=== PATIENT | male | born 1940 | race Caucasian/White ===

== ENCOUNTER 2020-04-10 18:41 | Inpatient (IN) | payer MEDICARE, OTHER, SELFPAY ==
[2020-04-10 18:42] VITALS: BP 94/56; PULSE 112; RESP 28; TEMP 36.7; O2SAT 96; BMI 25.0
--- NOTE | 2020-04-10 18:57 | XRR_ITS ---
PROCEDURE INFORMATION: Exam: XR Chest, 1 View Exam date and time: 04/10/2020 7:13 PM Age: 80 years old Clinical indication: Condition or disease; Lung condition and disease; Copd; Complications not specified; Shortness of breath; Prior surgery; Surgery type: Stents; Additional info: SOB TECHNIQUE: Imaging protocol: XR of the chest Views: 1 view. COMPARISON: 1. XR CHEST 09/11/2018 11:01 AM 2. CTA CHEST 04/11/2020 12:53 AM FINDINGS: Lungs: There is medial left basilar airspace disease which can be due to pneumonia or aspiration pneumonitis. Scarring present in the right lung base. Pleural space: No pleural effusion or pneumothorax. Heart/Mediastinum: The cardiac silhouette is not enlarged. The mediastinal contours are normal. Bones/joints: No acute osseous abnormality. XR/XR chest 1V portable [id number] IMPRESSION: Left lower lobe airspace disease. Consider pneumonia or aspiration pneumonitis.
--- NOTE | 2020-04-10 18:58 | ECG_ITS ---
[facility] Test Date: 2020-04-10 Pat Name: Santiago Islas Department: Room: Gender: Male Wood [employer]: : 1940 Requested By: Patrick Dunn Order Number: [id number] Radha MD: Sami Gillis M.D. Measurements Intervals [place] Rate: 103 P: 62 IA: 159 QRS: 70 QRSD: 82 T: 64 QT: 350 QTc: 460 Interpretive Statements SINUS TACHYCARDIA WITH FREQUENT SUPRAVENTRICULAR PREMATURE COMPLEXES POSSIBLE INFERIOR MYOCARDIAL INFARCTION [30 ms Q WAVE IN II/aVF], PROBABLY OLD Compared to ECG 09/11/2018 16:50:55 Sinus rhythm no longer present Myocardial infarct finding no longer present Electronically Signed On 04-11-2020 9:51:53 CDT by Sami Gillis M.D. [email or web address]
--- NOTE | 2020-04-10 18:59 | W.ED.WEAKNES ---
Documented by User: JUAN Boogie 04/10/20 19:46 HPI - Weakness General: Chief complaint: Weakness Stated complaint: WEAKNESS X 3 DAYS Time Seen by Provider: 04/10/20 18:57 History of Present Illness: HPI Narrative: Patient is an 80-year-old male who comes to the ED via EMS with generalized weakness. Patient has a past medical history of COPD, hypertension, hypothyroidism. symptoms started approximately 3 days ago. In the past when patient gets weak like this he gets around of steroids to help him. He just started taking his first dose of steroids today. He also has productive cough with some shortness of breath. His shortness of breath is a chronic issue and is on 2 L nasal cannula at home. Patient did state that 3 days ago he smoked a couple cigarettes and after that his cough and shortness of breath increased. Associated symptoms: Denies chest pain, chills, dysuria, fever(s), headache(s), nausea or vomiting Review of Systems Narrative: generalized weakness Const: Denies: fever(s), chills or fatigue Eyes: Denies: change in vision or eye discomfort ENMT: Denies: throat pain, odynophagia, nasal discharge or nasal congestion Card: Denies: chest pain, palpitations, edema, swelling of feet/ankles, dyspnea on exertion or orthopnea Resp: Reports: dyspnea and productive cough; Denies: non-productive cough GI: Denies: abdominal pain, nausea, vomiting, diarrhea, constipation or hematochezia : Denies: flank pain, difficulty urinating, dysuria or hematuria Musc: Denies: neck pain, back pain or extremity swelling Skin/Breast: Denies: rash or new lesions Neuro: Denies: headache(s), numbness in extremities or weakness in extremities [facility] ED PFSH: Medical History (Updated 04/11/20 @ 02:18 by Homero Dickey MD) BPH (benign prostatic hyperplasia) COPD (chronic obstructive pulmonary disease) 2 L [id number] CVA (cerebral vascular accident) Right-sided residual weakness Edema Enrolled in chronic care management History of carotid artery stenosis Hypertension Hypertension Hypothyroidism TAIWO (obstructive sleep apnea) Oxygen dependent Surgical History History of coronary artery stent placement History of endarterectomy CEA left-sided History of tonsillectomy Family History Other CAD (coronary artery disease) Stroke Social History Smoking and tobacco status: current every day smoker smokeless tobacco Alcohol intake: never Substance/Drug Use: never Household members: family Housing: House Physical Exam Narrative: EXAM NARRATIVE: Patient is an 80-year-old male that sitting comfortably on the exam bed when I enter the room. He is showing no signs of any fluid overload and has no pedal edema. Const: COMMON NORMALS: patient oriented x3 and alert GENERAL APPEARANCE: cooperative and frail appearing NUTRITIONAL APPEARANCE: cachectic HENMT: COMMON NORMALS: normocephalic HEAD & SCALP: normocephalic MOUTH: Normal oral and palatal mucosa present THROAT: posterior oropharynx normal and uvula midline Eye: COMMON NORMALS: Equal, round and reactive pupils present PUPIL: Yes Equal, round and reactive pupils present Neck/C-Spine: COMMON NORMALS: supple GENERAL: Yes normal visual inspection Resp: COMMON NORMALS: normal respiratory effort, No retractions and No use of accessory muscles AUSCULTATION: diminished lung sounds bilateral in the lower lung fowler Cardio: COMMON NORMALS: regular rate, regular rhythm, S1 normal heart sound present, S2 normal heart sound present, No gallops present (Cardio), No clicks present (Cardio), No murmurs present (Cardio) and Peripheral pulses 2+ throughout RATE: regular rate RHYTHM: regular rhythm HEART SOUNDS: S1 normal heart sound present and S2 normal heart sound present PERIPHERAL PULSES: Peripheral pulses 2+ throughout GI: COMMON NORMALS: Normal to inspection, nondistended, normoactive bowel sounds present, Soft to palpation, non-tender and no masses PALPATION: Yes Soft to palpation : COMMON NORMALS: Yes no CVA tenderness BLADDER/KIDNEY EXAM: Yes no CVA tenderness Back/Pelvis: COMMON NORMALS: no CVA tenderness Extremity: COMMON NORMALS: normal to inspection and no pedal edema Neuro: COMMON NORMALS: patient oriented x3 and moves all extremities SENSORIUM/ORIENTATION: Yes alert Skin: COMMON NORMALS: no rashes or lesions noted GENERAL SKIN EXAM: no rashes or lesions noted and dry skin Course Vital Signs: Vital signs: Vital Signs Temperature 97.6 F 04/11/20 11:25 Pulse Rate 112 H 04/11/20 11:25 Respiratory Rate 28 H 04/11/20 11:25 Blood Pressure 133/62 04/11/20 11:25 Pulse Oximetry 94 04/11/20 11:25 MDM - Weakness MDM Narrative: Medical decision making narrative: I started the history and physical exam and lab work-up for patient. Patient's blood pressure has been running low and was 84/63, pulse 112, respirations 28. I want to talk to Dr. Shankar about patient's case and she thought she should take over care of patient due to complexity and possible admission. Patient care was signed over to Dr. Shankar. Lab Data: Attestation: I reviewed the patient's lab results. Labs: Lab Results 04/10/20 04/10/20 04/10/20 Range/Units 19:15 19:15 19:15 WBC 26.8 H (4.0-10.0) 10^3/ uL RBC 5.08 (4.1-5.3) 10^6/u L Hgb 15.0 (11.7-16.6) g/dL Hct 47.9 (42.0-52.0) % MCV 94.3 H (80-94) fL MCH 29.5 (28.0-34.0) pg MCHC 31.3 (30.0-36.0) g/dL RDW 14.4 (12.1-15.1) % Plt Count 244 (130-400) 10^3/c mm MPV 9.9 (7.4-10.4) fL Neut % (Auto) 94.3 % Lymph % (Auto) 2.3 % Metcalfe % (Auto) 2.4 % Eos % (Auto) 0.0 % Baso % (Auto) 0.2 % Neut # (Auto) 25.24 H (1.8-7.7) 10^3/u L Lymph # (Auto) 0.6 L (0.8-4.8) 10^3/u L Metcalfe # (Auto) 0.6 (0.2-0.9) 10^3/u L Eos # (Auto) 0.0 (0.0-0.8) 10^3/u L Baso # (Auto) 0.1 (0.0-0.1) 10^3/u L Nucleated RBC % (a uto) 0 % Nucleated RBCs # 0.0 /100WBC PT (12.1-14.9) SECO NDS INR (0.8-1.2) D-Dimer (0-0.59) ug/mIFE U Sodium 140 (136-145) mmol/L Potassium 5.3 H (3.5-5.1) mmol/L Chloride 105 (98-107) mmol/L Carbon Dioxide 23 (22-29) mmol/L Anion Gap 17.3 (5-19) BUN 25 H (8-23) mg/dL Creatinine 1.2 (0.7-1.2) mg/dL GFR Calculation Not Reportable Glucose 194 H (65-115) mg/dL Calculated Osmolal ity 292 (285-295) mOsm/k g Lactic Acid (0.5-2.2) mmol/L Calcium 9.7 (8.5-10.5) mg/dL Total Bilirubin 0.5 (0.15-1.2) mg/dL AST 14 (0-40) U/L ALT 16 (0-41) U/L Alkaline Phosphata se 67 (40-130) IU/L Troponin T Baselin e 72 H (0-15) ng/L Troponin T 120 Min [place] (0-15) ng/L Delta Troponin T (0-10) ABS# C-Reactive Protein (0.0-4.9) mg/L NT-Pro-B Natriuret Pep 811 H (0-450) pg/mL Total Protein 6.9 (6.6-8.7) g/dL Albumin 3.9 (3.5-5.2) g/dL Globulin 3.0 (1.3-4.6) g/dL Procalcitonin (0-0.5) ng/mL Urine Color (Yellow) Urine Appearance (CLEAR) Urine pH (5-7) Ur Specific Gravit y (1.005-1.030) Urine Protein (Negative) Urine Glucose (UA) (Normal) Urine Ketones (Negative) Urine Blood (Negative) Urine Nitrate (Negative) Urine Bilirubin (NEGATIVE) Urine Urobilinogen (Negative) mg/dL Ur Leukocyte Blanca ase (Negative) Urine RBC (0-2) /hpf Urine WBC (0-5) /hpf Ur Squamous Epith Cells (0-5) Amorphous Sediment Urine Bacteria (NONE) Hyaline Casts Influenza Type A A g (Negative) Influenza Type B A g (Negative) SARS-CoV-2 Ag (Rap id) (Negative) 04/10/20 04/10/20 04/10/20 Range/Units 19:15 19:15 19:15 WBC (4.0-10.0) 10^3/ uL RBC (4.1-5.3) 10^6/u L Hgb (11.7-16.6) g/dL Hct (42.0-52.0) % MCV (80-94) fL MCH (28.0-34.0) pg MCHC (30.0-36.0) g/dL RDW (12.1-15.1) % Plt Count (130-400) 10^3/c mm MPV (7.4-10.4) fL Neut % (Auto) % Lymph % (Auto) % Metcalfe % (Auto) % Eos % (Auto) % Baso % (Auto) % Neut # (Auto) (1.8-7.7) 10^3/u L Lymph # (Auto) (0.8-4.8) 10^3/u L Metcalfe # (Auto) (0.2-0.9) 10^3/u L Eos # (Auto) (0.0-0.8) 10^3/u L Baso # (Auto) (0.0-0.1) 10^3/u L Nucleated RBC % (a uto) % Nucleated RBCs # /100WBC PT 12.40 (12.1-14.9) SECO NDS INR 0.90 (0.8-1.2) D-Dimer 1.32 H (0-0.59) ug/mIFE U Sodium (136-145) mmol/L Potassium (3.5-5.1) mmol/L Chloride (98-107) mmol/L Carbon Dioxide (22-29) mmol/L Anion Gap (5-19) BUN (8-23) mg/dL Creatinine (0.7-1.2) mg/dL GFR Calculation Glucose (65-115) mg/dL Calculated Osmolal ity (285-295) mOsm/k g Lactic Acid 2.3 H (0.5-2.2) mmol/L Calcium (8.5-10.5) mg/dL Total Bilirubin (0.15-1.2) mg/dL AST (0-40) U/L ALT (0-41) U/L Alkaline Phosphata se (40-130) IU/L Troponin T Baselin e (0-15) ng/L Troponin T 120 Min [place] (0-15) ng/L Delta Troponin T (0-10) ABS# C-Reactive Protein 111.9 H (0.0-4.9) mg/L NT-Pro-B Natriuret Pep (0-450) pg/mL Total Protein (6.6-8.7) g/dL Albumin (3.5-5.2) g/dL Globulin (1.3-4.6) g/dL Procalcitonin 0.63 H (0-0.5) ng/mL Urine Color (Yellow) Urine Appearance (CLEAR) Urine pH (5-7) Ur Specific Gravit y (1.005-1.030) Urine Protein (Negative) Urine Glucose (UA) (Normal) Urine Ketones (Negative) Urine Blood (Negative) Urine Nitrate (Negative) Urine Bilirubin (NEGATIVE) Urine Urobilinogen (Negative) mg/dL Ur Leukocyte Blanca ase (Negative) Urine RBC (0-2) /hpf Urine WBC (0-5) /hpf Ur Squamous Epith Cells (0-5) Amorphous Sediment Urine Bacteria (NONE) Hyaline Casts Influenza Type A A g (Negative) Influenza Type B A g (Negative) SARS-CoV-2 Ag (Rap id) (Negative) 04/10/20 04/10/20 04/10/20 Range/Units 19:48 19:48 21:05 WBC (4.0-10.0) 10^3/ uL RBC (4.1-5.3) 10^6/u L Hgb (11.7-16.6) g/dL Hct (42.0-52.0) % MCV (80-94) fL MCH (28.0-34.0) pg MCHC (30.0-36.0) g/dL RDW (12.1-15.1) % Plt Count (130-400) 10^3/c mm MPV (7.4-10.4) fL Neut % (Auto) % Lymph % (Auto) % Metcalfe % (Auto) % Eos % (Auto) % Baso % (Auto) % Neut # (Auto) (1.8-7.7) 10^3/u L Lymph # (Auto) (0.8-4.8) 10^3/u L Metcalfe # (Auto) (0.2-0.9) 10^3/u L Eos # (Auto) (0.0-0.8) 10^3/u L Baso # (Auto) (0.0-0.1) 10^3/u L Nucleated RBC % (a uto) % Nucleated RBCs # /100WBC PT (12.1-14.9) SECO NDS INR (0.8-1.2) D-Dimer (0-0.59) ug/mIFE U Sodium (136-145) mmol/L Potassium (3.5-5.1) mmol/L Chloride (98-107) mmol/L Carbon Dioxide (22-29) mmol/L Anion Gap (5-19) BUN (8-23) mg/dL Creatinine (0.7-1.2) mg/dL GFR Calculation Glucose (65-115) mg/dL Calculated Osmolal ity (285-295) mOsm/k g Lactic Acid (0.5-2.2) mmol/L Calcium (8.5-10.5) mg/dL Total Bilirubin (0.15-1.2) mg/dL AST (0-40) U/L ALT (0-41) U/L Alkaline Phosphata se (40-130) IU/L Troponin T Baselin e (0-15) ng/L Troponin T 120 Min [place] 57.20 H (0-15) ng/L Delta Troponin T -14.80 L (0-10) ABS# C-Reactive Protein (0.0-4.9) mg/L NT-Pro-B Natriuret Pep (0-450) pg/mL Total Protein (6.6-8.7) g/dL Albumin (3.5-5.2) g/dL Globulin (1.3-4.6) g/dL Procalcitonin (0-0.5) ng/mL Urine Color (Yellow) Urine Appearance (CLEAR) Urine pH (5-7) Ur Specific Gravit y (1.005-1.030) Urine Protein (Negative) Urine Glucose (UA) (Normal) Urine Ketones (Negative) Urine Blood (Negative) Urine Nitrate (Negative) Urine Bilirubin (NEGATIVE) Urine Urobilinogen (Negative) mg/dL Ur Leukocyte Blanca ase (Negative) Urine RBC (0-2) /hpf Urine WBC (0-5) /hpf Ur Squamous Epith Cells (0-5) Amorphous Sediment Urine Bacteria (NONE) Hyaline Casts Influenza Type A A g Negative (Negative) Influenza Type B A g Negative (Negative) SARS-CoV-2 Ag (Rap id) Negative (Negative) 04/10/20 Range/Units 21:30 WBC (4.0-10.0) 10^3/ uL RBC (4.1-5.3) 10^6/u L Hgb (11.7-16.6) g/dL Hct (42.0-52.0) % MCV (80-94) fL MCH (28.0-34.0) pg MCHC (30.0-36.0) g/dL RDW (12.1-15.1) % Plt Count (130-400) 10^3/c mm MPV (7.4-10.4) fL Neut % (Auto) % Lymph % (Auto) % Metcalfe % (Auto) % Eos % (Auto) % Baso % (Auto) % Neut # (Auto) (1.8-7.7) 10^3/u L Lymph # (Auto) (0.8-4.8) 10^3/u L Metcalfe # (Auto) (0.2-0.9) 10^3/u L Eos # (Auto) (0.0-0.8) 10^3/u L Baso # (Auto) (0.0-0.1) 10^3/u L Nucleated RBC % (a uto) % Nucleated RBCs # /100WBC PT (12.1-14.9) SECO NDS INR (0.8-1.2) D-Dimer (0-0.59) ug/mIFE U Sodium (136-145) mmol/L Potassium (3.5-5.1) mmol/L Chloride (98-107) mmol/L Carbon Dioxide (22-29) mmol/L Anion Gap (5-19) BUN (8-23) mg/dL Creatinine (0.7-1.2) mg/dL GFR Calculation Glucose (65-115) mg/dL Calculated Osmolal ity (285-295) mOsm/k g Lactic Acid (0.5-2.2) mmol/L Calcium (8.5-10.5) mg/dL Total Bilirubin (0.15-1.2) mg/dL AST (0-40) U/L ALT (0-41) U/L Alkaline Phosphata se (40-130) IU/L Troponin T Baselin e (0-15) ng/L Troponin T 120 Min [place] (0-15) ng/L Delta Troponin T (0-10) ABS# C-Reactive Protein (0.0-4.9) mg/L NT-Pro-B Natriuret Pep (0-450) pg/mL Total Protein (6.6-8.7) g/dL Albumin (3.5-5.2) g/dL Globulin (1.3-4.6) g/dL Procalcitonin (0-0.5) ng/mL Urine Color Yellow (Yellow) Urine Appearance Clear (CLEAR) Urine pH 5 (5-7) Ur Specific Gravit y 1.020 (1.005-1.030) Urine Protein Neg (Negative) Urine Glucose (UA) Norm (Normal) Urine Ketones Negative (Negative) Urine Blood Neg (Negative) Urine Nitrate Negative (Negative) Urine Bilirubin Neg (NEGATIVE) Urine Urobilinogen Norm (Negative) mg/dL Ur Leukocyte Blanca ase Negative (Negative) Urine RBC Rare (0-2) /hpf Urine WBC Rare (0-5) /hpf Ur Squamous Epith Cells Rare (0-5) Amorphous Sediment Not Reportable Urine Bacteria Trace (NONE) Hyaline Casts Rare Influenza Type A A g (Negative) Influenza Type B A g (Negative) SARS-CoV-2 Ag (Rap id) (Negative) Discharge Plan Discharge Patient Disposition: Admitted As Inpatient Admit Provider: Homero Dickey Discharge Date/Time: 04/11/20 00:53 Coding Level of Care Code ED Manager Disaster Recovery for Chg Fwd Exam Comprehensive Documented by User: Mona Shankar MD 04/11/20 12:17 HPI - Weakness General: Chief complaint: Weakness Stated complaint: WEAKNESS X 3 DAYS Time Seen by Provider: 04/10/20 18:57 PFS ED PFSH: Medical History (Updated 04/11/20 @ 02:18 by Homero Dickey MD) BPH (benign prostatic hyperplasia) COPD (chronic obstructive pulmonary disease) 2 L [id number] CVA (cerebral vascular accident) Right-sided residual weakness Edema Enrolled in chronic care management History of carotid artery stenosis Hypertension Hypertension Hypothyroidism TAIWO (obstructive sleep apnea) Oxygen dependent Surgical History History of coronary artery stent placement History of endarterectomy CEA left-sided History of tonsillectomy Family History Other CAD (coronary artery disease) Stroke Social History Smoking and tobacco status: current every day smoker smokeless tobacco Alcohol intake: never Substance/Drug Use: never Household members: family Housing: House Course ED course: I assumed care of this patient from JUAN Boogie. The patient initially was hypotensive but responded well to a small amount of fluid. His white count is markedly elevated. I do not see a clear pneumonia on his chest x-ray. He does not have any evidence of UTI. COVID was negative and clinically his symptoms and findings do not suggest COVID. He will be admitted for IV antibiotics and further evaluation and treatment. Vital Signs: Vital signs: Vital Signs Temperature 97.6 F 04/11/20 11:25 Pulse Rate 112 H 04/11/20 11:25 Respiratory Rate 28 H 04/11/20 11:25 Blood Pressure 133/62 04/11/20 11:25 Pulse Oximetry 94 04/11/20 11:25 MDM - Weakness Lab Data: Labs: Lab Results 04/10/20 04/10/20 04/10/20 Range/Units 19:15 19:15 19:15 WBC 26.8 H (4.0-10.0) 10^3/ uL RBC 5.08 (4.1-5.3) 10^6/u L Hgb 15.0 (11.7-16.6) g/dL Hct 47.9 (42.0-52.0) % MCV 94.3 H (80-94) fL MCH 29.5 (28.0-34.0) pg MCHC 31.3 (30.0-36.0) g/dL RDW 14.4 (12.1-15.1) % Plt Count 244 (130-400) 10^3/c mm MPV 9.9 (7.4-10.4) fL Neut % (Auto) 94.3 % Lymph % (Auto) 2.3 % Metcalfe % (Auto) 2.4 % Eos % (Auto) 0.0 % Baso % (Auto) 0.2 % Neut # (Auto) 25.24 H (1.8-7.7) 10^3/u L Lymph # (Auto) 0.6 L (0.8-4.8) 10^3/u L Metcalfe # (Auto) 0.6 (0.2-0.9) 10^3/u L Eos # (Auto) 0.0 (0.0-0.8) 10^3/u L Baso # (Auto) 0.1 (0.0-0.1) 10^3/u L Nucleated RBC % (a uto) 0 % Nucleated RBCs # 0.0 /100WBC PT (12.1-14.9) SECO NDS INR (0.8-1.2) D-Dimer (0-0.59) ug/mIFE U Sodium 140 (136-145) mmol/L Potassium 5.3 H (3.5-5.1) mmol/L Chloride 105 (98-107) mmol/L Carbon Dioxide 23 (22-29) mmol/L Anion Gap 17.3 (5-19) BUN 25 H (8-23) mg/dL Creatinine 1.2 (0.7-1.2) mg/dL GFR Calculation Not Reportable Glucose 194 H (65-115) mg/dL Calculated Osmolal ity 292 (285-295) mOsm/k g Lactic Acid (0.5-2.2) mmol/L Calcium 9.7 (8.5-10.5) mg/dL Total Bilirubin 0.5 (0.15-1.2) mg/dL AST 14 (0-40) U/L ALT 16 (0-41) U/L Alkaline Phosphata se 67 (40-130) IU/L Troponin T Baselin e 72 H (0-15) ng/L Troponin T 120 Min [place] (0-15) ng/L Delta Troponin T (0-10) ABS# C-Reactive Protein (0.0-4.9) mg/L NT-Pro-B Natriuret Pep 811 H (0-450) pg/mL Total Protein 6.9 (6.6-8.7) g/dL Albumin 3.9 (3.5-5.2) g/dL Globulin 3.0 (1.3-4.6) g/dL Procalcitonin (0-0.5) ng/mL Urine Color (Yellow) Urine Appearance (CLEAR) Urine pH (5-7) Ur Specific Gravit y (1.005-1.030) Urine Protein (Negative) Urine Glucose (UA) (Normal) Urine Ketones (Negative) Urine Blood (Negative) Urine Nitrate (Negative) Urine Bilirubin (NEGATIVE) Urine Urobilinogen (Negative) mg/dL Ur Leukocyte Blanca ase (Negative) Urine RBC (0-2) /hpf Urine WBC (0-5) /hpf Ur Squamous Epith Cells (0-5) Amorphous Sediment Urine Bacteria (NONE) Hyaline Casts Influenza Type A A g (Negative) Influenza Type B A g (Negative) SARS-CoV-2 Ag (Rap id) (Negative) 04/10/20 04/10/20 04/10/20 Range/Units 19:15 19:15 19:15 WBC (4.0-10.0) 10^3/ uL RBC (4.1-5.3) 10^6/u L Hgb (11.7-16.6) g/dL Hct (42.0-52.0) % MCV (80-94) fL MCH (28.0-34.0) pg MCHC (30.0-36.0) g/dL RDW (12.1-15.1) % Plt Count (130-400) 10^3/c mm MPV (7.4-10.4) fL Neut % (Auto) % Lymph % (Auto) % Metcalfe % (Auto) % Eos % (Auto) % Baso % (Auto) % Neut # (Auto) (1.8-7.7) 10^3/u L Lymph # (Auto) (0.8-4.8) 10^3/u L Metcalfe # (Auto) (0.2-0.9) 10^3/u L Eos # (Auto) (0.0-0.8) 10^3/u L Baso # (Auto) (0.0-0.1) 10^3/u L Nucleated RBC % (a uto) % Nucleated RBCs # /100WBC PT 12.40 (12.1-14.9) SECO NDS INR 0.90 (0.8-1.2) D-Dimer 1.32 H (0-0.59) ug/mIFE U Sodium (136-145) mmol/L Potassium (3.5-5.1) mmol/L Chloride (98-107) mmol/L Carbon Dioxide (22-29) mmol/L Anion Gap (5-19) BUN (8-23) mg/dL Creatinine (0.7-1.2) mg/dL GFR Calculation Glucose (65-115) mg/dL Calculated Osmolal ity (285-295) mOsm/k g Lactic Acid 2.3 H (0.5-2.2) mmol/L Calcium (8.5-10.5) mg/dL Total Bilirubin (0.15-1.2) mg/dL AST (0-40) U/L ALT (0-41) U/L Alkaline Phosphata se (40-130) IU/L Troponin T Baselin e (0-15) ng/L Troponin T 120 Min [place] (0-15) ng/L Delta Troponin T (0-10) ABS# C-Reactive Protein 111.9 H (0.0-4.9) mg/L NT-Pro-B Natriuret Pep (0-450) pg/mL Total Protein (6.6-8.7) g/dL Albumin (3.5-5.2) g/dL Globulin (1.3-4.6) g/dL Procalcitonin 0.63 H (0-0.5) ng/mL Urine Color (Yellow) Urine Appearance (CLEAR) Urine pH (5-7) Ur Specific Gravit y (1.005-1.030) Urine Protein (Negative) Urine Glucose (UA) (Normal) Urine Ketones (Negative) Urine Blood (Negative) Urine Nitrate (Negative) Urine Bilirubin (NEGATIVE) Urine Urobilinogen (Negative) mg/dL Ur Leukocyte Blanca ase (Negative) Urine RBC (0-2) /hpf Urine WBC (0-5) /hpf Ur Squamous Epith Cells (0-5) Amorphous Sediment Urine Bacteria (NONE) Hyaline Casts Influenza Type A A g (Negative) Influenza Type B A g (Negative) SARS-CoV-2 Ag (Rap id) (Negative) 04/10/20 04/10/20 04/10/20 Range/Units 19:48 19:48 21:05 WBC (4.0-10.0) 10^3/ uL RBC (4.1-5.3) 10^6/u L Hgb (11.7-16.6) g/dL Hct (42.0-52.0) % MCV (80-94) fL MCH (28.0-34.0) pg MCHC (30.0-36.0) g/dL RDW (12.1-15.1) % Plt Count (130-400) 10^3/c mm MPV (7.4-10.4) fL Neut % (Auto) % Lymph % (Auto) % Metcalfe % (Auto) % Eos % (Auto) % Baso % (Auto) % Neut # (Auto) (1.8-7.7) 10^3/u L Lymph # (Auto) (0.8-4.8) 10^3/u L Metcalfe # (Auto) (0.2-0.9) 10^3/u L Eos # (Auto) (0.0-0.8) 10^3/u L Baso # (Auto) (0.0-0.1) 10^3/u L Nucleated RBC % (a uto) % Nucleated RBCs # /100WBC PT (12.1-14.9) SECO NDS INR (0.8-1.2) D-Dimer (0-0.59) ug/mIFE U Sodium (136-145) mmol/L Potassium (3.5-5.1) mmol/L Chloride (98-107) mmol/L Carbon Dioxide (22-29) mmol/L Anion Gap (5-19) BUN (8-23) mg/dL Creatinine (0.7-1.2) mg/dL GFR Calculation Glucose (65-115) mg/dL Calculated Osmolal ity (285-295) mOsm/k g Lactic Acid (0.5-2.2) mmol/L Calcium (8.5-10.5) mg/dL Total Bilirubin (0.15-1.2) mg/dL AST (0-40) U/L ALT (0-41) U/L Alkaline Phosphata se (40-130) IU/L Troponin T Baselin e (0-15) ng/L Troponin T 120 Min [place] 57.20 H (0-15) ng/L Delta Troponin T -14.80 L (0-10) ABS# C-Reactive Protein (0.0-4.9) mg/L NT-Pro-B Natriuret Pep (0-450) pg/mL Total Protein (6.6-8.7) g/dL Albumin (3.5-5.2) g/dL Globulin (1.3-4.6) g/dL Procalcitonin (0-0.5) ng/mL Urine Color (Yellow) Urine Appearance (CLEAR) Urine pH (5-7) Ur Specific Gravit y (1.005-1.030) Urine Protein (Negative) Urine Glucose (UA) (Normal) Urine Ketones (Negative) Urine Blood (Negative) Urine Nitrate (Negative) Urine Bilirubin (NEGATIVE) Urine Urobilinogen (Negative) mg/dL Ur Leukocyte Blanca ase (Negative) Urine RBC (0-2) /hpf Urine WBC (0-5) /hpf Ur Squamous Epith Cells (0-5) Amorphous Sediment Urine Bacteria (NONE) Hyaline Casts Influenza Type A A g Negative (Negative) Influenza Type B A g Negative (Negative) SARS-CoV-2 Ag (Rap id) Negative (Negative) 04/10/20 Range/Units 21:30 WBC (4.0-10.0) 10^3/ uL RBC (4.1-5.3) 10^6/u L Hgb (11.7-16.6) g/dL Hct (42.0-52.0) % MCV (80-94) fL MCH (28.0-34.0) pg MCHC (30.0-36.0) g/dL RDW (12.1-15.1) % Plt Count (130-400) 10^3/c mm MPV (7.4-10.4) fL Neut % (Auto) % Lymph % (Auto) % [place] % (Auto) % Eos % (Auto) % Baso % (Auto) % Neut # (Auto) (1.8-7.7) 10^3/u L Lymph # (Auto) (0.8-4.8) 10^3/u L [place] # (Auto) (0.2-0.9) 10^3/u L Eos # (Auto) (0.0-0.8) 10^3/u L Baso # (Auto) (0.0-0.1) 10^3/u L Nucleated RBC % (a uto) % Nucleated RBCs # /100WBC PT (12.1-14.9) SECO NDS INR (0.8-1.2) D-Dimer (0-0.59) ug/mIFE U Sodium (136-145) mmol/L Potassium (3.5-5.1) mmol/L Chloride (98-107) mmol/L Carbon Dioxide (22-29) mmol/L Anion Gap (5-19) BUN (8-23) mg/dL Creatinine (0.7-1.2) mg/dL GFR Calculation Glucose (65-115) mg/dL Calculated Osmolal ity (285-295) mOsm/k g Lactic Acid (0.5-2.2) mmol/L Calcium (8.5-10.5) mg/dL Total Bilirubin (0.15-1.2) mg/dL AST (0-40) U/L ALT (0-41) U/L Alkaline Phosphata se (40-130) IU/L Troponin T Baselin e (0-15) ng/L Troponin T 120 Min [place] (0-15) ng/L Delta Troponin T (0-10) ABS# C-Reactive Protein (0.0-4.9) mg/L NT-Pro-B Natriuret Pep (0-450) pg/mL Total Protein (6.6-8.7) g/dL Albumin (3.5-5.2) g/dL Globulin (1.3-4.6) g/dL Procalcitonin (0-0.5) ng/mL Urine Color Yellow (Yellow) Urine Appearance Clear (CLEAR) Urine pH 5 (5-7) Ur Specific Gravit y 1.020 (1.005-1.030) Urine Protein Neg (Negative) Urine Glucose (UA) Norm (Normal) Urine Ketones Negative (Negative) Urine Blood Neg (Negative) Urine Nitrate Negative (Negative) Urine Bilirubin Neg (NEGATIVE) Urine Urobilinogen Norm (Negative) mg/dL Ur Leukocyte Blanca ase Negative (Negative) Urine RBC Rare (0-2) /hpf Urine WBC Rare (0-5) /hpf Ur Squamous Epith Cells Rare (0-5) Amorphous Sediment Not Reportable Urine Bacteria Trace (NONE) Hyaline Casts Rare Influenza Type A A g (Negative) Influenza Type B A g (Negative) SARS-CoV-2 Ag (Rap id) (Negative) Discharge Plan Discharge Patient Disposition: Admitted As Inpatient Admit Provider: Homero Dickey Discharge Date/Time: 04/11/20 00:53 Coding Level of Care Code ED Manager Disaster Recovery for Chg Fwd Exam Comprehensive
[2020-04-10 19:23] LABS: Basophils # 0.1 10^3/uL (0.0-0.1); Basophils % 0.2 %; Hematocrit 47.9 % (42.0-52.0); Lymphocytes # 0.6 10^3/uL (0.8-4.8); Lymphocytes % 2.3 %; Mean Corpuscular HGB Conc 31.3 g/dL (30.0-36.0); Mean Corpuscular Hemoglobin 29.5 pg (28.0-34.0); Mean Corpuscular Volume 94.3 fL (80-94); Mean Platelet Volume 9.9 fL (7.4-10.4); Monocytes # 0.6 10^3/uL (0.2-0.9); Monocytes % 2.4 %; Neutrophils # 25.24 10^3/uL (1.8-7.7); Neutrophils % 94.3 %; Nucleated Red Blood Cells % 0 %; Platelet Count 244 10^3/cmm (130-400); Red Blood Count 5.08 10^6/uL (4.1-5.3); Red Cell Distribution Width 14.4 % (12.1-15.1); White Blood Count 26.8 10^3/uL (4.0-10.0)
[2020-04-10 19:28] VITALS: BP 84/63; PULSE 110; RESP 26; O2SAT 97
[2020-04-10 19:40] VITALS: BP 94/61; PULSE 103; RESP 28; O2SAT 98
[2020-04-10 19:44] LABS: Troponin(5th) Baseline 72 ng/L (0-15)
[2020-04-10 19:53] LABS: Alanine Aminotransferase 16 U/L (0-41); Albumin Level 3.9 g/dL (3.5-5.2); Alkaline Phosphatase 67 IU/L (40-130); Anion Gap 17.3 (5-19); Aspartate Amino Transferase 14 U/L (0-40); Blood Urea Nitrogen 25 mg/dL (8-23); Calcium 9.7 mg/dL (8.5-10.5); Carbon Dioxide 23 mmol/L (22-29); Chloride 105 mmol/L (98-107); Creatinine Clr Calc Pharmacy 46.1113; Glucose 194 mg/dL (65-115); NT Pro B Type Natriuretic Pept 811 pg/mL (0-450); Osmolality Calculated 292 mOsm/kg (285-295); Potassium 5.3 mmol/L (3.5-5.1); Sodium 140 mmol/L (136-145); Total Bilirubin 0.5 mg/dL (0.15-1.2); Total Protein 6.9 g/dL (6.6-8.7)
[2020-04-10 20:06] LABS: D Dimer 1.32 ug/mIFEU (0-0.59)
[2020-04-10] MEDS: sodium chloride 0.9% 500 ML IV (20:17)
[2020-04-10 20:18] VITALS: BP 101/50; PULSE 108; RESP 26; O2SAT 98
[2020-04-10] MEDS: lactated ringers 1,000 ML 999 ML IV (20:18)
[2020-04-10 20:43] LABS: SARS Covid-2 Antigen Negative (Negative)
[2020-04-10 20:55] LABS: Lactic Sepsis W/Reflex 2.3 mmol/L (0.5-2.2)
[2020-04-10 21:00] LABS: Influenza A by IFA Negative (Negative); Influenza B by IFA Negative (Negative)
[2020-04-10 21:27] LABS: Reflex Lactate Order REFLEX LACTIC ORDERD
[2020-04-10 21:41] VITALS: BP 128/97; PULSE 104; RESP 26; O2SAT 97
[2020-04-10 21:59] LABS: Urine Appearance Clear (CLEAR); Urine Color Yellow (Yellow); pH Urine 5 (5-7)
[2020-04-10 22:00] LABS: Bacteria Urine TRACE; Bilirubin Urine Neg (NEGATIVE); Blood Urine Neg (Negative); Glucose Urine UA Norm (Normal); Hyaline Casts Urine RARE; Ketones Urine Negative (Negative); Leukocyte Esterase Urine Negative (Negative); Nitrate Urine Negative (Negative); Protein Urine Neg (Negative); RBC Urine RARE /hpf (0-2); Squamous Epithelial Cell Urine RARE (0-5); Urobilinogen Urine Norm (Negative); WBC Urine RARE /hpf (0-5)
--- NOTE | 2020-04-10 22:25 | P.HP_ITS ---
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 Patient is stating that whenever he gets a chance he smokes cigarettes, at home is not bleeding very active lifestyle, he is feeling very lethargic and tired, his son helps him with daily activities usually, he was so fatigued and lethargic that he could not help himself in the bathroom. His son sent him to the ED for further evaluation. Patient is not a good historian but is denying fever, v omiting, diarrhea, he is endorsing productive cough, chest congestion, respiratory distress, constipation. He mostly stays in his wheelchair. Diagnostics in the ER revealed leukocytosis, tachypnea, high d-dimer, high lactic acid, he was treated with ceftriaxone and azithromycin, CTA did not reveal PE, showed left-sided infiltrate Urine antigen requested, COVID antigen negative Review of Systems Const: Reports: chills, body aches, change in appetite and fatigue; Denies: fever(s) Eyes: Denies: change in vision ENMT: Denies: throat pain or uvular edema Card: Reports: dyspnea on exertion and orthopnea; Denies: chest pain, irregular heart rhythm or swelling of feet/ankles Resp: Reports: dyspnea, pain on inspiration and change in phlegm color GI: Denies: abdominal pain, nausea or vomiting : Denies: flank pain Musc: Denies: neck pain Skin/Breast: Reports: lesions Neuro: Denies: headache(s) Psych: Denies: anxiety Endo: Denies: polyuria Brian/Lymph: Denies: easy bruising All/Imm: Denies: urticaria Medications/Allergies Home Medications Medication Instructions Recorded Confirmed Last Taken Type metoprolol tartrate 25 mg tablet 25 mg PO BID 90 Days #180 tab 09/13/19 04/10/20 04/10/20 Rx levothyroxine 50 mcg tablet 50 mcg PO DAILY 90 Days #90 tab 10/17/19 04/10/20 04/10/20 Rx albuterol sulfate 90 mcg/actuation 2 puff INHALATION Q4H gm 11/07/19 04/10/20 04/10/20 History aerosol inhaler clopidogrel 75 mg tablet 75 mg PO DAILY 11/07/19 04/10/20 04/10/20 History quinapril 40 mg tablet 40 mg PO BID 11/07/19 04/10/20 04/10/20 History terazosin 5 mg capsule 5 mg PO DAILY 11/07/19 04/10/20 04/10/20 History atorvastatin 10 mg tablet 10 mg PO DAILY #90 tab 02/22/20 04/10/20 04/10/20 Rx prednisone 10 mg tablet 10 mg PO BID 20 Days #40 tab 03/19/20 04/10/20 04/10/20 Rx nifedipine 30 mg tablet,extended 30 mg PO DAILY #90 tab 03/26/20 04/10/20 04/10/20 Rx release arformoterol [Brovana] See Rx Instructions .ROUTE .COMPLEX 04/10/20 04/10/20 04/10/20 History budesonide-formoterol See Rx Instructions .ROUTE .COMPLEX 04/10/20 04/10/20 04/10/20 History diphenhydramine-acetaminophen 1 tab PO BEDTIME 04/10/20 04/10/20 04/09/20 History [Tylenol PM Extra Strength] docusate sodium [Colace] 100 mg PO BEDTIME 04/10/20 04/10/20 04/09/20 History ipratropium bromide [Atrovent HFA] See Rx Instructions .ROUTE .COMPLEX 04/10/20 04/10/20 04/10/20 History Allergies Allergy/AdvReac Type Severity Reaction Status Date / Time hydromorphone Allergy unverified Verified 04/10/20 20:22 meperidine Allergy unverified Verified 04/10/20 20:22 nalbuphine Allergy unverified Verified 04/10/20 20:22 PFSH Acute PFSH: Medical History BPH (benign prostatic hyperplasia) COPD (chronic obstructive pulmonary disease) 2 L [id number] CVA (cerebral vascular accident) Right-sided residual weakness Edema Enrolled in chronic care management History of carotid artery stenosis Hypertension Hypertension Hypothyroidism TAIWO (obstructive sleep apnea) Oxygen dependent Surgical History History of coronary artery stent placement History of endarterectomy CEA left-sided History of tonsillectomy Family History Other CAD (coronary artery disease) Stroke Social History Smoking and tobacco status: current every day smoker smokeless tobacco Alcohol intake: never Substance/Drug Use: never Household members: family Housing: House Vitals/I&O/Wt Last Vital Signs Temp 98.1 F 04/10/20 18:42 Pulse 104 H 04/10/20 21:41 Resp 26 H 04/10/20 21:41 BP 128/97 04/10/20 21:41 Pulse Ox 97 04/10/20 21:41 04/10/20 04/10/20 04/10/20 06:59 14:59 22:59 Intake Total 500 / 500 Balance 500 / 500 Weight last 48 hrs Weight 72.575 kg Physical Exam Narrative: EXAM NARRATIVE: Unkempt appearance Patient has been coughing in the room, productive cough, chest congestion Diminished breath sounds bilaterally, rhonchi left greater than right, no active respiratory distress S1, S2 no tachycardia or heart failure No lower extremity edema gangrene or ulcer Abdomen soft nontender nondistended bowel sound present Neurologically nonfocal exam, patient is awake alert oriented GCS 15 Irritable mood Data : 04/11/20 01:30 04/10/20 19:15 Micro: Microbiology 04/10/20 19:48 Blood Culture - Preliminary Blood SPECIMEN COLLECTED 04/10/20 19:15 Blood Culture - Preliminary Blood SPECIMEN COLLECTED A&P Assessment and plan (1) Community acquired pneumonia: Status: Acute (2) Sepsis: Status: Acute (3) BPH (benign prostatic hyperplasia): Status: Acute (4) Constipation: Status: Acute (5) COPD (chronic obstructive pulmonary disease): Status: Acute Additional A&P Information Community-acquired pneumonia, left-sided likely bacterial pneumonia COVID antigen negative Treat with ceftriaxone and azithromycin Urine antigen requested No active restaurant distress, patient is not confused, pneumonia severity index: Moderate Sepsis secondary to pneumonia Sepsis criteria met with leukocytosis, tachypnea,, lactic acidemia, source of infection found, Currently on fluids and antibiotics Blood pressure normotensive Active smoker: Nicotine dependence: Patient is still smoking, needs extensive counseling to motivate him quitting smoking to avoid COPD exacerbation Acute on chronic hypoxia with underlying severe COPD: Currently saturating well on 3 L nasal cannula at home he has been using 2 L, no active respiratory distress DuoNeb every 6 PRN use Recurrent left-sided pneumonia, CT scan did not show any mass or significant pulmonary nodules Severe COPD as per pulmonary function test Constipation: Continue Dulcolax, patient had one bowel movement in the ER DNR/DNI Cardiac diet DVT prophylaxis Lovenox Attestations Medical Necessity Statement*: Anticipating stay in the hospital course more than 2 midnights continued IV antibiotics for sepsis secondary to community- acquired pneumonia Time Spent in Patient Care: (>than 50% of time spent in counselling and/or direct pt care on unit) . 45 minutes Coding Level of Care Code Acute Telehealth Coordinator for [facility] Diagnoses Community acquired pneumonia J18.9 Sepsis A41.9 BPH (benign prostatic hyperplasia) N40.0 Constipation K59.00 COPD (chronic obstructive pulmonary disease) J44.9
[2020-04-10] MEDS: cefTRIAXone 1,000 MG in sodium chloride 0.9% (plus) 50 ML 100 MG IV (22:35)
[2020-04-10 23:03] LABS: Procalcitonin 0.63 ng/mL (0-0.5)
[2020-04-10 23:05] VITALS: BP 134/77; PULSE 93; RESP 17; O2SAT 95
[2020-04-10 23:05] LABS: Lactic Acid level (Lactate) 0.9 mmol/L (0.5-2.2)
[2020-04-10 23:13] LABS: C Reactive Protein 111.9 mg/L (0.0-4.9)
[2020-04-11] VITALS (17 sets, daily range): BP systolic 122–139; BP diastolic 51–79; PULSE 59–112; RESP 16–28; TEMP 36.4–36.8; O2SAT 92–97
--- NOTE | 2020-04-11 00:03 | CTR_ITS ---
PROCEDURE INFORMATION: Exam: CT Angiography Chest With Contrast Exam date and time: 04/11/2020 12:07 AM Age: 80 years old Clinical indication: Shortness of breath; Prior surgery; Surgery type: Stents; Additional info: St TECHNIQUE: Imaging protocol: Computed tomographic angiography of the chest with intravenous contrast. 3D rendering (Not supervised by radiologist): MIP and/or 3D reconstructed images were created by the technologist. Radiation optimization: All CT scans at this facility use at least one of these dose optimization techniques: automated exposure control; mA and/or kV adjustment per patient size (includes targeted exams where dose is matched to clinical indication); or iterative reconstruction. Contrast material: VISI; Contrast volume: 95 ml; Contrast route: INTRAVENOUS (IV); COMPARISON: CTA Chest-Pulmonary Emb [id number] 09/11/2018 1:31 PM RADIATION DOSE METRICS: Total DLP (mGy-cm): 637.61 FINDINGS: Pulmonary arteries: Normal. No pulmonary emboli. Aorta: Unremarkable. No aortic aneurysm. No aortic dissection. Lungs: Centrilobular emphysematous changes. Bibasilar left greater than right airspace infiltrates. Pleural space: Unremarkable. No pneumothorax. No pleural effusion. Heart: Unremarkable. No cardiomegaly. No pericardial effusion. Lymph nodes: Unremarkable. No enlarged lymph nodes. Bones/joints: Unremarkable. No acute fracture. Soft tissues: Unremarkable. CT/CT angio chest PE protcl [id number] IMPRESSION: 1. Negative for pulmonary embolus. 2. Centrilobular emphysematous changes. 3. Bibasilar left greater than right airspace infiltrates. Radiation Dose CTDIVOL = (mGy): DLP = 637.61 (mGy-cm)
[2020-04-11] MEDS: azithromycin 500 MG in sodium chloride 0.9% 250 ML 250 MG IV (00:05)
[2020-04-11] MEDS: iodixanol 320 mg/mL 100mL Btl IV (01:06)
[2020-04-11 01:57] LABS: Basophils % 0.1 %; Hematocrit 41.2 % (42.0-52.0); Hemoglobin 12.9 g/dL (11.7-16.6); Lymphocytes # 0.6 10^3/uL (0.8-4.8); Lymphocytes % 2.9 %; Mean Corpuscular HGB Conc 31.3 g/dL (30.0-36.0); Mean Corpuscular Hemoglobin 30.1 pg (28.0-34.0); Mean Corpuscular Volume 96.3 fL (80-94); Mean Platelet Volume 10.1 fL (7.4-10.4); Monocytes # 0.5 10^3/uL (0.2-0.9); Monocytes % 2.5 %; Neutrophils # 20.29 10^3/uL (1.8-7.7); Neutrophils % 93.7 %; Nucleated Red Blood Cells % 0 %; Platelet Count 212 10^3/cmm (130-400); Red Blood Count 4.28 10^6/uL (4.1-5.3); Red Cell Distribution Width 14.6 % (12.1-15.1); White Blood Count 21.7 10^3/uL (4.0-10.0)
[2020-04-11 02:14] LABS: Anion Gap 11.9 (5-19); Blood Urea Nitrogen 26 mg/dL (8-23); Carbon Dioxide 24 mmol/L (22-29); Chloride 108 mmol/L (98-107); Glucose 202 mg/dL (65-115); Osmolality Calculated 291 mOsm/kg (285-295); Potassium 4.9 mmol/L (3.5-5.1); Sodium 139 mmol/L (136-145)
[2020-04-11 02:17] LABS: Troponin 5 6HR 45.52 ng/L (0-15)
[2020-04-11] MEDS: cefTRIAXone 1,000 MG in sodium chloride 0.9% (plus) 50 ML 100 MG IV (02:18)
[2020-04-11] MEDS: heparin 5,000 unit/mL INJ 1 mL 5000 UNIT SUBCUT (02:19)
[2020-04-11] MEDS: sodium chloride 0.9% 1,000 ML 75 ML IV ×2 (02:45→17:46)
[2020-04-11] MEDS: ipratropium-albuterol 3 mL Neb INHALATION ×3 (08:23→21:50)
[2020-04-11] MEDS: levothyroxine 50 mcg Tablet PO (10:00)
[2020-04-11] MEDS: metoprolol tartrate 25 mg Tablet PO ×2 (10:00→17:44)
[2020-04-11] MEDS: terazosin 5 mg Capsule PO (10:01)
[2020-04-11] MEDS: clopidogrel 75 mg Tablet PO (10:02)
[2020-04-11] MEDS: atorvastatin 40 mg Tablet 10 MG PO (10:02)
[2020-04-11] MEDS: enoxaparin 40 mg/0.4 mL Syringe SUBCUT (10:10)
--- NOTE | 2020-04-11 12:46 | PC.SOCIAL ---
Patient recieved the Beneficiary letter for the [facility]. Signed and placed in the chart.
--- NOTE | 2020-04-11 13:55 | PM.PN ---
Subjective Subjective: Interval history: He reports that he is comfortable currently. Denies shortness of breath on nasal cannula. Denies having a lot of cough. Says no more than usual. Does not remember much from yesterday. Says uses oxygen at home, but is not sure how much. Denies any chest pain or pressure. Says at home lives with daughter and son-in-law who help him out if he needs assistance. Vitals/I&O/Wt Last Vital Signs Temp 97.6 F 04/11/20 11:25 Pulse 112 H 04/11/20 11:25 Resp 28 H 04/11/20 11:25 BP 133/62 04/11/20 11:25 Pulse Ox 94 04/11/20 11:25 04/10/20 04/11/20 04/11/20 22:59 06:59 14:59 Intake Total 500 / 500 1050 / 1550 720 / 720 Output Total 200 / 200 Balance 500 / 500 1050 / 1550 520 / 520 Weight last 48 hrs Weight 72.575 kg Physical Exam Const: COMMON NORMALS: no acute distress and patient oriented x3 GENERAL APPEARANCE: frail appearing HENMT: COMMON NORMALS: oropharynx normal Neck/C-Spine: COMMON NORMALS: no JVD Resp: COMMON NORMALS: normal respiratory effort and clear to auscultation bilaterally AUSCULTATION: clear to auscultation bilaterally and diminished lung sounds (at bases) Cardio: COMMON NORMALS: no JVD, regular rhythm, S1 normal heart sound present, S2 normal heart sound present and No murmurs present (Cardio) RHYTHM: regular rhythm HEART SOUNDS: S1 normal heart sound present and S2 normal heart sound present GI: COMMON NORMALS: Normal to inspection, nondistended, normoactive bowel sounds present, Soft to palpation and non-tender PALPATION: Yes Soft to palpation Extremity: COMMON NORMALS: no joint enlargement and no pedal edema Neuro: COMMON NORMALS: patient oriented x3 and moves all extremities Skin: COMMON NORMALS: no rashes or lesions noted GENERAL SKIN EXAM: no rashes or lesions noted Data : 04/11/20 01:30 04/11/20 01:30 Micro: Microbiology 04/11/20 07:05 Bacterial Antigens - Final Urine,Voided 04/11/20 07:05 Legionella Urinary Antigen - Final Urine,Voided 04/10/20 19:48 Blood Culture - Preliminary Blood SPECIMEN COLLECTED 04/10/20 19:15 Blood Culture - Preliminary Blood SPECIMEN COLLECTED A&P Assessment and plan (1) Community acquired pneumonia: Bibasilar pneumonia. Continue Rocephin, azithromycin. He currently clinically appears stable. He is comfortable on nasal cannula. Denies shortness of breath or significant chest discomfort. No PE noted on CTA. Does have some tachycardia. Will assess additional twelve-lead EKG. With acute hypoxic respiratory failure. Here has been requiring 3.5-3 L oxygen by nasal cannula. At home reportedly used to. COVID antigen negative. Bacterial antigens, Legionella negative. Status: Acute (2) Sepsis: With leukocytosis, 29.7, sinus tachycardia. Status: Acute (3) BPH (benign prostatic hyperplasia): Continue terra Zosyn Status: Acute (4) Constipation: Continue Anders Status: Acute (5) COPD (chronic obstructive pulmonary disease): Status: Acute Additional A&P Information Active smoker: encourage cessation. Attestations Medical Necessity Statement*: Continue admission for assessment management of sepsis, pneumonia, hypoxia. Coding Level of Care Code Acute Babysitter for [facility] Fwd Diagnoses Community acquired pneumonia J18.9 Sepsis A41.9 BPH (benign prostatic hyperplasia) N40.0 Constipation K59.00 COPD (chronic obstructive pulmonary disease) J44.9
--- NOTE | 2020-04-11 14:17 | PC.CHAP ---
Pastoral Care Encounter/Spiritual Assessment Type of Contact [] Declined api architect visit [] Patient/Family/Request visit [] Outpatient visit [] Follow-up visit [] Physician referral [] Code/Alert [X] Routine visit [] Staff referral [] Actively dying [] Patient sleeping [] Family support [] [] Out of room [] Palliative care [] [] Receiving care in room [] Pre-surgical visit [] Trauma [] Long length of stay [] ICU visit [] Other: Relational/Emotional Strength [] Patient feels connected with others/family/visitors/staff [] Distress [] Loneliness/isolation [] Abandonment Spirituality of Patient [] Person of [place] [] Attends Latter-Day of their [place] [] Believes in Prayer [] Reads Bible or Catholic materials [] There are Spiritual issues to be addressed Software Engineering Project Manager Interventions [] Prayer [] Active listening [] Non-anxious presence [] Spiritual/emotional support [] Crisis/trauma care [] Spiritual counseling [] Bereavement support [] Provided bereavement packet [] Provided Bible/devotional materials [] Provided toy/stuffed animal, coloring book to patient or family member [] Provided Communion [] Anointing/[place] [] Salvation [] Completed spiritual assessment [] Other: Impact on Illness or Injury [] Angry [] Fearful [] Anxious [] Often cries [] Exhaustion [] Unable to work [] Unable to attend mormonism [] Unable to walk/stand [] Unable to read [] Unable to drive [] Unable to eat/drink [] Unable to sleep [] Unable to be with family [] Patient intubated [] Other: Summary Time spent with patient
--- NOTE | 2020-04-11 14:35 | PC.NURSE ---
patient states he is feeling weak. appetite poor, what he did eat he said he forced himself to eat. patient has a frequent cough, dry non-productive cough. patient said it just feels like he needs to cough something up and can't. Patient had small formed brown BM. voided urine twice thus this shift. patient states he is not hurting. patient set up in the chair for an hour this morning, but was not able walk just stand and sit.
[2020-04-11] MEDS: docusate sodium 100 mg Capsule PO (22:16)
[2020-04-11] MEDS: diphenhydrAMINE 25 mg Capsule PO (23:22)
[2020-04-11] MEDS: acetaminophen 325 mg Tablet 650 MG PO (23:22)
[2020-04-12] VITALS (14 sets, daily range): BP systolic 135–166; BP diastolic 66–79; PULSE 54–106; RESP 16–20; TEMP 36.6–36.9; O2SAT 91–97
[2020-04-12] MEDS: ipratropium-albuterol 3 mL Neb INHALATION ×4 (03:05→21:41)
[2020-04-12 06:08] LABS: Basophils % 0.4 %; Eosinophils # 0.1 10^3/uL (0.0-0.8); Eosinophils % 0.6 %; Hematocrit 38.4 % (42.0-52.0); Hemoglobin 11.7 g/dL (11.7-16.6); Lymphocytes # 1.7 10^3/uL (0.8-4.8); Lymphocytes % 15.8 %; Mean Corpuscular HGB Conc 30.5 g/dL (30.0-36.0); Mean Corpuscular Hemoglobin 29.2 pg (28.0-34.0); Mean Corpuscular Volume 95.8 fL (80-94); Mean Platelet Volume 10.2 fL (7.4-10.4); Monocytes # 0.7 10^3/uL (0.2-0.9); Monocytes % 6.5 %; Neutrophils # 8.18 10^3/uL (1.8-7.7); Neutrophils % 76.1 %; Nucleated Red Blood Cells % 0 %; Platelet Count 204 10^3/cmm (130-400); Red Blood Count 4.01 10^6/uL (4.1-5.3); Red Cell Distribution Width 14.7 % (12.1-15.1); White Blood Count 10.7 10^3/uL (4.0-10.0)
[2020-04-12 06:30] LABS: Alanine Aminotransferase 14 U/L (0-41); Albumin Level 3.1 g/dL (3.5-5.2); Alkaline Phosphatase 55 IU/L (40-130); Aspartate Amino Transferase 14 U/L (0-40); Blood Urea Nitrogen 23 mg/dL (8-23); Calcium 8.4 mg/dL (8.5-10.5); Carbon Dioxide 25 mmol/L (22-29); Chloride 110 mmol/L (98-107); Creatinine Clr Calc Pharmacy 50.3033; Globulin 2.5 g/dL (1.3-4.6); Glucose 113 mg/dL (65-115); Osmolality Calculated 294 mOsm/kg (285-295); Sodium 143 mmol/L (136-145); Total Bilirubin 0.3 mg/dL (0.15-1.2); Total Protein 5.6 g/dL (6.6-8.7)
--- NOTE | 2020-04-12 08:44 | XR_ITS ---
WS: [id number] Portable AP upright chest, 04/12/2020 Clinical Data: dyspnea Comparison: Portable chest, 04/10/2020. Findings: There is a patchy opacity overlying the surface of the left diaphragm which is increased in last 2 days. This may represent acute pneumonia. The diaphragms are flattened. No nodules, masses or effusions are seen. The heart is normal. The aortic arch and descending aorta show tortuosity. The p ulmonary vascularity is not increased. No pneumothorax is seen. Monitor leads are on the chest wall XR/XR chest 1V portable [id number] Impression: 1. Possible pneumonia in the left lower lobe. 2. Atherosclerosis and hyperinflation.
[2020-04-12] MEDS: metoprolol tartrate 25 mg Tablet PO ×2 (09:00→17:48)
[2020-04-12] MEDS: ALPRAZolam 0.25 mg Tablet 0.125 MG PO (09:17)
[2020-04-12] MEDS: clopidogrel 75 mg Tablet PO (09:18)
[2020-04-12] MEDS: levothyroxine 50 mcg Tablet PO (09:18)
[2020-04-12] MEDS: atorvastatin 40 mg Tablet 10 MG PO (09:18)
[2020-04-12] MEDS: cefTRIAXone 1,000 MG in sodium chloride 0.9% (plus) 50 ML 100 MG IV (09:19)
--- NOTE | 2020-04-12 12:22 | P.PN_ITS ---
Subjective Subjective: Interval history: He feels is not able to get a good breath. Denies chest pain. Vitals/I&O/Wt Last Vital Signs Temp 97.9 F 04/12/20 11:15 Pulse 58 L 04/12/20 11:15 Resp 18 04/12/20 11:15 BP 157/79 04/12/20 11:15 Pulse Ox 96 04/12/20 11:15 04/11/20 04/12/20 04/12/20 22:59 06:59 14:59 Intake Total 1640 / 2360 240 / 240 Output Total 500 / 700 200 / 900 200 / 200 Balance 1140 / 1660 -200 / 1460 40 / 40 Weight last 48 hrs Weight 72.575 kg Physical Exam Const: COMMON NORMALS: no acute distress GENERAL APPEARANCE: anxious and frail appearing HENMT: COMMON NORMALS: oropharynx normal Neck/C-Spine: COMMON NORMALS: no JVD Resp: COMMON NORMALS: normal respiratory effort and clear to auscultation bilaterally AUSCULTATION: clear to auscultation bilaterally and diminished lung sounds Cardio: COMMON NORMALS: no JVD, regular rhythm, S1 normal heart sound present, S2 normal heart sound present and No murmurs present (Cardio) RHYTHM: regular rhythm HEART SOUNDS: S1 normal heart sound present and S2 normal heart sound present GI: COMMON NORMALS: Normal to inspection, nondistended, normoactive bowel sounds present, Soft to palpation and non-tender PALPATION: Yes Soft to palpation Extremity: COMMON NORMALS: no joint enlargement and no pedal edema Neuro: COMMON NORMALS: moves all extremities Skin: COMMON NORMALS: no rashes or lesions noted GENERAL SKIN EXAM: no ilan hes or lesions noted Data : 04/12/20 05:35 04/12/20 05:35 Micro: Microbiology 04/10/20 19:48 Blood Culture - Preliminary Blood NEGATIVE TO DATE 04/10/20 19:15 Blood Culture - Preliminary Blood NEGATIVE TO DATE 04/11/20 07:05 Bacterial Antigens - Final Urine,Voided 04/11/20 07:05 Legionella Urinary Antigen - Final Urine,Voided A&P Assessment and plan (1) COPD (chronic obstructive pulmonary disease): Decreased lung sounds bilatearlly. He feels dyspneic. PNA noted LLL on CXR. No obvious congestive changes. For now IVF DC'd to avoid overload. Due to COPD exacerbation we will add standing breathing treatments, continue to biotics, will give a course of prednisone. Discussed with his son. He states that his father's health has declined significantly over the last year. This includes functional capacity, as he c urrently does not get out of the house anymore, he is very weak, barely gets around in the house and requires significant assistance. 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 Appears to be having progressive dementia. His son is very realistic about his long-term prognosis. His father overall is not doing well. He declines placement to group home facility at this time as he would like his father to be in the comfort of his own home with his family. He does state that his father gets frequently air hunger symptoms. He intermittently gets prednisone, although he is on some maintenance dose every other day of low-dose prednisone. He is aware of the large number of potential side effects associated. They have not seen pulmonology, although he expects that his father's prognosis is so poor, and with his functional capacity diminished, and declining overall health, he has not felt that visit to pulmonology would contribute a lot, and would otherwise rather be more disruptive to his father's peace of mind. At this time if it is possible for his father to have some physical therapy he would like to do so, and do this and home health care is being arranged for him. He does not yet want to proceed with hospice care, although overall knows that his father likely does not have much time left. Status: Acute (2) Community acquired pneumonia: Continue antibiotics. Sepsis appears to be resolving. Currently appears to be at baseline oxygen level, although subjectively is not feeling better. Bibasilar pneumonia. Continue Rocephin, azithromycin. He currently clinically appears stable. He is comfortable on nasal cannula. Denies shortness of breath or significant chest discomfort. No PE noted on CTA. Does have some tachycardia. Will assess additional twelve- lead EKG. With acute hypoxic respiratory failure. Here has been requiring 3.5-3 L oxygen by nasal cannula. At home reportedly used 2. COVID antigen negative. Bacterial antigens, Legionella negative. Status: Acute (3) Sepsis: Resolving. Status: Acute (4) BPH (benign prostatic hyperplasia): Continue terazosyn Status: Acute (5) Constipation: Continue Anders Status: Acute Additional A&P Information Active smoker: encourage cessation. Attestations Medical Necessity Statement*: Continue admission for assessment management of resolving sepsis, community-acquired pneumonia, COPD exacerbation. Coding Level of Care Code Acute Table Runner for [facility] Fwd Diagnoses COPD (chronic obstructive pulmonary disease) J44.9 Community acquired pneumonia J18.9 Sepsis A41.9 BPH (benign prostatic hyperplasia) N40.0 Constipation K59.00
[2020-04-12] MEDS: predniSONE 20 mg Tablet 40 MG PO (12:35)
[2020-04-12] MEDS: azithromycin 250 mg Tablet 500 MG PO (12:35)
[2020-04-12] MEDS: terazosin 5 mg Capsule PO (12:36)
[2020-04-12] MEDS: enoxaparin 40 mg/0.4 mL Syringe SUBCUT (12:39)
[2020-04-12] MEDS: docusate sodium 100 mg Capsule PO (22:00)
[2020-04-13] VITALS (11 sets, daily range): BP systolic 117–163; BP diastolic 68–90; PULSE 58–109; RESP 17–20; TEMP 36.5–36.9; O2SAT 87–98
[2020-04-13] MEDS: ipratropium-albuterol 3 mL Neb INHALATION ×3 (02:14→14:33)
[2020-04-13 05:09] LABS: Basophils % 0.1 %; Hematocrit 36.8 % (42.0-52.0); Hemoglobin 11.5 g/dL (11.7-16.6); Lymphocytes # 0.7 10^3/uL (0.8-4.8); Lymphocytes % 8.5 %; Mean Corpuscular HGB Conc 31.3 g/dL (30.0-36.0); Mean Corpuscular Hemoglobin 29.4 pg (28.0-34.0); Mean Corpuscular Volume 94.1 fL (80-94); Mean Platelet Volume 10.3 fL (7.4-10.4); Monocytes # 0.4 10^3/uL (0.2-0.9); Monocytes % 5.1 %; Neutrophils % 85.5 %; Nucleated Red Blood Cells % 0 %; Platelet Count 213 10^3/cmm (130-400); Red Blood Count 3.91 10^6/uL (4.1-5.3); Red Cell Distribution Width 14.1 % (12.1-15.1); White Blood Count 8.3 10^3/uL (4.0-10.0)
[2020-04-13 06:50] LABS: Alanine Aminotransferase 17 U/L (0-41); Alkaline Phosphatase 59 IU/L (40-130); Anion Gap 12.6 (5-19); Aspartate Amino Transferase 12 U/L (0-40); Blood Urea Nitrogen 19 mg/dL (8-23); Calcium 8.9 mg/dL (8.5-10.5); Carbon Dioxide 25 mmol/L (22-29); Chloride 109 mmol/L (98-107); Globulin 2.8 g/dL (1.3-4.6); Glucose 179 mg/dL (65-115); Osmolality Calculated 295 mOsm/kg (285-295); Potassium 4.6 mmol/L (3.5-5.1); Sodium 142 mmol/L (136-145); Total Bilirubin 0.2 mg/dL (0.15-1.2); Total Protein 5.8 g/dL (6.6-8.7)
--- NOTE | 2020-04-13 08:17 | PC.RESP ---
SMOKING CESSATION AND PULMONARY REHAB INFORMATION SENT TO PATIENT.
[2020-04-13] MEDS: cefTRIAXone 1,000 MG in sodium chloride 0.9% (plus) 50 ML 100 MG IV (08:27)
[2020-04-13] MEDS: enoxaparin 40 mg/0.4 mL Syringe SUBCUT (08:27)
[2020-04-13] MEDS: levothyroxine 50 mcg Tablet PO (08:28)
[2020-04-13] MEDS: predniSONE 20 mg Tablet 40 MG PO (08:28)
[2020-04-13] MEDS: clopidogrel 75 mg Tablet PO (08:28)
[2020-04-13] MEDS: atorvastatin 40 mg Tablet 10 MG PO (08:28)
[2020-04-13] MEDS: terazosin 5 mg Capsule PO (09:15)
[2020-04-13] MEDS: metoprolol tartrate 25 mg Tablet PO (09:16)
[2020-04-13] MEDS: azithromycin 250 mg Tablet 500 MG PO (09:16)
--- NOTE | 2020-04-13 09:30 | PC.SOCIAL ---
IMM update Pg. 2 of updated and given to patient, who verbalized understanding.
--- NOTE | 2020-04-13 13:47 | PM.DCS ---
Discharge Providers Date of Admission: 04/10/20 22:21 Date of Discharge: April 13, 2020 Attending Provider at Admission: Homero Dickey MD Attending Provider at Discharge: Juno Arshad Primary Care Provider: Americo Seo MD Diagnoses at Discharge Discharge Diagnosis (1) COPD (chronic obstructive pulmonary disease): Status: Acute Problem details: 2 L [id number] Underlying severe COPD. Currently do not hear wheezing. Does not appear to be in COPD exacerbation. Continue breathing treatments as needed. 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 Was tested with rapid COVID-19 antigen on presentation which was negative. Rapid flu negative. Was treated with ceftriaxone and azithromycin for community-acquired pneumonia. Blood cultures and urine bacterial antigens were negative. His oxygenation, air entry, and subjective breathing had gradually improved. Today he is feeling much better. Per discussion with his son he reports that his father overall has progressively declined over the last year or so. He is mostly just staying at home currently, not getting out anywhere, is not ambulatory, and has had progressive worsening of dementia with both short-term and long-term memory loss. He realizes that unfortunately prognosis long-term is likely not good. He does note that his father gets episodes of air hunger/anxiety intermittently during which time he feels more short of breath, even though his saturation is in the mid 90s. He states that he knows episodes cautiously uses low-dose alprazolam of 0.12 mg as his father is very sensitive to any higher doses. We had discussed possibly placement to [facility] facility, however, his son would like his father to stay close to him at home in familiar surroundings and close to family. We discussed also possibly involving hospice care, however, at this time his son would still like him to get some physical therapy and would like to hold off on this for now. Please reassess his respiratory condition, discuss goals of care. Encourage smoking cessation. Physical Exam Const: COMMON NORMALS: no acute distress and patient oriented x3 HENMT: COMMON NORMALS: oropharynx normal Neck/C-Spine: COMMON NORMALS: no JVD Resp: COMMON NORMALS: normal respiratory effort and clear to auscultation bilaterally AUSCULTATION: clear to auscultation bilaterally Cardio: COMMON NORMALS: no JVD, regular rhythm, S1 normal heart sound present, S2 normal heart sound present and No murmurs present (Cardio) RHYTHM: regular rhythm HEART SOUNDS: S1 normal heart sound present and S2 normal heart sound present GI: COMMON NORMALS: Normal to inspection, nondistended, normoactive bowel sounds present, Soft to palpation and non-tender PALPATION: Yes Soft to palpation Extremity: COMMON NORMALS: no joint enlargement and no pedal edema Neuro: COMMON NORMALS: patient oriented x3 and moves all extremities Skin: COMMON NORMALS: no rashes or lesions noted GENERAL SKIN EXAM: no rashes or lesions noted Discharge Data Data Completed and Pending: Completed Studies During Hospitalization Category Date Time Status CT angio chest PE protcl [id number] Stat Cat Scan 04/11/20 00:03 Completed XR chest 1V joan ble [id number] Routine Exams 04/12/20 08:44 Completed XR chest 1V joan ble [id number] Stat Exams 04/10/20 18:57 Completed Pending at discharge Category Date Time Status Blood Culture Sta t Lab 04/10/20 19:15 Results Blood Culture Sta t Lab 04/10/20 19:48 Results Complete Blood Co unt w/Auto AM LABS Lab 04/14/20 04:00 Ordered Comprehensive Met abolic Panel AM LA BS Lab 04/14/20 04:00 Ordered Labs from last 24 hours 04/13/20 04/13/20 04:36 04:36 WBC 8.3 RBC 3.91 L Hgb 11.5 L Hct 36.8 L MCV 94.1 H MCH 29.4 MCHC 31.3 RDW 14.1 Plt Count 213 MPV 10.3 Neut % (Auto) 85.5 Lymph % (Auto) 8.5 [place] % (Auto) 5.1 Eos % (Auto) 0.0 Baso % (Auto) 0.1 Neut # (Auto) 7.10 Lymph # (Auto) 0.7 L [place] # (Auto) 0.4 Eos # (Auto) 0.0 Baso # (Auto) 0.0 Nucleated RBC % (a uto) 0 Nucleated RBCs # 0.0 Sodium 142 Potassium 4.6 Chloride 109 H Carbon Dioxide 25 Anion Gap 12.6 BUN 19 Creatinine 1.0 GFR Calculation Not Reportable Glucose 179 H Calculated Osmolal ity 295 Calcium 8.9 Total Bilirubin 0.2 AST 12 ALT 17 Alkaline Phosphata se 59 Total Protein 5.8 L Albumin 3.0 L Globulin 2.8 Vitals: Last Vital Signs Temp 97.7 F 04/13/20 11:24 Pulse 73 04/13/20 11:24 Resp 18 04/13/20 11:24 BP 137/90 04/13/20 11:24 Pulse Ox 97 04/13/20 11:24 Discharge Plan Discharge Patient Disposition: Home Health Service Condition: Stable Prescriptions: New Xanax 0.25 mg tablet 0.125 mg PO BID PRN (Reason: anxiety) Qty: 10 RF: 0 prednisone 20 mg Tablet 40 mg PO DAILY Qty: 7 RF: 0 levofloxacin [Levaquin] 750 mg tablet 750 mg PO DAILY 5 Days RF: 0 Continued albuterol sulfate [Ventolin HFA] 90 mcg/actuation HFA aerosol inhaler 2 puff INHALATION Q4H RF: 0 quinapril 40 mg tablet 40 mg PO BID RF: 0 terazosin 5 mg capsule 5 mg PO DAILY RF: 0 clopidogrel [Plavix] 75 mg tablet 75 mg PO DAILY RF: 0 metoprolol tartrate 25 mg tablet 25 mg PO BID 90 Days Qty: 180 RF: 3 levothyroxine 50 mcg tablet 50 mcg PO DAILY 90 Days Qty: 90 RF: 3 atorvastatin [Lipitor] 10 mg tablet 10 mg PO DAILY Qty: 90 RF: 3 nifedipine 30 mg tablet extended release 30 mg PO DAILY Qty: 90 RF: 3 Colace 100 mg Capsule 100 mg PO BEDTIME RF: 0 Tylenol PM Extra Strength 25-500 mg Tablet 1 tab PO BEDTIME RF: 0 Atrovent HFA 17 mcg/actuation Hfa Aerosol Inhaler See Rx Instructions .ROUTE .COMPLEX RF: 0 Brovana 15 mcg/2 mL Solution For Nebulization See Rx Instructions .ROUTE .COMPLEX RF: 0 budesonide-formoterol See Rx Instructions .ROUTE .COMPLEX RF: 0 Held prednisone 10 mg tablet 10 mg PO BID 20 Days Qty: 40 RF: 2 Hold Instructions: Resume on 04/20/20. Discharge Orders: Discharge Order (Routine); Ordered 04/13/20 Ordered By: Juno Arshad Other Ambulatory Orders: DME: Oxygen (Order) Location: None Selected Ordered By: Juno Arshad Referrals: [facility] [Outside] [facility] ([facility]) [Outside] Discharge Diet: Cardiac Discharge Activity: As per PT/OT instructions and Oxygen as instructed Patient Instructions: COPD, Viral Pneumonia (DC), COPD Stoplight Activity Restrictions/Additional Instructions: Continue oxygen by nasal cannula at 3 L/min. Target saturation 92%. Avoid overly high oxygen saturations. If having symptoms of air hunger/anxiety, cautiously may use a low-dose alprazolam. Avoid overly high doses as this may lead to somnolence, respiratory suppression. Add fiber to diet. Avoid constipation. Please stop smoking. Discharge Attestations Time Spent in Discharge Care*: greater than 30 min Quality Metrics Clinical Quality Measures During this hospital stay, did patient experience: None Coding Level of Care Code Acute Urinalysis Technician for Bernabe Lofton Diagnoses COPD (chronic obstructive pulmonary disease) J44.9 Community acquired pneumonia J18.9 Sepsis A41.9 BPH (benign prostatic hyperplasia) N40.0 Constipation K59.00
== END 2020-04-13 17:14 | disposition home health service (06) | DRG 871 ==
LOC: ER 19:31 → MEDSURG 23:51
PROVIDERS: Emergency Medicine; Physician Assistant; Admitting Provider Internal Medicine; PCP Family Medicine; Visit Provider Internal Medicine
DX: A41.9 Sepsis, unspecified organism (principal); J18.9 Pneumonia, unspecified organism; J96.21 Acute and chronic respiratory failure with hypoxia; J44.0 Chronic obstructive pulmonary disease with (acute) lower respiratory infection; I69.951 Hemiplegia and hemiparesis following unspecified cerebrovascular disease affecting right dominant side; E87.2 Acidosis; Z99.81 Dependence on supplemental oxygen; F17.210 Nicotine dependence, cigarettes, uncomplicated; I25.10 Atherosclerotic heart disease of native coronary artery without angina pectoris; Z95.5 Presence of coronary angioplasty implant and graft; I10 Essential (primary) hypertension; E03.9 Hypothyroidism, unspecified; N40.0 Benign prostatic hyperplasia without lower urinary tract symptoms; G47.33 Obstructive sleep apnea (adult) (pediatric); K59.00 Constipation, unspecified; Z66 Do not resuscitate; F03.90 Unspecified dementia, unspecified severity, without behavioral disturbance, psychotic disturbance, mood disturbance, and anxiety; Z79.51 Long term (current) use of inhaled steroids; Z79.02 Long term (current) use of antithrombotics/antiplatelets
CPT/HCPCS: 12345; 36415; 71045; 71275; 80048; 80053; 81001; 83605; 83880; 84145; 84484; 85025; 85378; 85610; 86140; 86403; 87040; 87426; 87449; 87804; 93005; 94640; 96372; 97110; 97116; 97161; 97530; 99283; J0456; J0696; J1644; J1650; J7030; J7040; J7050; J7512; Q0144; Q9967

== ENCOUNTER 2020-06-18 15:41 | Inpatient (IN) | payer MEDICARE, OTHER, SELFPAY ==
[2020-06-18] VITALS (16 sets, daily range): BP systolic 129–175; BP diastolic 70–107; PULSE 88–118; RESP 16–29; TEMP 36.6; O2SAT 89–98; BMI 23.5
--- NOTE | 2020-06-18 16:02 | W.ED.SOB ---
Documented by User: Nikos Araiza DO 06/23/20 07:27 HPI - SOB/Dyspnea General: Chief Complaint: Shortness of Breath/Dyspnea Stated Complaint: COPD EXACERBATION Time Seen by Provider: 06/18/20 16:02 History of Present Illness: HPI Narrative: 80-year-old male comes in today complaining of difficulty with breathing. He has COPD he usually at home is on 2 L/min he began to get somewhat hypoxic they turned his oxygen up to 5 L/min for a while backed out again he tried various albuterol and did not really seem to improve he has chronic nonproductive cough. He has not had any fever. MD elicited complaint: shortness of breath and cough Pertinent past history: COPD Onset (ago): hour(s) Timing: constant Severity: moderate Exacerbating factors: exertion and coughing Relieving factors: oxygen, rest and bronchodilators Known history of: COPD Associated symptoms: Deny abdominal pain, chest congestion, chest pain, cough, diaphoresis, dizziness, extremity pain, fever(s), hemoptysis, lightheadedness, myalgias, nausea, orthopnea, palpitations, paresthesias, polydipsia, polyuria, rash, sense of impending doom, syncope or vomiting Treatment prior to arrival: oxygen and bronchodilator Review of Systems Const: Denies: fever(s) or diaphoresis ENMT: Denies: throat pain, ear or mastoid pain, nasal discharge or nasal congestion Card: Denies: chest pain, palpitations, lightheadedness, syncope or orthopnea Resp: Denies: hemoptysis or chest congestion GI: Denies: abdominal pain, nausea or vomiting : Denies: flank pain, dysuria, urinary frequency or urinary urgency Musc: Denies: extremity pain Skin/Breast: Denies: rash or pruritus Neuro: Denies: dizziness Endo: Denies: polyuria or polydipsia [facility] ED PFSH: Medical History (Updated 06/22/20 @ 00:00 by ) BPH (benign prostatic hyperplasia) COPD (chronic obstructive pulmonary disease) 2 L [id number] Underlying severe COPD. Currently do not hear wheezing. Does not appear to be in COPD exacerbation. Continue breathing treatments as needed. CVA (cerebral vascular accident) Right-sided residual weakness Edema Enrolled in chronic care management History of carotid artery stenosis Hyperglycemia Hypertension Hypertension Hypothyroidism TAIWO (obstructive sleep apnea) Oxygen dependent Pulmonary fibrosis Surgical History History of coronary artery stent placement History of endarterectomy CEA left-sided History of tonsillectomy Family History Other CAD (coronary artery disease) Stroke Social History Smoking and tobacco status: current every day smoker smokeless tobacco Alcohol intake: never Household members: family Housing: House Physical Exam Const: COMMON NORMALS: no acute distress GENERAL APPEARANCE: cooperative and comfortable ORIENTATION/CONSCIOUSNESS: Yes awake, Yes oriented to person, Yes oriented to place and Yes oriented to time HENMT: COMMON NORMALS: normocephalic, atraumatic and hearing grossly normal bilaterally HEAD & SCALP: normocephalic and atraumatic Eye: COMMON NORMALS: Equal, round and reactive pupils present, EOMs intact bilaterally, conjunctivae normal and no scleral icterus CONJUNCTIVA: Yes conjunctivae normal PUPIL: Yes Equal, round and reactive pupils present Neck/C-Spine: COMMON NORMALS: full ROM, no lymphadenopathy, supple and no JVD Lymph: LYMPHATIC: no lymphadenopathy noted and no lymphedema noted Resp: AUSCULTATION: wheezes Cardio: COMMON NORMALS: no JVD, regular rate, regular rhythm and No murmurs present (Cardio) RATE: regular rate RHYTHM: regular rhythm GI: COMMON NORMALS: Soft to palpation and No hepatosplenomegaly present AUSCULTATION: Yes normoactive bowel sounds PALPATION: Yes Soft to palpation, No Tenderness to palpation present (GI), No Guarding due to palpation present (GI) and Yes No hepatosplenomegaly present Extremity: COMMON NORMALS: normal to inspection, capillary refill normal, no clubbing, cyanosis or edema, no calf tenderness and no pedal edema Neuro: SENSORIUM/ORIENTATION: Yes oriented to person, Yes oriented to place and Yes oriented to time Skin: COMMON NORMALS: no rashes or lesions noted GENERAL SKIN EXAM: no rashes or lesions noted Course Vital Signs: Vital signs: Vital Signs Temperature 97.6 F 06/21/20 18:52 Pulse Rate 98 06/21/20 18:52 Respiratory Rate 20 H 06/21/20 18:52 Blood Pressure 154/62 06/21/20 18:52 Pulse Oximetry 92 06/21/20 18:52 MDM - SOB/Dyspnea MDM Narrative: Medical decision making narrative: Signed out to Dr. Daily at change of shift. Lab Data: Labs: Lab Results 06/18/20 06/18/20 06/18/20 Range/Units 15:35 15:35 17:53 WBC 13.8 H (4.0-10.0) 10^3/ uL RBC 4.66 (4.1-5.3) 10^6/u L Hgb 14.3 (11.7-16.6) g/dL Hct 44.2 (42.0-52.0) % MCV 94.8 H (80-94) fL MCH 30.7 (28.0-34.0) pg MCHC 32.4 (30.0-36.0) g/dL RDW 14.6 (12.1-15.1) % Plt Count 222 (130-400) 10^3/c mm MPV 10.2 (7.4-10.4) fL Neut % (Auto) 92.3 % Lymph % (Auto) 3.2 % [place] % (Auto) 3.1 % Eos % (Auto) 0.0 % Baso % (Auto) 0.2 % Neut # (Auto) 12.78 H (1.8-7.7) 10^3/u L Lymph # (Auto) 0.4 L (0.8-4.8) 10^3/u L [place] # (Auto) 0.4 (0.2-0.9) 10^3/u L Eos # (Auto) 0.0 (0.0-0.8) 10^3/u L Baso # (Auto) 0.0 (0.0-0.1) 10^3/u L Nucleated RBC % (a uto) 0 % Nucleated RBCs # 0.0 /100WBC PT (12.1-14.9) SECO NDS INR (0.8-1.2) Specimen Type Arterial Sample Site Radial, left ABG pH 7.45 (7.35-7.45) ABG pCO2 37.5 (35-45) mmHg ABG pO2 84.2 (80.0-100.0) mmH g ABG HCO3 26.1 H (22-26) mmol/L ABG O2 Saturation 97.7 ABG Base Excess 2.2 H (-2.0-2.0) mmol/ L Van Test Pos A-a O2 Gradient 9.1 (5-10) mmHg Hematocrit 43.2 (42-52) % Hgb O2 Saturation 95.4 (95-100) % Carboxyhemoglobin 1.6 (0.4-20.1) %THgb Methemoglobin 0.7 (0.4-1.5) % Total Hemoglobin 14.1 (14-18) g/dL Ionized Calcium 1.2 (1.1-1.4) mmol/L O2 Delivery Device Nc O2 Liters/Min 2.0 % FiO2 28.0 % Accordion Maker ID glc Sodium 139 141.0 (136-145) mmol/L Potassium 4.0 4.4 (3.5-5.1) mmol/L Chloride 101 (98-107) mmol/L Carbon Dioxide 26 (22-29) mmol/L Anion Gap 16.0 (5-19) BUN 28 H (8-23) mg/dL Creatinine 1.1 (0.7-1.2) mg/dL GFR Calculation Not Reportable Glucose 279 H 268.0 H (65-115) mg/dL Calculated Osmolal ity 304 H (285-295) mOsm/k g Calcium 9.4 (8.5-10.5) mg/dL Phosphorus (2.5-4.5) mg/dL Magnesium (1.7-2.3) mg/dL Total Bilirubin 0.4 (0.15-1.2) mg/dL AST 14 (0-40) U/L ALT 20 (0-41) U/L Alkaline Phosphata se 79 (40-130) IU/L Troponin T Baselin e (0-15) ng/L Troponin T Hi Sens 6Hr (0-15) ng/L Troponin T Hi Sens 6Hr Delta (0-12) ng/L C-Reactive Protein (0.0-4.9) mg/L NT-Pro-B Natriuret Pep (0-450) pg/mL Total Protein 6.4 L (6.6-8.7) g/dL Albumin 3.6 (3.5-5.2) g/dL Globulin 2.8 (1.3-4.6) g/dL Procalcitonin (0-0.5) ng/mL Urine Color (Yellow) Urine Appearance (CLEAR) Urine pH (5-7) Ur Specific Gravit y (1.005-1.030) Urine Protein (Negative) Urine Glucose (UA) (Normal) Urine Ketones (Negative) Urine Blood (Negative) Urine Nitrate (Negative) Urine Bilirubin (Negative) Urine Urobilinogen (Negative) mg/dL Ur Leukocyte Blanca ase (Negative) Urine RBC (0-2) /hpf Urine WBC (0-5) /hpf Ur Squamous Epith Cells (0-5) /hpf Amorphous Sediment Urine Bacteria (NONE) /hpf Urine Mucus /hpf Nasal/Oral COVID-1 9 PCR SARS-CoV-2 Ag (Rap id) (Negative) 06/18/20 06/18/20 06/18/20 Range/Units 18:35 19:43 20:51 WBC (4.0-10.0) 10^3/ uL RBC (4.1-5.3) 10^6/u L Hgb (11.7-16.6) g/dL Hct (42.0-52.0) % MCV (80-94) fL MCH (28.0-34.0) pg MCHC (30.0-36.0) g/dL RDW (12.1-15.1) % Plt Count (130-400) 10^3/c mm MPV (7.4-10.4) fL Neut % (Auto) % Lymph % (Auto) % [place] % (Auto) % Eos % (Auto) % Baso % (Auto) % Neut # (Auto) (1.8-7.7) 10^3/u L Lymph # (Auto) (0.8-4.8) 10^3/u L [place] # (Auto) (0.2-0.9) 10^3/u L Eos # (Auto) (0.0-0.8) 10^3/u L Baso # (Auto) (0.0-0.1) 10^3/u L Nucleated RBC % (a uto) % Nucleated RBCs # /100WBC PT (12.1-14.9) SECO NDS INR (0.8-1.2) Specimen Type Sample Site ABG pH (7.35-7.45) ABG pCO2 (35-45) mmHg ABG pO2 (80.0-100.0) mmH g ABG HCO3 (22-26) mmol/L ABG O2 Saturation ABG Base Excess (-2.0-2.0) mmol/ L Van Test A-a O2 Gradient (5-10) mmHg Hematocrit (42-52) % Hgb O2 Saturation (95-100) % Carboxyhemoglobin (0.4-20.1) %THgb Methemoglobin (0.4-1.5) % Total Hemoglobin (14-18) g/dL Ionized Calcium (1.1-1.4) mmol/L O2 Delivery Device O2 Liters/Min % FiO2 % Accordion Maker ID Sodium (136-145) mmol/L Potassium (3.5-5.1) mmol/L Chloride (98-107) mmol/L Carbon Dioxide (22-29) mmol/L Anion Gap (5-19) BUN (8-23) mg/dL Creatinine (0.7-1.2) mg/dL GFR Calculation Glucose (65-115) mg/dL Calculated Osmolal ity (285-295) mOsm/k g Calcium (8.5-10.5) mg/dL Phosphorus (2.5-4.5) mg/dL Magnesium (1.7-2.3) mg/dL Total Bilirubin (0.15-1.2) mg/dL AST (0-40) U/L ALT (0-41) U/L Alkaline Phosphata se (40-130) IU/L Troponin T Baselin e 48 H (0-15) ng/L Troponin T Hi Sens 6Hr (0-15) ng/L Troponin T Hi Sens 6Hr Delta (0-12) ng/L C-Reactive Protein (0.0-4.9) mg/L NT-Pro-B Natriuret Pep (0-450) pg/mL Total Protein (6.6-8.7) g/dL Albumin (3.5-5.2) g/dL Globulin (1.3-4.6) g/dL Procalcitonin (0-0.5) ng/mL Urine Color Yellow (Yellow) Urine Appearance Clear (CLEAR) Urine pH 5.0 (5-7) Ur Specific Gravit y 1.025 (1.005-1.030) Urine Protein 1+ H (Negative) Urine Glucose (UA) 2+ (Normal) Urine Ketones Negative (Negative) Urine Blood Neg (Negative) Urine Nitrate Negative (Negative) Urine Bilirubin Neg (Negative) Urine Urobilinogen 1 H (Negative) mg/dL Ur Leukocyte Blanca ase Negative (Negative) Urine RBC None (0-2) /hpf Urine WBC None (0-5) /hpf Ur Squamous Epith Cells 0-4 H (0-5) /hpf Amorphous Sediment Not Reportable Urine Bacteria Trace (NONE) /hpf Urine Mucus Trace /hpf Nasal/Oral COVID-1 9 PCR SARS-CoV-2 Ag (Rap id) Negative (Negative) 06/19/20 06/19/20 06/19/20 Range/Units 01:46 01:46 01:46 WBC (4.0-10.0) 10^3/ uL RBC (4.1-5.3) 10^6/u L Hgb (11.7-16.6) g/dL Hct (42.0-52.0) % MCV (80-94) fL MCH (28.0-34.0) pg MCHC (30.0-36.0) g/dL RDW (12.1-15.1) % Plt Count (130-400) 10^3/c mm MPV (7.4-10.4) fL Neut % (Auto) % Lymph % (Auto) % [place] % (Auto) % Eos % (Auto) % Baso % (Auto) % Neut # (Auto) (1.8-7.7) 10^3/u L Lymph # (Auto) (0.8-4.8) 10^3/u L [place] # (Auto) (0.2-0.9) 10^3/u L Eos # (Auto) (0.0-0.8) 10^3/u L Baso # (Auto) (0.0-0.1) 10^3/u L Nucleated RBC % (a uto) % Nucleated RBCs # /100WBC PT 13.00 (12.1-14.9) SECO NDS INR 0.95 (0.8-1.2) Specimen Type Sample Site ABG pH (7.35-7.45) ABG pCO2 (35-45) mmHg ABG pO2 (80.0-100.0) mmH g ABG HCO3 (22-26) mmol/L ABG O2 Saturation ABG Base Excess (-2.0-2.0) mmol/ L Van Test A-a O2 Gradient (5-10) mmHg Hematocrit (42-52) % Hgb O2 Saturation (95-100) % Carboxyhemoglobin (0.4-20.1) %THgb Methemoglobin (0.4-1.5) % Total Hemoglobin (14-18) g/dL Ionized Calcium (1.1-1.4) mmol/L O2 Delivery Device O2 Liters/Min % FiO2 % Accordion Maker ID Sodium (136-145) mmol/L Potassium (3.5-5.1) mmol/L Chloride (98-107) mmol/L Carbon Dioxide (22-29) mmol/L Anion Gap (5-19) BUN (8-23) mg/dL Creatinine (0.7-1.2) mg/dL GFR Calculation Glucose (65-115) mg/dL Calculated Osmolal ity (285-295) mOsm/k g Calcium (8.5-10.5) mg/dL Phosphorus (2.5-4.5) mg/dL Magnesium (1.7-2.3) mg/dL Total Bilirubin (0.15-1.2) mg/dL AST (0-40) U/L ALT (0-41) U/L Alkaline Phosphata se (40-130) IU/L Troponin T Baselin e (0-15) ng/L Troponin T Hi Sens 6Hr 42.80 H (0-15) ng/L Troponin T Hi Sens 6Hr Delta -5.20 L (0-12) ng/L C-Reactive Protein (0.0-4.9) mg/L NT-Pro-B Natriuret Pep 1203 H (0-450) pg/mL Total Protein (6.6-8.7) g/dL Albumin (3.5-5.2) g/dL Globulin (1.3-4.6) g/dL Procalcitonin 0.16 (0-0.5) ng/mL Urine Color (Yellow) Urine Appearance (CLEAR) Urine pH (5-7) Ur Specific Gravit y (1.005-1.030) Urine Protein (Negative) Urine Glucose (UA) (Normal) Urine Ketones (Negative) Urine Blood (Negative) Urine Nitrate (Negative) Urine Bilirubin (Negative) Urine Urobilinogen (Negative) mg/dL Ur Leukocyte Blanca ase (Negative) Urine RBC (0-2) /hpf Urine WBC (0-5) /hpf Ur Squamous Epith Cells (0-5) /hpf Amorphous Sediment Urine Bacteria (NONE) /hpf Urine Mucus /hpf Nasal/Oral COVID-1 9 PCR SARS-CoV-2 Ag (Rap id) (Negative) 06/19/20 06/19/20 06/19/20 Range/Units 01:46 01:46 01:46 WBC 12.2 H (4.0-10.0) 10^3/ uL RBC 4.55 (4.1-5.3) 10^6/u L Hgb 13.9 (11.7-16.6) g/dL Hct 43.4 (42.0-52.0) % MCV 95.4 H (80-94) fL MCH 30.5 (28.0-34.0) pg MCHC 32.0 (30.0-36.0) g/dL RDW 14.2 (12.1-15.1) % Plt Count 217 (130-400) 10^3/c mm MPV 9.9 (7.4-10.4) fL Neut % (Auto) 94.6 % Lymph % (Auto) 3.1 % [place] % (Auto) 1.4 % Eos % (Auto) 0.1 % Baso % (Auto) 0.1 % Neut # (Auto) 11.56 H (1.8-7.7) 10^3/u L Lymph # (Auto) 0.4 L (0.8-4.8) 10^3/u L [place] # (Auto) 0.2 (0.2-0.9) 10^3/u L Eos # (Auto) 0.0 (0.0-0.8) 10^3/u L Baso # (Auto) 0.0 (0.0-0.1) 10^3/u L Nucleated RBC % (a uto) 0 % Nucleated RBCs # 0.0 /100WBC PT (12.1-14.9) SECO NDS INR (0.8-1.2) Specimen Type Sample Site ABG pH (7.35-7.45) ABG pCO2 (35-45) mmHg ABG pO2 (80.0-100.0) mmH g ABG HCO3 (22-26) mmol/L ABG O2 Saturation ABG Base Excess (-2.0-2.0) mmol/ L Van Test A-a O2 Gradient (5-10) mmHg Hematocrit (42-52) % Hgb O2 Saturation (95-100) % Carboxyhemoglobin (0.4-20.1) %THgb Methemoglobin (0.4-1.5) % Total Hemoglobin (14-18) g/dL Ionized Calcium (1.1-1.4) mmol/L O2 Delivery Device O2 Liters/Min % FiO2 % Accordion Maker ID Sodium Cancelled 141 (136-145) mmol/L Potassium Cancelled 4.6 (3.5-5.1) mmol/L Chloride Cancelled 103 (98-107) mmol/L Carbon Dioxide Cancelled 24 (22-29) mmol/L Anion Gap Cancelled 18.6 (5-19) BUN Cancelled 30 H (8-23) mg/dL Creatinine Cancelled 1.0 (0.7-1.2) mg/dL GFR Calculation Cancelled Not Reportable Glucose Cancelled 228 H (65-115) mg/dL Calculated Osmolal ity Cancelled 305 H (285-295) mOsm/k g Calcium Cancelled 9.3 (8.5-10.5) mg/dL Phosphorus 4.0 (2.5-4.5) mg/dL Magnesium 2.2 (1.7-2.3) mg/dL Total Bilirubin 0.4 (0.15-1.2) mg/dL AST 14 (0-40) U/L ALT 19 (0-41) U/L Alkaline Phosphata se 78 (40-130) IU/L Troponin T Baselin e (0-15) ng/L Troponin T Hi Sens 6Hr (0-15) ng/L Troponin T Hi Sens 6Hr Delta (0-12) ng/L C-Reactive Protein 179.6 H (0.0-4.9) mg/L NT-Pro-B Natriuret Pep (0-450) pg/mL Total Protein 6.1 L (6.6-8.7) g/dL Albumin 3.5 (3.5-5.2) g/dL Globulin 2.6 (1.3-4.6) g/dL Procalcitonin (0-0.5) ng/mL Urine Color (Yellow) Urine Appearance (CLEAR) Urine pH (5-7) Ur Specific Gravit y (1.005-1.030) Urine Protein (Negative) Urine Glucose (UA) (Normal) Urine Ketones (Negative) Urine Blood (Negative) Urine Nitrate (Negative) Urine Bilirubin (Negative) Urine Urobilinogen (Negative) mg/dL Ur Leukocyte Blanca ase (Negative) Urine RBC (0-2) /hpf Urine WBC (0-5) /hpf Ur Squamous Epith Cells (0-5) /hpf Amorphous Sediment Urine Bacteria (NONE) /hpf Urine Mucus /hpf Nasal/Oral COVID-1 9 PCR SARS-CoV-2 Ag (Rap id) (Negative) 06/19/20 Range/Units 07:50 WBC (4.0-10.0) 10^3/ uL RBC (4.1-5.3) 10^6/u L Hgb (11.7-16.6) g/dL Hct (42.0-52.0) % MCV (80-94) fL MCH (28.0-34.0) pg MCHC (30.0-36.0) g/dL RDW (12.1-15.1) % Plt Count (130-400) 10^3/c mm MPV (7.4-10.4) fL Neut % (Auto) % Lymph % (Auto) % [place] % (Auto) % Eos % (Auto) % Baso % (Auto) % Neut # (Auto) (1.8-7.7) 10^3/u L Lymph # (Auto) (0.8-4.8) 10^3/u L [place] # (Auto) (0.2-0.9) 10^3/u L Eos # (Auto) (0.0-0.8) 10^3/u L Baso # (Auto) (0.0-0.1) 10^3/u L Nucleated RBC % (a uto) % Nucleated RBCs # /100WBC PT (12.1-14.9) SECO NDS INR (0.8-1.2) Specimen Type Sample Site ABG pH (7.35-7.45) ABG pCO2 (35-45) mmHg ABG pO2 (80.0-100.0) mmH g ABG HCO3 (22-26) mmol/L ABG O2 Saturation ABG Base Excess (-2.0-2.0) mmol/ L Van Test A-a O2 Gradient (5-10) mmHg Hematocrit (42-52) % Hgb O2 Saturation (95-100) % Carboxyhemoglobin (0.4-20.1) %THgb Methemoglobin (0.4-1.5) % Total Hemoglobin (14-18) g/dL Ionized Calcium (1.1-1.4) mmol/L O2 Delivery Device O2 Liters/Min % FiO2 % Accordion Maker ID Sodium (136-145) mmol/L Potassium (3.5-5.1) mmol/L Chloride (98-107) mmol/L Carbon Dioxide (22-29) mmol/L Anion Gap (5-19) BUN (8-23) mg/dL Creatinine (0.7-1.2) mg/dL GFR Calculation Glucose (65-115) mg/dL Calculated Osmolal ity (285-295) mOsm/k g Calcium (8.5-10.5) mg/dL Phosphorus (2.5-4.5) mg/dL Magnesium (1.7-2.3) mg/dL Total Bilirubin (0.15-1.2) mg/dL AST (0-40) U/L ALT (0-41) U/L Alkaline Phosphata se (40-130) IU/L Troponin T Baselin e (0-15) ng/L Troponin T Hi Sens 6Hr (0-15) ng/L Troponin T Hi Sens 6Hr Delta (0-12) ng/L C-Reactive Protein (0.0-4.9) mg/L NT-Pro-B Natriuret Pep (0-450) pg/mL Total Protein (6.6-8.7) g/dL Albumin (3.5-5.2) g/dL Globulin (1.3-4.6) g/dL Procalcitonin (0-0.5) ng/mL Urine Color (Yellow) Urine Appearance (CLEAR) Urine pH (5-7) Ur Specific Gravit y (1.005-1.030) Urine Protein (Negative) Urine Glucose (UA) (Normal) Urine Ketones (Negative) Urine Blood (Negative) Urine Nitrate (Negative) Urine Bilirubin (Negative) Urine Urobilinogen (Negative) mg/dL Ur Leukocyte Blanca ase (Negative) Urine RBC (0-2) /hpf Urine WBC (0-5) /hpf Ur Squamous Epith Cells (0-5) /hpf Amorphous Sediment Urine Bacteria (NONE) /hpf Urine Mucus /hpf Nasal/Oral COVID-1 9 PCR Negative SARS-CoV-2 Ag (Rap id) (Negative) Discharge Plan Discharge Patient Disposition: Placed in Observation Admit Provider: Paolo Joyce Clinical Impression: Acute exacerbation of chronic obstructive airways disease Condition: Stable Referrals: [facility] [Provider Group] - 1 week Americo Seo MD [Primary Care Provider] - 4-7 days (Pneumonia, COPD Please call Dr Seo's office tomorrow and set up and appointment to see Dr Seo within one week. [phone]) Discharge Diet: As Directed and Cardiac Discharge Activity: Increase activity as tolerated and Oxygen as instructed Patient Instructions: COPD, Prednisone (By mouth), Amoxicillin/Clavulanate Potassium (By mouth), COPD Stoplight, Pneumonia Stoplight, Pneumonia - Viral Additional Instructions: Please stop smoking. Continued smoking will lead to continued destruction of your lungs, progression of lung disease, worsening hypoxia, worsening feeling of shortness of breath, in addition to other risks including cardiovascular disease, heart attack, stroke, various cancers, and other complications. Please never smoked anywhere near oxygen due to severe fire hazard, risking severe airway colon and . Continue oxygen 3 L with exertion, target saturation 92%. 4 episodes of anxiety/air hunger/panic use Xanax as needed. Please follow-up with your primary care provider for additional assessment and adjustment of Xanax dose. Follow-up with behavioral health care to assist with management of anxiety. Due to noted penetration of thin liquids to the airway and risk of aspiration, please thicken liquids to honey thick consistency. Maintain strict aspiration precautions. Take small bites. Chew completely. Small sips of water. Maintain chin tuck. Sit upright. Make sure you are completely awake and aware when you are eating or drinking. Complete antibiotic course for aspiration pneumonia. After you complete prednisone taper, resume your usual prednisone dose. After you recover from pneumonia, please discuss with your primary care doctor additional assessment by cardiac stress test to rule out progression of coronary artery disease due to noted mild abnormality of troponin on presentation without acute rise to suggest acute heart attack. In case of any worsening of oxygenation, any episodes of severe chest pain, fainting, or other concerning symptoms, please go to ER. Discharge Date/Time: 06/19/20 00:57 Coding Level of Care Code ED Coil Finisher for Chg Fwd Exam Comprehensive Documented by User: Daisy Aden 06/18/20 21:12 HPI - SOB/Dyspnea General: Chief Complaint: Shortness of Breath/Dyspnea Stated Complaint: COPD EXACERBATION Time Seen by Provider: 06/18/20 16:02 PFSH ED PFSH: Medical History (Updated 06/22/20 @ 00:00 by ) BPH (benign prostatic hyperplasia) COPD (chronic obstructive pulmonary disease) 2 L [id number] Underlying severe COPD. Currently do not hear wheezing. Does not appear to be in COPD exacerbation. Continue breathing treatments as needed. CVA (cerebral vascular accident) Right-sided residual weakness Edema Enrolled in chronic care management History of carotid artery stenosis Hyperglycemia Hypertension Hypertension Hypothyroidism TAIWO (obstructive sleep apnea) Oxygen dependent Pulmonary fibrosis Surgical History History of coronary artery stent placement History of endarterectomy CEA left-sided History of tonsillectomy Family History Other CAD (coronary artery disease) Stroke Social History Smoking and tobacco status: current every day smoker smokeless tobacco Alcohol intake: never Household members: family Housing: House Course Vital Signs: Vital signs: Vital Signs Temperature 97.6 F 06/21/20 18:52 Pulse Rate 98 06/21/20 18:52 Respiratory Rate 20 H 06/21/20 18:52 Blood Pressure 154/62 06/21/20 18:52 Pulse Oximetry 92 11/05/20 18:52 MDM - SOB/Dyspnea MDM Narrative: Medical decision making narrative: 1848 -patient care assumed by me from Dr. Araiza. Please see his history, physical exam and medical decision-making notes. Patient tells me he still has mild shortness of breath. Does not appear as any treatment has been given. We will go ahead and add cardiac markers and EKG to his laboratory work-up as well. 2110 -Mr. Islas is not feeling any better after breathing treatments, steroids and mild hydration. His chest x-ray is clear. There is no evidence of Covid on his rapid test here. He looks like a moderate COPD exacerbation. I believe he will have to come into the hospital as he states that he does not feel up to going home. He has been increasing his oxygen at home which I think is dangerous for him to do. As he is not improved with his lung sounds he still has wheezing after his albuterol treatments I am going to add DuoNeb for now that he is Covid negative and I have reviewed the case with Dr. Joyce agrees to come and evaluate the patient for admission. Lab Data: Labs: Lab Results 06/18/20 06/18/20 06/18/20 Range/Units 15:35 15:35 17:53 WBC 13.8 H (4.0-10.0) 10^3/ uL RBC 4.66 (4.1-5.3) 10^6/u L Hgb 14.3 (11.7-16.6) g/dL Hct 44.2 (42.0-52.0) % MCV 94.8 H (80-94) fL MCH 30.7 (28.0-34.0) pg MCHC 32.4 (30.0-36.0) g/dL RDW 14.6 (12.1-15.1) % Plt Count 222 (130-400) 10^3/c mm MPV 10.2 (7.4-10.4) fL Neut % (Auto) 92.3 % Lymph % (Auto) 3.2 % [place] % (Auto) 3.1 % Eos % (Auto) 0.0 % Baso % (Auto) 0.2 % Neut # (Auto) 12.78 H (1.8-7.7) 10^3/u L Lymph # (Auto) 0.4 L (0.8-4.8) 10^3/u L [place] # (Auto) 0.4 (0.2-0.9) 10^3/u L Eos # (Auto) 0.0 (0.0-0.8) 10^3/u L Baso # (Auto) 0.0 (0.0-0.1) 10^3/u L Nucleated RBC % (a uto) 0 % Nucleated RBCs # 0.0 /100WBC PT (12.1-14.9) SECO NDS INR (0.8-1.2) Specimen Type Arterial Sample Site Radial, left ABG pH 7.45 (7.35-7.45) ABG pCO2 37.5 (35-45) mmHg ABG pO2 84.2 (80.0-100.0) mmH g ABG HCO3 26.1 H (22-26) mmol/L ABG O2 Saturation 97.7 ABG Base Excess 2.2 H (-2.0-2.0) mmol/ L Van Test Pos A-a O2 Gradient 9.1 (5-10) mmHg Hematocrit 43.2 (42-52) % Hgb O2 Saturation 95.4 (95-100) % Carboxyhemoglobin 1.6 (0.4-20.1) %THgb Methemoglobin 0.7 (0.4-1.5) % Total Hemoglobin 14.1 (14-18) g/dL Ionized Calcium 1.2 (1.1-1.4) mmol/L O2 Delivery Device Nc O2 Liters/Min 2.0 % FiO2 28.0 % Accordion Maker ID glc Sodium 139 141.0 (136-145) mmol/L Potassium 4.0 4.4 (3.5-5.1) mmol/L Chloride 101 (98-107) mmol/L Carbon Dioxide 26 (22-29) mmol/L Anion Gap 16.0 (5-19) BUN 28 H (8-23) mg/dL Creatinine 1.1 (0.7-1.2) mg/dL GFR Calculation Not Reportable Glucose 279 H 268.0 H (65-115) mg/dL Calculated Osmolal ity 304 H (285-295) mOsm/k g Calcium 9.4 (8.5-10.5) mg/dL Phosphorus (2.5-4.5) mg/dL Magnesium (1.7-2.3) mg/dL Total Bilirubin 0.4 (0.15-1.2) mg/dL AST 14 (0-40) U/L ALT 20 (0-41) U/L Alkaline Phosphata se 79 (40-130) IU/L Troponin T Baselin e (0-15) ng/L Troponin T Hi Sens 6Hr (0-15) ng/L Troponin T Hi Sens 6Hr Delta (0-12) ng/L C-Reactive Protein (0.0-4.9) mg/L NT-Pro-B Natriuret Pep (0-450) pg/mL Total Protein 6.4 L (6.6-8.7) g/dL Albumin 3.6 (3.5-5.2) g/dL Globulin 2.8 (1.3-4.6) g/dL Procalcitonin (0-0.5) ng/mL Urine Color (Yellow) Urine Appearance (CLEAR) Urine pH (5-7) Ur Specific Gravit y (1.005-1.030) Urine Protein (Negative) Urine Glucose (UA) (Normal) Urine Ketones (Negative) Urine Blood (Negative) Urine Nitrate (Negative) Urine Bilirubin (Negative) Urine Urobilinogen (Negative) mg/dL Ur Leukocyte Blanca ase (Negative) Urine RBC (0-2) /hpf Urine WBC (0-5) /hpf Ur Squamous Epith Cells (0-5) /hpf Amorphous Sediment Urine Bacteria (NONE) /hpf Urine Mucus /hpf Nasal/Oral COVID-1 9 PCR SARS-CoV-2 Ag (Rap id) (Negative) 06/18/20 06/18/20 06/18/20 Range/Units 18:35 19:43 20:51 WBC (4.0-10.0) 10^3/ uL RBC (4.1-5.3) 10^6/u L Hgb (11.7-16.6) g/dL Hct (42.0-52.0) % MCV (80-94) fL MCH (28.0-34.0) pg MCHC (30.0-36.0) g/dL RDW (12.1-15.1) % Plt Count (130-400) 10^3/c mm MPV (7.4-10.4) fL Neut % (Auto) % Lymph % (Auto) % [place] % (Auto) % Eos % (Auto) % Baso % (Auto) % Neut # (Auto) (1.8-7.7) 10^3/u L Lymph # (Auto) (0.8-4.8) 10^3/u L [place] # (Auto) (0.2-0.9) 10^3/u L Eos # (Auto) (0.0-0.8) 10^3/u L Baso # (Auto) (0.0-0.1) 10^3/u L Nucleated RBC % (a uto) % Nucleated RBCs # /100WBC PT (12.1-14.9) SECO NDS INR (0.8-1.2) Specimen Type Sample Site ABG pH (7.35-7.45) ABG pCO2 (35-45) mmHg ABG pO2 (80.0-100.0) mmH g ABG HCO3 (22-26) mmol/L ABG O2 Saturation ABG Base Excess (-2.0-2.0) mmol/ L Van Test A-a O2 Gradient (5-10) mmHg Hematocrit (42-52) % Hgb O2 Saturation (95-100) % Carboxyhemoglobin (0.4-20.1) %THgb Methemoglobin (0.4-1.5) % Total Hemoglobin (14-18) g/dL Ionized Calcium (1.1-1.4) mmol/L O2 Delivery Device O2 Liters/Min % FiO2 % Accordion Maker ID Sodium (136-145) mmol/L Potassium (3.5-5.1) mmol/L Chloride (98-107) mmol/L Carbon Dioxide (22-29) mmol/L Anion Gap (5-19) BUN (8-23) mg/dL Creatinine (0.7-1.2) mg/dL GFR Calculation Glucose (65-115) mg/dL Calculated Osmolal ity (285-295) mOsm/k g Calcium (8.5-10.5) mg/dL Phosphorus (2.5-4.5) mg/dL Magnesium (1.7-2.3) mg/dL Total Bilirubin (0.15-1.2) mg/dL AST (0-40) U/L ALT (0-41) U/L Alkaline Phosphata se (40-130) IU/L Troponin T Baselin e 48 H (0-15) ng/L Troponin T Hi Sens 6Hr (0-15) ng/L Troponin T Hi Sens 6Hr Delta (0-12) ng/L C-Reactive Protein (0.0-4.9) mg/L NT-Pro-B Natriuret Pep (0-450) pg/mL Total Protein (6.6-8.7) g/dL Albumin (3.5-5.2) g/dL Globulin (1.3-4.6) g/dL Procalcitonin (0-0.5) ng/mL Urine Color Yellow (Yellow) Urine Appearance Clear (CLEAR) Urine pH 5.0 (5-7) Ur Specific Gravit y 1.025 (1.005-1.030) Urine Protein 1+ H (Negative) Urine Glucose (UA) 2+ (Normal) Urine Ketones Negative (Negative) Urine Blood Neg (Negative) Urine Nitrate Negative (Negative) Urine Bilirubin Neg (Negative) Urine Urobilinogen 1 H (Negative) mg/dL Ur Leukocyte Blanca ase Negative (Negative) Urine RBC None (0-2) /hpf Urine WBC None (0-5) /hpf Ur Squamous Epith Cells 0-4 H (0-5) /hpf Amorphous Sediment Not Reportable Urine Bacteria Trace (NONE) /hpf Urine Mucus Trace /hpf Nasal/Oral COVID-1 9 PCR SARS-CoV-2 Ag (Rap id) Negative (Negative) 06/19/20 06/19/20 06/19/20 Range/Units 01:46 01:46 01:46 WBC (4.0-10.0) 10^3/ uL RBC (4.1-5.3) 10^6/u L Hgb (11.7-16.6) g/dL Hct (42.0-52.0) % MCV (80-94) fL MCH (28.0-34.0) pg MCHC (30.0-36.0) g/dL RDW (12.1-15.1) % Plt Count (130-400) 10^3/c mm MPV (7.4-10.4) fL Neut % (Auto) % Lymph % (Auto) % [place] % (Auto) % Eos % (Auto) % Baso % (Auto) % Neut # (Auto) (1.8-7.7) 10^3/u L Lymph # (Auto) (0.8-4.8) 10^3/u L [place] # (Auto) (0.2-0.9) 10^3/u L Eos # (Auto) (0.0-0.8) 10^3/u L Baso # (Auto) (0.0-0.1) 10^3/u L Nucleated RBC % (a uto) % Nucleated RBCs # /100WBC PT 13.00 (12.1-14.9) SECO NDS INR 0.95 (0.8-1.2) Specimen Type Sample Site ABG pH (7.35-7.45) ABG pCO2 (35-45) mmHg ABG pO2 (80.0-100.0) mmH g ABG HCO3 (22-26) mmol/L ABG O2 Saturation ABG Base Excess (-2.0-2.0) mmol/ L Van Test A-a O2 Gradient (5-10) mmHg Hematocrit (42-52) % Hgb O2 Saturation (95-100) % Carboxyhemoglobin (0.4-20.1) %THgb Methemoglobin (0.4-1.5) % Total Hemoglobin (14-18) g/dL Ionized Calcium (1.1-1.4) mmol/L O2 Delivery Device O2 Liters/Min % FiO2 % Accordion Maker ID Sodium (136-145) mmol/L Potassium (3.5-5.1) mmol/L Chloride (98-107) mmol/L Carbon Dioxide (22-29) mmol/L Anion Gap (5-19) BUN (8-23) mg/dL Creatinine (0.7-1.2) mg/dL GFR Calculation Glucose (65-115) mg/dL Calculated Osmolal ity (285-295) mOsm/k g Calcium (8.5-10.5) mg/dL Phosphorus (2.5-4.5) mg/dL Magnesium (1.7-2.3) mg/dL Total Bilirubin (0.15-1.2) mg/dL AST (0-40) U/L ALT (0-41) U/L Alkaline Phosphata se (40-130) IU/L Troponin T Baselin e (0-15) ng/L Troponin T Hi Sens 6Hr 42.80 H (0-15) ng/L Troponin T Hi Sens 6Hr Delta -5.20 L (0-12) ng/L C-Reactive Protein (0.0-4.9) mg/L NT-Pro-B Natriuret Pep 1203 H (0-450) pg/mL Total Protein (6.6-8.7) g/dL Albumin (3.5-5.2) g/dL Globulin (1.3-4.6) g/dL Procalcitonin 0.16 (0-0.5) ng/mL Urine Color (Yellow) Urine Appearance (CLEAR) Urine pH (5-7) Ur Specific Gravit y (1.005-1.030) Urine Protein (Negative) Urine Glucose (UA) (Normal) Urine Ketones (Negative) Urine Blood (Negative) Urine Nitrate (Negative) Urine Bilirubin (Negative) Urine Urobilinogen (Negative) mg/dL Ur Leukocyte Blanca ase (Negative) Urine RBC (0-2) /hpf Urine WBC (0-5) /hpf Ur Squamous Epith Cells (0-5) /hpf Amorphous Sediment Urine Bacteria (NONE) /hpf Urine Mucus /hpf Nasal/Oral COVID-1 9 PCR SARS-CoV-2 Ag (Rap id) (Negative) 06/19/20 06/19/20 06/19/20 Range/Units 01:46 01:46 01:46 WBC 12.2 H (4.0-10.0) 10^3/ uL RBC 4.55 (4.1-5.3) 10^6/u L Hgb 13.9 (11.7-16.6) g/dL Hct 43.4 (42.0-52.0) % MCV 95.4 H (80-94) fL MCH 30.5 (28.0-34.0) pg MCHC 32.0 (30.0-36.0) g/dL RDW 14.2 (12.1-15.1) % Plt Count 217 (130-400) 10^3/c mm MPV 9.9 (7.4-10.4) fL Neut % (Auto) 94.6 % Lymph % (Auto) 3.1 % [place] % (Auto) 1.4 % Eos % (Auto) 0.1 % Baso % (Auto) 0.1 % Neut # (Auto) 11.56 H (1.8-7.7) 10^3/u L Lymph # (Auto) 0.4 L (0.8-4.8) 10^3/u L [place] # (Auto) 0.2 (0.2-0.9) 10^3/u L Eos # (Auto) 0.0 (0.0-0.8) 10^3/u L Baso # (Auto) 0.0 (0.0-0.1) 10^3/u L Nucleated RBC % (a uto) 0 % Nucleated RBCs # 0.0 /100WBC PT (12.1-14.9) SECO NDS INR (0.8-1.2) Specimen Type Sample Site ABG pH (7.35-7.45) ABG pCO2 (35-45) mmHg ABG pO2 (80.0-100.0) mmH g ABG HCO3 (22-26) mmol/L ABG O2 Saturation ABG Base Excess (-2.0-2.0) mmol/ L Van Test A-a O2 Gradient (5-10) mmHg Hematocrit (42-52) % Hgb O2 Saturation (95-100) % Carboxyhemoglobin (0.4-20.1) %THgb Methemoglobin (0.4-1.5) % Total Hemoglobin (14-18) g/dL Ionized Calcium (1.1-1.4) mmol/L O2 Delivery Device O2 Liters/Min % FiO2 % Accordion Maker ID Sodium Cancelled 141 (136-145) mmol/L Potassium Cancelled 4.6 (3.5-5.1) mmol/L Chloride Cancelled 103 (98-107) mmol/L Carbon Dioxide Cancelled 24 (22-29) mmol/L Anion Gap Cancelled 18.6 (5-19) BUN Cancelled 30 H (8-23) mg/dL Creatinine Cancelled 1.0 (0.7-1.2) mg/dL GFR Calculation Cancelled Not Reportable Glucose Cancelled 228 H (65-115) mg/dL Calculated Osmolal ity Cancelled 305 H (285-295) mOsm/k g Calcium Cancelled 9.3 (8.5-10.5) mg/dL Phosphorus 4.0 (2.5-4.5) mg/dL Magnesium 2.2 (1.7-2.3) mg/dL Total Bilirubin 0.4 (0.15-1.2) mg/dL AST 14 (0-40) U/L ALT 19 (0-41) U/L Alkaline Phosphata se 78 (40-130) IU/L Troponin T Baselin e (0-15) ng/L Troponin T Hi Sens 6Hr (0-15) ng/L Troponin T Hi Sens 6Hr Delta (0-12) ng/L C-Reactive Protein 179.6 H (0.0-4.9) mg/L NT-Pro-B Natriuret Pep (0-450) pg/mL Total Protein 6.1 L (6.6-8.7) g/dL Albumin 3.5 (3.5-5.2) g/dL Globulin 2.6 (1.3-4.6) g/dL Procalcitonin (0-0.5) ng/mL Urine Color (Yellow) Urine Appearance (CLEAR) Urine pH (5-7) Ur Specific Gravit y (1.005-1.030) Urine Protein (Negative) Urine Glucose (UA) (Normal) Urine Ketones (Negative) Urine Blood (Negative) Urine Nitrate (Negative) Urine Bilirubin (Negative) Urine Urobilinogen (Negative) mg/dL Ur Leukocyte Blanca ase (Negative) Urine RBC (0-2) /hpf Urine WBC (0-5) /hpf Ur Squamous Epith Cells (0-5) /hpf Amorphous Sediment Urine Bacteria (NONE) /hpf Urine Mucus /hpf Nasal/Oral COVID-1 9 PCR SARS-CoV-2 Ag (Rap id) (Negative) 06/19/20 Range/Units 07:50 WBC (4.0-10.0) 10^3/ uL RBC (4.1-5.3) 10^6/u L Hgb (11.7-16.6) g/dL Hct (42.0-52.0) % MCV (80-94) fL MCH (28.0-34.0) pg MCHC (30.0-36.0) g/dL RDW (12.1-15.1) % Plt Count (130-400) 10^3/c mm MPV (7.4-10.4) fL Neut % (Auto) % Lymph % (Auto) % [place] % (Auto) % Eos % (Auto) % Baso % (Auto) % Neut # (Auto) (1.8-7.7) 10^3/u L Lymph # (Auto) (0.8-4.8) 10^3/u L [place] # (Auto) (0.2-0.9) 10^3/u L Eos # (Auto) (0.0-0.8) 10^3/u L Baso # (Auto) (0.0-0.1) 10^3/u L Nucleated RBC % (a uto) % Nucleated RBCs # /100WBC PT (12.1-14.9) SECO NDS INR (0.8-1.2) Specimen Type Sample Site ABG pH (7.35-7.45) ABG pCO2 (35-45) mmHg ABG pO2 (80.0-100.0) mmH g ABG HCO3 (22-26) mmol/L ABG O2 Saturation ABG Base Excess (-2.0-2.0) mmol/ L Van Test A-a O2 Gradient (5-10) mmHg Hematocrit (42-52) % Hgb O2 Saturation (95-100) % Carboxyhemoglobin (0.4-20.1) %THgb Methemoglobin (0.4-1.5) % Total Hemoglobin (14-18) g/dL Ionized Calcium (1.1-1.4) mmol/L O2 Delivery Device O2 Liters/Min % FiO2 % Accordion Maker ID Sodium (136-145) mmol/L Potassium (3.5-5.1) mmol/L Chloride (98-107) mmol/L Carbon Dioxide (22-29) mmol/L Anion Gap (5-19) BUN (8-23) mg/dL Creatinine (0.7-1.2) mg/dL GFR Calculation Glucose (65-115) mg/dL Calculated Osmolal ity (285-295) mOsm/k g Calcium (8.5-10.5) mg/dL Phosphorus (2.5-4.5) mg/dL Magnesium (1.7-2.3) mg/dL Total Bilirubin (0.15-1.2) mg/dL AST (0-40) U/L ALT (0-41) U/L Alkaline Phosphata se (40-130) IU/L Troponin T Baselin e (0-15) ng/L Troponin T Hi Sens 6Hr (0-15) ng/L Troponin T Hi Sens 6Hr Delta (0-12) ng/L C-Reactive Protein (0.0-4.9) mg/L NT-Pro-B Natriuret Pep (0-450) pg/mL Total Protein (6.6-8.7) g/dL Albumin (3.5-5.2) g/dL Globulin (1.3-4.6) g/dL Procalcitonin (0-0.5) ng/mL Urine Color (Yellow) Urine Appearance (CLEAR) Urine pH (5-7) Ur Specific Gravit y (1.005-1.030) Urine Protein (Negative) Urine Glucose (UA) (Normal) Urine Ketones (Negative) Urine Blood (Negative) Urine Nitrate (Negative) Urine Bilirubin (Negative) Urine Urobilinogen (Negative) mg/dL Ur Leukocyte Blanca ase (Negative) Urine RBC (0-2) /hpf Urine WBC (0-5) /hpf Ur Squamous Epith Cells (0-5) /hpf Amorphous Sediment Urine Bacteria (NONE) /hpf Urine Mucus /hpf Nasal/Oral COVID-1 9 PCR Negative SARS-CoV-2 Ag (Rap id) (Negative) EKG Data^: EKG 1: Attestation: I personally reviewed and interpreted this EKG as follows: EKG Interpretation Date: 06/18/20 EKG interpretation time: 19:18 Interpretation: Normal sinus rhythm at 89 beats a minute, right bundle branch block, normal intervals, no acute ST-T wave changes. Unchanged from previous. Discharge Plan Discharge Patient Disposition: Placed in Observation Admit Provider: Paolo Joyce Clinical Impression: Acute exacerbation of chronic obstructive airways disease Condition: Stable Referrals: [facility] [Provider Group] - 1 week Americo Seo MD [Primary Care Provider] - 4-7 days (Pneumonia, COPD Please call Dr Seo's office tomorrow and set up and appointment to see Dr Seo within one week. [phone]) Discharge Diet: As Directed and Cardiac Discharge Activity: Increase activity as tolerated and Oxygen as instructed Patient Instructions: COPD, Prednisone (By mouth), Amoxicillin/Clavulanate Potassium (By mouth), COPD Stoplight, Pneumonia Stoplight, Pneumonia - Viral Additional Instructions: Please stop smoking. Continued smoking will lead to continued destruction of your lungs, progression of lung disease, worsening hypoxia, worsening feeling of shortness of breath, in addition to other risks including cardiovascular disease, heart attack, stroke, various cancers, and other complications. Please never smoked anywhere near oxygen due to severe fire hazard, risking severe airway colon and . Continue oxygen 3 L with exertion, target saturation 92%. 4 episodes of anxiety/air hunger/panic use Xanax as needed. Please follow-up with your primary care provider for additional assessment and adjustment of Xanax dose. Follow-up with behavioral health care to assist with management of anxiety. Due to noted penetration of thin liquids to the airway and risk of aspiration, please thicken liquids to honey thick consistency. Maintain strict aspiration precautions. Take small bites. Chew completely. Small sips of water. Maintain chin tuck. Sit upright. Make sure you are completely awake and aware when you are eating or drinking. Complete antibiotic course for aspiration pneumonia. After you complete prednisone taper, resume your usual prednisone dose. After you recover from pneumonia, please discuss with your primary care doctor additional assessment by cardiac stress test to rule out progression of coronary artery disease due to noted mild abnormality of troponin on presentation without acute rise to suggest acute heart attack. In case of any worsening of oxygenation, any episodes of severe chest pain, fainting, or other concerning symptoms, please go to ER. Discharge Date/Time: 06/19/20 00:57 Coding Level of Care Code ED Coil Finisher for Bernabe Fwd Exam Comprehensive
--- NOTE | 2020-06-18 16:03 | XRR_ITS ---
PROCEDURE INFORMATION: Exam: XR Chest, 1 View Exam date and time: 06/18/2020 4:04 PM Age: 80 years old Clinical indication: Cough and dyspnea; Additional info: Dyspnea/cough TECHNIQUE: Imaging protocol: XR of the chest Views: 1 view. COMPARISON: CR XR chest 1V portable [id number] 04/12/2020 8:55 AM FINDINGS: Lungs: There is unchanged severe hyperinflation with interstitial fibrosis and probable linear scar in the right lung. No lobar consolidation. No vascular congestion or CHF. Pleural space: Unremarkable. No pleural effusion. No pneumothorax. Heart/Mediastinum: Unremarkable. No cardiomegaly. Bones/joints: No acute abnormality. XR/XR chest 1V portable [id number] IMPRESSION: Unchanged exam with severe COPD and fibrosis. No active pulmonary disease.
--- NOTE | 2020-06-18 16:03 | ECG_ITS ---
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: : 1940 Requested By: Nikos Martins Order Number: [id number] Reading MD: CYNDIE MACHADO Measurements Intervals [place] Rate: 104 P: 26 PA: 152 QRS: 66 QRSD: 129 T: -35 QT: 359 QTc: 474 Interpretive Statements SINUS TACHYCARDIA MODERATE INTRAVENTRICULAR CONDUCTION DELAY [110+ ms QRS DURATION] ST DEVIATION AND MODERATE T-WAVE ABNORMALITY, CONSIDER INFERIOR ISCHEMIA [-0.1+ mV T WAVE IN II/aVF] Compared to ECG 04/10/2020 19:48:12 Intraventricular conduction delay now present T-wave abnormality now present Possible ischemia now present Myocardial infarct finding no longer present Electronically Signed On 06-18-2020 20:14:16 ACCESS SPEC by CYNDIE MACHADO [id number]
[2020-06-18 17:16] LABS: Basophils % 0.2 %; Hematocrit 44.2 % (42.0-52.0); Hemoglobin 14.3 g/dL (11.7-16.6); Lymphocytes # 0.4 10^3/uL (0.8-4.8); Lymphocytes % 3.2 %; Mean Corpuscular HGB Conc 32.4 g/dL (30.0-36.0); Mean Corpuscular Hemoglobin 30.7 pg (28.0-34.0); Mean Corpuscular Volume 94.8 fL (80-94); Mean Platelet Volume 10.2 fL (7.4-10.4); Monocytes # 0.4 10^3/uL (0.2-0.9); Monocytes % 3.1 %; Neutrophils # 12.78 10^3/uL (1.8-7.7); Neutrophils % 92.3 %; Nucleated Red Blood Cells % 0 %; Platelet Count 222 10^3/cmm (130-400); Red Blood Count 4.66 10^6/uL (4.1-5.3); Red Cell Distribution Width 14.6 % (12.1-15.1); White Blood Count 13.8 10^3/uL (4.0-10.0)
[2020-06-18 17:26] LABS: Alanine Aminotransferase 20 U/L (0-41); Albumin Level 3.6 g/dL (3.5-5.2); Alkaline Phosphatase 79 IU/L (40-130); Aspartate Amino Transferase 14 U/L (0-40); Blood Urea Nitrogen 28 mg/dL (8-23); Calcium 9.4 mg/dL (8.5-10.5); Carbon Dioxide 26 mmol/L (22-29); Chloride 101 mmol/L (98-107); Globulin 2.8 g/dL (1.3-4.6); Glucose 279 mg/dL (65-115); Osmolality Calculated 304 mOsm/kg (285-295); Sodium 139 mmol/L (136-145); Total Bilirubin 0.4 mg/dL (0.15-1.2); Total Protein 6.4 g/dL (6.6-8.7)
[2020-06-18 18:03] LABS: ABG PCO2 37.5 mmHg (35-45); ABG PH Result 7.45 (7.35-7.45); Alveolar-Arterial Oxygen Gradi 9.1 mmHg (5-10); Arterial Blood Gas Hematocrit 43.2 % (42-52); Base Excess ABG 2.2 mmol/L (-2.0-2.0); Blood Gas Allen Test Pos; Blood Gas Operator Identificat glc; Blood Gas Sample Site Radial, left; Blood Gas Sample Type Arterial; Carboxyhemoglobin 1.6 %THgb (0.4-20.1); HCO3 ABG 26.1 mmol/L (22-26); HGB O2 Sat 95.4 % (95-100); Ionized Calcium Level - ABG 1.2 mmol/L (1.1-1.4); Methemoglobin 0.7 % (0.4-1.5); Oxygen Device NC; Oxygen Saturation ABG 97.7; PO2 ABG 84.2 mmHg (80.0-100.0); Potassium Level - ABG 4.4 mmol/L (3.5-5.0); Total Hemoglobin 14.1 g/dL (14-18)
--- NOTE | 2020-06-18 18:34 | ECG_ITS ---
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 Measurements Intervals [place] Rate: 89 P: 46 MD: 159 QRS: 63 QRSD: 128 T: 49 QT: 387 QTc: 473 Interpretive Statements SINUS RHYTHM POSSIBLE RIGHT VENTRICULAR CONDUCTION DELAY [RSR (QR) IN V1/V2] Compared to ECG 06/18/2020 16:29:27 Sinus tachycardia no longer present Intraventricular conduction delay no longer present T-wave abnormality no longer present Possible ischemia no longer present Electronically Signed On 06-19-2020 20:10:45 SOCIAL WORK THERAPIST by Magaly Godinez M.D. [id number]
[2020-06-18] MEDS: dexamethasone 4 mg/mL INJ 10 MG IVP (19:11)
[2020-06-18] MEDS: dexamethasone 10 mg/mL INJ IVP (19:11)
[2020-06-18 20:11] LABS: SARS Covid-2 Antigen Negative (Negative)
[2020-06-18 20:14] LABS: Troponin(5th) Baseline 48 ng/L (0-15)
[2020-06-18] MEDS: doxycycline 100 mg Tablet 200 MG PO (21:15)
[2020-06-18] MEDS: ipratropium-albuterol 3 mL Neb 9 ML INHALATION (21:37)
[2020-06-18 21:38] LABS: Add Urine Microscopic? YES; Bilirubin Urine Neg (Negative); Blood Urine Neg (Negative); Glucose Urine UA 2+ (Normal); Ketones Urine Negative (Negative); Leukocyte Esterase Urine Negative (Negative); Nitrate Urine Negative (Negative); Protein Urine 1+ (Negative); Specific Gravity, Urine 1.025 (1.005-1.030); Urine Appearance Clear (CLEAR); Urine Color Yellow (Yellow); Urobilinogen Urine 1 mg/dL (Negative)
[2020-06-18 21:39] LABS: Add Urine Culture? No; Bacteria Urine TRACE /hpf; Mucus Urine TRACE /hpf; Squamous Epithelial Cell Urine 0-4 /hpf (0-5)
--- NOTE | 2020-06-18 22:37 | PM.HP ---
Providers/Chief Complaint Primary Care Provider: Americo Seo MD Chief Complaint: COPE EXACERBATION History of Present Illness Santiago Islas is a 80 year old male with a past medical history of COPD, 2 L oxygen dependent, chronic smoker, CAD status post stenting, hypertension, hypothyroidism, coronary artery disease, status post left carotid endarterectomy, past history of CVA, residual right-sided weakness, dementia who presents [facility] due to complaints of shortness of breath and weakness. Patient tells me that he does not know why he is here, after multiple redirections, he is able to tell me that his been feeling more short of breath, has a nonproductive cough, no fevers, no chills, known exposure to COVID-19, he lives with his son and his , no sick contacts. Denies a history of choking. Patient states that now and then with the shortness of breath he developed anterior chest pain, sharp pain, nonradiating, no lightheadedness, dizziness, no nausea, no vomiting Review of Systems Const: Reports: fatigue and malaise; Denies: fever(s) or chills Eyes: Denies: change in vision or blurry vision ENMT: Denies: nasal congestion Resp: Reports: dyspnea and non-productive cough; Denies: productive cough or wheezing GI: Denies: abdominal pain, nausea, vomiting, hematemesis, diarrhea, constipation, hematochezia or melena : Denies: flank pain, difficulty urinating, dysuria or urinary frequency Musc: Denies: neck pain or back pain Skin/Breast: Denies: rash Neuro: Denies: headache(s), dizziness or vertigo Psych: Denies: anxiety or depression Endo: Denies: polyuria or polydipsia Medications/Allergies Home Medications Medication Instructions Recorded Confirmed Last Taken Type metoprolol tartrate 25 mg tablet 25 mg PO BID 90 Days #180 tab 09/13/19 06/18/20 06/18/20 Rx levothyroxine 50 mcg tablet 50 mcg PO DAILY 90 Days #90 tab 10/17/19 06/18/20 06/18/20 Rx albuterol sulfate 90 mcg/actuation 2 puff INHALATION Q4H gm 11/07/19 06/18/20 06/18/20 History aerosol inhaler clopidogrel 75 mg tablet 75 mg PO DAILY 11/07/19 06/18/20 06/18/20 History quinapril 40 mg tablet 40 mg PO BID 11/07/19 06/18/20 06/18/20 History atorvastatin 10 mg tablet 10 mg PO DAILY #90 tab 02/22/20 06/18/20 06/18/20 Rx nifedipine 30 mg tablet,extended 30 mg PO DAILY #90 tab 03/26/20 06/18/20 06/18/20 Rx release Atrovent HFA See Rx Instructions .ROUTE .COMPLEX 04/10/20 06/18/20 06/18/20 History Brovana See Rx Instructions .ROUTE .COMPLEX 04/10/20 06/18/20 06/18/20 History budesonide-formoterol See Rx Instructions .ROUTE .COMPLEX 04/10/20 06/18/20 06/18/20 History diphenhydramine-acetaminophen 1 tab PO BEDTIME 04/10/20 06/18/20 06/17/20 History [Tylenol PM Extra Strength] docusate sodium [Colace] 100 mg PO BEDTIME 04/10/20 06/18/20 06/17/20 History tamsulosin 0.4 mg capsule 0.4 mg PO DAILY #90 cap 05/08/20 06/18/20 06/18/20 Rx alprazolam 0.5 mg tablet 0.5 mg PO TID PRN #70 tab 06/18/20 06/18/20 06/18/20 Rx prednisone 10 mg tablet 10 mg PO BID #60 tab 06/18/20 06/18/20 06/18/20 Rx Allergies Allergy/AdvReac Type Severity Reaction Status Date / Time hydromorphone Allergy unverified Verified 04/20/20 08:33 meperidine Allergy unverified Verified 04/20/20 08:33 nalbuphine Allergy unverified Verified 04/20/20 08:33 PFSH Acute PFSH: Medical History BPH (benign prostatic hyperplasia) COPD (chronic obstructive pulmonary disease) 2 L [id number] Underlying severe COPD. Currently do not hear wheezing. Does not appear to be in COPD exacerbation. Continue breathing treatments as needed. CVA (cerebral vascular accident) Right-sided residual weakness Edema Enrolled in chronic care management History of carotid artery stenosis Hyperglycemia Hypertension Hypertension Hypothyroidism TAIWO (obstructive sleep apnea) Oxygen dependent Surgical History History of coronary artery stent placement History of endarterectomy CEA left-sided History of tonsillectomy Family History Other CAD (coronary artery disease) Stroke Social History Smoking and tobacco status: current every day smoker smokeless tobacco Alcohol intake: never Household members: family Housing: House Vitals/I&O/Wt Last Vital Signs Temp 97.9 F 06/18/20 15:50 Pulse 99 06/18/20 21:37 Resp 16 06/18/20 21:37 BP 141/77 06/18/20 20:30 Pulse Ox 91 06/18/20 21:37 Weight last 48 hrs Weight 68.039 kg Physical Exam Const: COMMON NORMALS: no acute distress and patient oriented x3 GENERAL APPEARANCE: cooperative and comfortable HENMT: COMMON NORMALS: normocephalic HEAD & SCALP: normocephalic Eye: COMMON NORMALS: Equal, round and reactive pupils present GENERAL EYE: appearance normal, both eyes and all related structures PUPIL: Yes Equal, round and reactive pupils present Neck/C-Spine: COMMON NORMALS: full ROM, no lymphadenopathy, no JVD and Thyroid normal THYROID: Thyroid normal Lymph: LYMPHATIC: no lymphadenopathy noted Resp: COMMON NORMALS: normal respiratory effort, No retractions, No use of accessory muscles and clear to auscultation bilaterally AUSCULTATION: wheezes Cardio: COMMON NORMALS: no JVD, regular rate, regular rhythm, S1 normal heart sound present, S2 normal heart sound present, No gallops present (Cardio), No clicks present (Cardio) and No murmurs present (Cardio) RATE: regular rate RHYTHM: regular rhythm HEART SOUNDS: S1 normal heart sound present and S2 normal heart sound present GI: COMMON NORMALS: Normal to inspection, nondistended, normoactive bowel sounds present, Soft to palpation, non-tender and No hepatosplenomegaly present PALPATION: Yes Soft to palpation and Yes No hepatosplenomegaly present Extremity: COMMON NORMALS: normal to inspection, full ROM and no pedal edema Neuro: COMMON NORMALS: patient oriented x3, CN's II-XII intact bilaterally, moves all extremities and no focal motor deficits Psych: COMMON NORMALS: mental status grossly normal, Normal thought process present and cooperative THOUGHT PROCESS: Normal thought process present Data : 06/18/20 15:35 06/18/20 15:35 A&P Assessment and plan (1) Acute exacerbation of chronic obstructive airways disease: -Likely secondary to recurrent aspiration pneumonia, COPD -I reviewed patient CT angiogram in March, he does have a dense left lower lobe consolidation, consistent with aspiration, given his dementia, recurrent exacerbations, highly suspicious of recurrent aspiration pneumonia -In addition patient has radiographic features of pulmonary fibrosis, no known history? PLAN: -Admit to general medical floors, Covid precautions, rapid negative -Continue Solu-Medrol -Unasyn for antibiotic coverage -Advair, Spiriva, albuterol -Oxygen therapy -Monitor clinical status -Patient is DNR/DNI -Lovenox for DVT prophylaxis Status: Acute (2) NSTEMI (non-ST elevated myocardial infarction): -Complaints of chest pain, with shortness of breath -Has a history of CAD status post stenting, on Plavix -Baseline troponin 48 -No active chest pain PLAN: -Admit to general medical floors -Serial troponins, serial EKGs, monitor for chest pain -Continue Plavix and statin -Continue telemetry monitoring -Order cardiac echocardiogram Status: Acute (3) Chest pain: Status: Acute (4) Aspiration pneumonia: Status: Acute (5) Pulmonary fibrosis: Status: Acute (6) COPD (chronic obstructive pulmonary disease): Status: Acute Qualifiers: COPD type: chronic bronchitis Chronic bronchitis type: simple Qualified Code(s): J41.0 - Simple chronic bronchitis (7) BPH (benign prostatic hyperplasia): Status: Acute Qualifiers: Lower urinary tract symptom presence: symptoms present Lower urinary tract symptom detail: straining on urination Qualified Code(s): N40.1 - Benign prostatic hyperplasia with lower urinary tract symptoms; R39.16 - Straining to void (8) TAIWO (obstructive sleep apnea): Status: Acute (9) Hypothyroidism: Status: Acute (10) Hypertension: Status: Acute Attestations Medical Necessity Statement*: Patient requires hospitalization outpatient with observation for COPD exacerbation, recurrent aspiration pneumonia, pulmonary fibrosis, chest pain, elevated troponin Coding Level of Care Code Acute [employer] for [employer] Fwd Diagnoses Acute exacerbation of chronic obstructive airways disease J44.1 NSTEMI (non-ST elevated myocardial infarction) I21.4 Chest pain R07.9 Aspiration pneumonia J69.0 Pulmonary fibrosis J84.10 COPD (chronic obstructive pulmonary disease) J41.0 COPD type: chronic bronchitis Chronic bronchitis type: simple BPH (benign prostatic hyperplasia) N40.1; R39.16 Lower urinary tract symptom presence: symptoms present Lower urinary tract symptom detail: straining on urination TAIWO (obstructive sleep apnea) G47.33 Hypothyroidism E03.9 Hypertension I10
[2020-06-19] VITALS (20 sets, daily range): BP systolic 134–253; BP diastolic 69–138; PULSE 66–113; RESP 16–24; TEMP 36.3–36.9; O2SAT 94–97
[2020-06-19] MEDS: sodium chloride 0.9% 1,000 ML 100 ML IV ×3 (02:10→23:42)
[2020-06-19 02:28] LABS: Basophils % 0.1 %; Eosinophils % 0.1 %; Hematocrit 43.4 % (42.0-52.0); Hemoglobin 13.9 g/dL (11.7-16.6); Lymphocytes # 0.4 10^3/uL (0.8-4.8); Lymphocytes % 3.1 %; Mean Corpuscular Hemoglobin 30.5 pg (28.0-34.0); Mean Corpuscular Volume 95.4 fL (80-94); Mean Platelet Volume 9.9 fL (7.4-10.4); Monocytes # 0.2 10^3/uL (0.2-0.9); Monocytes % 1.4 %; Neutrophils # 11.56 10^3/uL (1.8-7.7); Neutrophils % 94.6 %; Nucleated Red Blood Cells % 0 %; Platelet Count 217 10^3/cmm (130-400); Red Blood Count 4.55 10^6/uL (4.1-5.3); Red Cell Distribution Width 14.2 % (12.1-15.1); White Blood Count 12.2 10^3/uL (4.0-10.0)
[2020-06-19 02:29] LABS: INR 0.95 (0.8-1.2)
[2020-06-19] MEDS: albuterol 8 gm MDI 2 PUFF INHALATION ×6 (02:32→23:42)
[2020-06-19] MEDS: ampicillin-sulbactam 3 GM in sodium chloride 0.9% (plus) 50 ML IV ×4 (02:47→22:39)
[2020-06-19 03:02] LABS: Alanine Aminotransferase 19 U/L (0-41); Albumin Level 3.5 g/dL (3.5-5.2); Alkaline Phosphatase 78 IU/L (40-130); Anion Gap 18.6 (5-19); Aspartate Amino Transferase 14 U/L (0-40); Blood Urea Nitrogen 30 mg/dL (8-23); C Reactive Protein 179.6 mg/L (0.0-4.9); Calcium 9.3 mg/dL (8.5-10.5); Carbon Dioxide 24 mmol/L (22-29); Chloride 103 mmol/L (98-107); Globulin 2.6 g/dL (1.3-4.6); Glucose 228 mg/dL (65-115); Magnesium 2.2 mg/dL (1.7-2.3); Osmolality Calculated 305 mOsm/kg (285-295); Potassium 4.6 mmol/L (3.5-5.1); Sodium 141 mmol/L (136-145); Total Bilirubin 0.4 mg/dL (0.15-1.2); Total Protein 6.1 g/dL (6.6-8.7)
[2020-06-19 03:08] LABS: NT Pro B Type Natriuretic Pept 1203 pg/mL (0-450); Procalcitonin 0.16 ng/mL (0-0.5)
--- NOTE | 2020-06-19 04:34 | ECG_ITS ---
[facility] Test Date: 2020-06-19 Pat Name: Santiago Islas Department: Room: 272 Gender: Male Regulatory Affairs Analyst: : 1940 Requested By: Paolo Joyce Order Number: [id number] Radha MD: Magaly Godinez M.D. Measurements Intervals [place] Rate: 103 P: 49 [place]: 181 QRS: 53 QRSD: 136 T: 47 QT: 385 QTc: 504 Interpretive Statements SINUS TACHYCARDIA INTRAVENTRICULAR CONDUCTION DELAY [130+ ms QRS DURATION] POSSIBLE INFERIOR MYOCARDIAL INFARCTION [30 ms Q WAVE IN II/aVF], PROBABLY OLD Compared to ECG 06/18/2020 19:18:54 Intraventricular conduction delay now present Myocardial infarct finding now present Sinus rhythm no longer present Electronically Signed On 06-19-2020 20:13:09 JUDGE'S CLERK by Magaly Godinez M.D. [id number]
[2020-06-19] MEDS: labetalol 5 mg/mL SDV 20mL 20 MG IVP (04:49)
[2020-06-19] MEDS: lisinopril 20 mg Tablet 40 MG PO ×2 (05:30→18:23)
[2020-06-19] MEDS: metoprolol tartrate 25 mg Tablet PO ×2 (05:30→18:23)
--- NOTE | 2020-06-19 05:45 | PC.NURSE ---
Physician Notification Phoned Dr. Joyce to update on patient's persistent hypertension after giving 40mg of labetalol IVP. BP 190/120 HR 101. Order received to administer scheduled metoprolol 25mg and lisinopril 40mg now instead of 0900.
--- NOTE | 2020-06-19 06:02 | PC.NURSE ---
Physician Notification Patient hypertensive upon arrival to floor from ED. BP increasing over time. Notified Dr. Joyce by phone of patients BP 209/137 HR 112. Orders received for EKG and Labetalol 40mg IVP x 1.
--- NOTE | 2020-06-19 06:20 | PC.NURSE ---
Physician Notification Phoned Dr. Joyce to notify of patient continuing to report SOB. O2 is stable, lung sounds diminished. Order received for Lasix 40mg IVP x 1 Insert pruett catheter.
[2020-06-19] MEDS: FUROsemide 10 mg/mL SDV 4mL 40 MG IVP (06:28)
[2020-06-19] MEDS: atorvastatin 40 mg Tablet 20 MG PO (08:21)
[2020-06-19] MEDS: levothyroxine 50 mcg Tablet PO (08:21)
[2020-06-19] MEDS: NIFEdipine ER (24 hr) 30 mg Tablet PO (08:22)
[2020-06-19] MEDS: ALPRAZolam 0.5 mg Tablet PO ×2 (08:22→19:23)
[2020-06-19] MEDS: clopidogrel 75 mg Tablet PO (08:22)
[2020-06-19] MEDS: tamsulosin 0.4 mg Capsule PO (08:22)
--- NOTE | 2020-06-19 09:47 | NUR.SHIFT ---
Neurological-- Pt answers questions appropriately but has intermittent confusion requiring frequent redirection and reminders.
--- NOTE | 2020-06-19 10:00 | USCV_ITS ---
Santiago Islas Age: 80 Gender: M : 1940 Exam Date: 06/19/2020 12:20 Ordering Phys: Paolo oJyce MD Technologist: Mio Cruz Exam Location: [place] Indication: sob BP: 128 / 76 HR: 86 Rhythm: Sinus Technical Quality: Very technically difficult study MEASUREMENTS (Male / Female) Normal Values DOPPLER AV Peak Velocity 97.0 cm/s LVOT Peak Velocity 58.0 cm/s MV Area PHT 5.4 cm squared Mitral E to A Ratio 2.4 MV E' Velocity 124.0 cm/s FINDINGS Left Ventricle Possibly normal LV size with a slightly diminished ejection fraction of 50%. Mild diffuse hypokinesia of the inferior wall segment. It is a suboptimal quality because of the poor ultrasonic window. Right Ventricle Could not be visualized well Right Atrium Could not be visualized well Left Atrium Possibly of normal size Mitral Valve Moderate mitral annular calcification Aortic Valve Could not be visualized well Tricuspid Valve Could not be visualized well Pulmonic Valve . Pulmonic valve not well visualized. Pericardium No pericardial effusion. Aorta Aorta not well visualized. CONCLUSIONS Possibly normal LV size with a slightly diminished ejection fraction of 50%. The inferior wall appears to have mild diffuse hypokinesia . Technically very difficult study because of the poor ultrasonic window There is no pericardial effusion. Dr Magaly Godinez MD [facility] (Electronically Signed) Final Date: 19 June 2020 18:19 S
--- NOTE | 2020-06-19 14:37 | PC.RESP ---
Smoking Cessation and Pulmonary Rehab information packets sent to patient.
--- NOTE | 2020-06-19 19:30 | P.PN_ITS ---
Subjective Subjective: Interval history: He reports he is doing a little bit better. He is coughing. He is not a good historian. Thinks that he is perhaps in 2-3 L of oxygen at home. Vitals/I&O/Wt Last Vital Signs Temp 97.5 F L 06/19/20 16:00 Pulse 83 06/19/20 16:00 Resp 20 H 06/19/20 16:00 BP 134/69 06/19/20 16:00 Pulse Ox 95 06/19/20 16:00 06/19/20 06/19/20 06/19/20 06:59 14:59 22:59 Intake Total 50 / 50 0 / 2050 120 / 2170 Output Total 100 / 100 800 / 800 600 / 1400 Balance -50 / -50 1250 / 1250 -480 / 770 Weight last 48 hrs Weight 68.039 kg Physical Exam Const: COMMON NORMALS: no acute distress and patient oriented x3 OTHER: She is awake, alert, pleasant, conversant. Not in any discomfort. HENMT: COMMON NORMALS: oropharynx normal Neck/C-Spine: COMMON NORMALS: no JVD Resp: COMMON NORMALS: normal respiratory effort AUSCULTATION: rhonchi and wheezes Cardio: COMMON NORMALS: no JVD, regular rhythm, S1 normal heart sound present, S2 normal heart sound present and No murmurs present (Cardio) RHYTHM: regular rhythm HEART SOUNDS: S1 normal heart sound present and S2 normal heart sound present GI: COMMON NORMALS: Normal to inspection, nondistended, normoactive bowel sounds present, Soft to palpation and non-tender PALPATION: Yes Soft to palpation Extremity: COMMON NORMALS: no joint enlargement and no pedal edema Neuro: COMMON NORMALS: patient oriented x3 and moves all extremities Skin: COMMON NORMALS: no rashes or lesions noted GENERAL SKIN EXAM: no rashes or lesions noted Urinary Catheter Management^: Navarro: Cath Placed During This Visit: yes Reason for Continuing Indwelling Catheter: Other Urinary Catheter Date of Insertion: 06/19/20 Urinary Catheter Time of Insertion: 11:14 Data : 06/19/20 01:46 06/19/20 01:46 A&P Assessment and plan (1) Acute exacerbation of chronic obstructive airways disease: COPD exacerbation. Pneumonia. He is having rhonchi, wheezing, coughing. Subjectively feeling short of breath, although saturation has been good. May be due to air hunger. Did receive some as needed doses of Xanax which seemed to have helped his symptoms. Due to concern for possible aspiration will request for MBS assessment. He does not remember whether he coughs with food or drink, thinks that he does not, but is also not a great historian. At this time continue Unasyn. Solu-Medrol. Albuterol. Advair Diskus. Spiriva. DuoNeb as needed. CT angiogram in March, he does have a dense left lower lobe consolidation, consistent with aspiration, given his dementia, recurrent exacerbations, highly suspicious of recurrent aspiration pneumonia. -In addition patient has radiographic features of pulmonary fibrosis, no known history? Discussed with his son. Some reports has not seen patient coughing with food or drink. Does report that anxiety has been a great issue for his father, sometimes going into full-blown panic attacks. Reports that previously Xanax was a little bit strong for him, however, recently has had much less effect. Discussed consideration of raising the dose as Xanax is rather short acting. Also consideration of referral to [facility] for consideration of additional options for management of anxiety. Status: Acute (2) NSTEMI (non-ST elevated myocardial infarction): Chest discomfort is pleuritic. Troponin is without rise. Suspected demand and supply mismatch due to pneumonia, COPD exacerbation. Echocardiogram with EF 50%. Mild diffuse hypokinesia and inferior wall. Technically difficult study. -Has a history of CAD status post stenting, on Plavix Consider additional assessment by stress testing after he is out of acute illness. Status: Acute (3) Chest pain: Status: Acute (4) Aspiration pneumonia: Status: Acute (5) Pulmonary fibrosis: Status: Acute (6) COPD (chronic obstructive pulmonary disease): Status: Acute Qualifiers: COPD type: chronic bronchitis Chronic bronchitis type: simple Qualified Code(s): J41.0 - Simple chronic bronchitis (7) BPH (benign prostatic hyperplasia): Status: Acute Qualifiers: Lower urinary tract symptom presence: symptoms present Lower urinary tract symptom detail: straining on urination Qualified Code(s): N40.1 - Benign prostatic hyperplasia with lower urinary tract symptoms; R39.16 - Straining to void (8) TAIWO (obstructive sleep apnea): Status: Acute (9) Hypothyroidism: Status: Acute (10) Hypertension: Status: Acute Attestations Medical Necessity Statement*: Requires admission of over 2 midnights for assessment of management of COPD observation, pneumonia, with acute on chronic hypoxia. Coding Level of Care Code Acute Electronics Engineering Technologist for g Fwd Diagnoses Acute exacerbation of chronic obstructive airways disease J44.1 NSTEMI (non-ST elevated myocardial infarction) I21.4 Chest pain R07.9 Aspiration pneumonia J69.0 Pulmonary fibrosis J84.10 COPD (chronic obstructive pulmonary disease) J41.0 COPD type: chronic bronchitis Chronic bronchitis type: simple BPH (benign prostatic hyperplasia) N40.1; R39.16 Lower urinary tract symptom presence: symptoms present Lower urinary tract symptom detail: straining on urination TAIWO (obstructive sleep apnea) G47.33 Hypothyroidism E03.9 Hypertension I10
[2020-06-19] MEDS: docusate sodium 100 mg Capsule PO (22:39)
[2020-06-20] VITALS (14 sets, daily range): BP systolic 153–190; BP diastolic 66–91; PULSE 61–78; RESP 17–74; TEMP 36.5–36.8; O2SAT 90–97
[2020-06-20] MEDS: acetaminophen 325 mg Tablet 650 MG PO ×3 (01:03→19:32)
[2020-06-20] MEDS: albuterol 8 gm MDI 2 PUFF INHALATION ×6 (03:01→23:10)
[2020-06-20] MEDS: ampicillin-sulbactam 3 GM in sodium chloride 0.9% (plus) 50 ML IV ×4 (03:47→21:15)
[2020-06-20 05:08] LABS: Basophils % 0.1 %; Hematocrit 39.4 % (42.0-52.0); Hemoglobin 12.3 g/dL (11.7-16.6); Lymphocytes # 0.6 10^3/uL (0.8-4.8); Lymphocytes % 3.9 %; Mean Corpuscular HGB Conc 31.2 g/dL (30.0-36.0); Mean Corpuscular Hemoglobin 30.4 pg (28.0-34.0); Mean Corpuscular Volume 97.3 fL (80-94); Mean Platelet Volume 9.8 fL (7.4-10.4); Monocytes # 0.4 10^3/uL (0.2-0.9); Neutrophils # 13.32 10^3/uL (1.8-7.7); Nucleated Red Blood Cells % 0 %; Platelet Count 208 10^3/cmm (130-400); Red Blood Count 4.05 10^6/uL (4.1-5.3); Red Cell Distribution Width 14.1 % (12.1-15.1); White Blood Count 14.5 10^3/uL (4.0-10.0)
[2020-06-20 05:24] LABS: INR 1.04 (0.8-1.2)
[2020-06-20 05:29] LABS: Alanine Aminotransferase 17 U/L (0-41); Alkaline Phosphatase 60 IU/L (40-130); Anion Gap 13.1 (5-19); Aspartate Amino Transferase 15 U/L (0-40); Blood Urea Nitrogen 29 mg/dL (8-23); C Reactive Protein 67.5 mg/L (0.0-4.9); Calcium 8.6 mg/dL (8.5-10.5); Carbon Dioxide 25 mmol/L (22-29); Chloride 108 mmol/L (98-107); Globulin 2.5 g/dL (1.3-4.6); Glucose 185 mg/dL (65-115); Osmolality Calculated 305 mOsm/kg (285-295); Phosphorus 3.5 mg/dL (2.5-4.5); Potassium 4.1 mmol/L (3.5-5.1); Sodium 142 mmol/L (136-145); Total Bilirubin 0.3 mg/dL (0.15-1.2); Total Protein 5.5 g/dL (6.6-8.7)
[2020-06-20 05:41] LABS: NT Pro B Type Natriuretic Pept 1301 pg/mL (0-450); Procalcitonin 0.13 ng/mL (0-0.5)
[2020-06-20] MEDS: levothyroxine 50 mcg Tablet PO (10:19)
[2020-06-20] MEDS: lisinopril 20 mg Tablet 40 MG PO ×2 (10:19→17:40)
[2020-06-20] MEDS: atorvastatin 40 mg Tablet 20 MG PO (10:19)
[2020-06-20] MEDS: metoprolol tartrate 25 mg Tablet PO ×2 (10:19→17:40)
[2020-06-20] MEDS: clopidogrel 75 mg Tablet PO (10:19)
[2020-06-20] MEDS: NIFEdipine ER (24 hr) 30 mg Tablet PO (10:20)
[2020-06-20] MEDS: sodium chloride 0.9% 1,000 ML 100 ML IV ×2 (10:20→21:15)
[2020-06-20] MEDS: tamsulosin 0.4 mg Capsule PO (10:20)
[2020-06-20] MEDS: ALPRAZolam 0.5 mg Tablet PO ×2 (10:27→19:33)
--- NOTE | 2020-06-20 10:31 | PC.CHAP ---
Pastoral Care Encounter/Spiritual Assessment Type of Contact [] Declined wheel filler visit [] Patient/Family/Request visit [] Outpatient visit [] Follow-up visit [] Physician referral [] Code/Alert [X] Routine visit [] Staff referral [] Actively dying [] Patient sleeping [] Family support [] [] Out of room [] Palliative care [] [] Receiving care in room [] Pre-surgical visit [] Trauma [] Long length of stay [] ICU visit [] Other: Relational/Emotional Strength [] Patient feels connected with others/family/visitors/staff [] Distress [] Loneliness/isolation [] Abandonment Spirituality of Patient [] Person of [place] [] Attends Adventist of their [place] [] Believes in Prayer [] Reads Bible or Episcopal materials [] There are Spiritual issues to be addressed Gas Plant Specialist Interventions [] Prayer [] Active listening [] Non-anxious presence [] Spiritual/emotional support [] Crisis/trauma care [] Spiritual counseling [] Bereavement support [] Provided bereavement packet [] Provided Bible/devotional materials [] Provided toy/stuffed animal, coloring book to patient or family member [] Provided Communion [] Anointing/[place] [] Salvation [] Completed spiritual assessment [] Other: Impact on Illness or Injury [] Angry [] Fearful [] Anxious [] Often cries [] Exhaustion [] Unable to work [] Unable to attend taoist [] Unable to walk/stand [] Unable to read [] Unable to drive [] Unable to eat/drink [] Unable to sleep [] Unable to be with family [] Patient intubated [] Other: Summary Time spent with patient
--- NOTE | 2020-06-20 20:58 | PM.PN ---
Subjective Subjective: Interval history: He is not sure exactly how he is doing. He denies chest pain. Vitals/I&O/Wt Last Vital Signs Temp 97.8 F 06/20/20 19:44 Pulse 64 06/20/20 20:40 Resp 19 H 06/20/20 20:30 BP 170/91 06/20/20 19:44 Pulse Ox 93 06/20/20 20:30 06/20/20 06/20/20 06/20/20 06:59 14:59 22:59 Intake Total 1100 / 3320 1190 / 1190 290 / 1480 Output Total 500 / 1900 340 / 340 Balance 600 / 1420 1190 / 1190 -50 / 1140 Physical Exam Const: COMMON NORMALS: no acute distress and patient oriented x3 OTHER: She is awake, alert, pleasant, conversant. Not in any discomfort. HENMT: COMMON NORMALS: oropharynx normal Neck/C-Spine: COMMON NORMALS: no JVD Resp: COMMON NORMALS: normal respiratory effort AUSCULTATION: rhonchi (Fewer), no wheezes and diminished lung sounds Cardio: COMMON NORMALS: no JVD, regular rhythm, S1 normal heart sound present, S2 normal heart sound present and No murmurs present (Cardio) RHYTHM: regular rhythm HEART SOUNDS: S1 normal heart sound present and S2 normal heart sound present GI: COMMON NORMALS: Normal to inspection, nondistended, normoactive bowel sounds present, Soft to palpation and non-tender PALPATION: Yes Soft to palpation Extremity: COMMON NORMALS: no joint enlargement and no pedal edema Neuro: COMMON NORMALS: patient oriented x3 and moves all extremities Skin: COMMON NORMALS: no rashes or lesions noted GENERAL SKIN EXAM: no rashes or lesions noted Urinary Catheter Management^: Navarro: Cath Placed During This Visit: yes Reason for Continuing Indwelling Catheter: Acute Urinary Retention or Obstruction Urinary Catheter Date of Insertion: 06/19/20 Urinary Catheter Time of Insertion: 11:14 Data : 06/20/20 04:45 06/20/20 04:45 A&P Assessment and plan (1) Acute exacerbation of chronic obstructive airways disease: Appears to be improving. Wheezing has improved. Fewer oral diet. Somewhat diminished air entry. Leukocytosis is worse today 14.5, although may be contribution from steroid. Afebrile. Continue intermittent benzodiazepine as needed for anxiety. COPD exacerbation. Pneumonia. Pending COVID-19 PCR. For now continue aspiration precautions. Pending MBS. At this time continue Unasyn. Solu-Medrol. Albuterol. Advair Diskus. Spiriva. DuoNeb as needed. Wean down oxygen as tolerating to baseline [address] angiogram in March, he does have a dense left lower lobe consolidation, consistent with aspiration, given his dementia, recurrent exacerbations, highly suspicious of recurrent aspiration pneumonia. -In addition patient has radiographic features of pulmonary fibrosis, no known history? Consider additional follow-up with [facility] for episodes of anxiety/panic. Status: Acute (2) NSTEMI (non-ST elevated myocardial infarction): Chest discomfort is pleuritic. Troponin is without rise. Suspected demand and supply mismatch due to pneumonia, COPD exacerbation. Echocardiogram with EF 50%. Mild diffuse hypokinesia and inferior wall. Technically difficult study. -Has a history of CAD status post stenting, on Plavix Consider additional assessment by stress testing after he is out of acute illness. Status: Acute (3) Chest pain: Status: Acute (4) Aspiration pneumonia: Status: Acute (5) Pulmonary fibrosis: Status: Acute (6) COPD (chronic obstructive pulmonary disease): Status: Acute Qualifiers: COPD type: chronic bronchitis Chronic bronchitis type: simple Qualified Code(s): J41.0 - Simple chronic bronchitis (7) BPH (benign prostatic hyperplasia): Status: Acute Qualifiers: Lower urinary tract symptom presence: symptoms present Lower urinary tract symptom detail: straining on urination Qualified Code(s): N40.1 - Benign prostatic hyperplasia with lower urinary tract symptoms; R39.16 - Straining to void (8) TAIWO (obstructive sleep apnea): Status: Acute (9) Hypothyroidism: Status: Acute (10) Hypertension: Status: Acute Attestations Medical Necessity Statement*: Continue admission for assessment of COPD, pneumonia, hypoxia, assessment for aspiration, assessment for COVID-19. Coding Level of Care Code Acute Ld Teacher for [facility] Diagnoses Acute exacerbation of chronic obstructive airways disease J44.1 NSTEMI (non-ST elevated myocardial infarction) I21.4 Chest pain R07.9 Aspiration pneumonia J69.0 Pulmonary fibrosis J84.10 COPD (chronic obstructive pulmonary disease) J41.0 COPD type: chronic bronchitis Chronic bronchitis type: simple BPH (benign prostatic hyperplasia) N40.1; R39.16 Lower urinary tract symptom presence: symptoms present Lower urinary tract symptom detail: straining on urination TAIWO (obstructive sleep apnea) G47.33 Hypothyroidism E03.9 Hypertension I10
[2020-06-20] MEDS: docusate sodium 100 mg Capsule PO (21:15)
[2020-06-21] VITALS (16 sets, daily range): BP systolic 144–209; BP diastolic 62–88; PULSE 67–106; RESP 16–24; TEMP 36.3–37; O2SAT 82–98
[2020-06-21] MEDS: ALPRAZolam 0.5 mg Tablet PO ×2 (00:35→09:20)
[2020-06-21] MEDS: LORazepam 2 mg/mL INJ 1 mL 1 MG IVP (02:34)
[2020-06-21] MEDS: ampicillin-sulbactam 3 GM in sodium chloride 0.9% (plus) 50 ML IV ×2 (02:35→09:21)
--- NOTE | 2020-06-21 02:52 | PC.NURSE ---
Patient is currently on 5LNC due to satting at 90% on 4LNC. Has had several bouts of anxiety tonight. Dr. Joyce gave new orders for 1mg of ativan IVP one time. This was after giving PRN xanax at shift change and 0035. Patient is now resting comfortably after having ativan. No other needs voiced at this time. Will continue to monitor.
[2020-06-21] MEDS: albuterol 8 gm MDI 2 PUFF INHALATION ×4 (03:40→15:22)
[2020-06-21 04:05] LABS: Basophils % 0.1 %; Hemoglobin 11.4 g/dL (11.7-16.6); Lymphocytes # 0.4 10^3/uL (0.8-4.8); Lymphocytes % 3.6 %; Mean Corpuscular HGB Conc 31.7 g/dL (30.0-36.0); Mean Corpuscular Hemoglobin 30.4 pg (28.0-34.0); Mean Platelet Volume 9.9 fL (7.4-10.4); Monocytes # 0.4 10^3/uL (0.2-0.9); Monocytes % 4.2 %; Neutrophils # 9.43 10^3/uL (1.8-7.7); Neutrophils % 91.3 %; Nucleated Red Blood Cells % 0 %; Platelet Count 200 10^3/cmm (130-400); Red Blood Count 3.75 10^6/uL (4.1-5.3); Red Cell Distribution Width 13.8 % (12.1-15.1); White Blood Count 10.3 10^3/uL (4.0-10.0)
[2020-06-21 04:28] LABS: Alanine Aminotransferase 16 U/L (0-41); Albumin Level 2.9 g/dL (3.5-5.2); Alkaline Phosphatase 56 IU/L (40-130); Anion Gap 12.2 (5-19); Aspartate Amino Transferase 11 U/L (0-40); Blood Urea Nitrogen 30 mg/dL (8-23); Calcium 8.3 mg/dL (8.5-10.5); Carbon Dioxide 24 mmol/L (22-29); Chloride 110 mmol/L (98-107); Globulin 2.1 g/dL (1.3-4.6); Glucose 289 mg/dL (65-115); Osmolality Calculated 311 mOsm/kg (285-295); Phosphorus 2.6 mg/dL (2.5-4.5); Potassium 4.2 mmol/L (3.5-5.1); Sodium 142 mmol/L (136-145); Total Bilirubin 0.2 mg/dL (0.15-1.2)
[2020-06-21 04:30] LABS: INR 1.04 (0.8-1.2)
[2020-06-21 04:38] LABS: NT Pro B Type Natriuretic Pept 2960 pg/mL (0-450); Procalcitonin 0.09 ng/mL (0-0.5)
[2020-06-21 04:46] LABS: C Reactive Protein 32.2 mg/L (0.0-4.9)
[2020-06-21] MEDS: sodium chloride 0.9% 1,000 ML 100 ML IV (05:56)
[2020-06-21 06:26] LABS: Coronavirus Lab Test PTC Negative
--- NOTE | 2020-06-21 08:03 | FL_ITS ---
WS: [id number] MODIFIED BARIUM SWALLOW TECHNIQUE: Modified barium swallow with speech therapy using multiple consistencies. FLUOROSCOPY TIME: 3.3 minutes. CLINICAL INFORMATION: Oropharyngeal dysphagia COMPARISON: None. FINDINGS: Multiple consistencies utilized. Penetration with thin liquids. Suspected aspiration in 1 instance wi th cough reflex. Delayed oropharyngeal phase. No difficulty swallowing barium tablet. FL/FL barium swallow modifd [id number] IMPRESSION: Penetration with thin liquids with one instance of suspected aspiration with co ugh reflex. See speech therapy note for further detail.
[2020-06-21] MEDS: lisinopril 20 mg Tablet 40 MG PO ×2 (08:14→17:27)
[2020-06-21] MEDS: clopidogrel 75 mg Tablet PO (08:14)
[2020-06-21] MEDS: atorvastatin 40 mg Tablet 20 MG PO (08:14)
[2020-06-21] MEDS: NIFEdipine ER (24 hr) 30 mg Tablet PO (08:14)
[2020-06-21] MEDS: metoprolol tartrate 25 mg Tablet PO ×2 (08:14→17:27)
[2020-06-21] MEDS: levothyroxine 50 mcg Tablet PO (08:14)
[2020-06-21] MEDS: tamsulosin 0.4 mg Capsule PO (08:14)
[2020-06-21] MEDS: amoxicillin-clav 875-125 mg Tablet 1 TAB PO ×2 (10:12→17:27)
[2020-06-21] MEDS: FUROsemide 10 mg/mL SDV 2mL 20 MG IVP (10:47)
[2020-06-21] MEDS: acetaminophen 325 mg Tablet 650 MG PO (14:39)
--- NOTE | 2020-06-21 15:59 | PM.DCS ---
Discharge Providers Date of Admission: 06/19/20 18:53 Date of Discharge: June 21, 2020 Attending Provider at Admission: Paolo Joyce MD Attending Provider at Discharge: Juno Arshad Primary Care Provider: Americo Seo MD Diagnoses at Discharge Discharge Diagnosis (1) Aspiration pneumonia: Status: Acute Permanent problem details: Penetration noted on MBS with thin liquids. Instructed to thicken liquids to honey thick consistency. Aspiration precautions. Possible pulmonary fibrosis from chronic aspiration? Please consider additional investigation depending on patient and family goals of care. (2) Acute exacerbation of chronic obstructive airways disease: Status: Acute Permanent problem details: This is improving, but anxiety/air hunger is a very significant problem for him. Continued on Xanax. Referred in addition for follow-up with [facility] to help manage. Please follow-up and titrate benzodiazepine medication. (3) Anxiety: Status: Acute (4) Pulmonary fibrosis: Status: Acute (5) NSTEMI (non-ST elevated myocardial infarction): Status: Acute Permanent problem details: Suspected secondary to mismatch and demand supply. Mild troponin elevation on presentation to around 45. No chest pain. (6) Chest pain: Status: Acute (7) COPD (chronic obstructive pulmonary disease): Status: Acute Permanent problem details: 2 L [id number] Underlying severe COPD. Currently do not hear wheezing. Does not appear to be in COPD exacerbation. Continue breathing treatments as needed. Qualifiers: COPD type: chronic bronchitis Chronic bronchitis type: simple Qualified Code(s): J41.0 - Simple chronic bronchitis (8) BPH (benign prostatic hyperplasia): Status: Acute Qualifiers: Lower urinary tract symptom detail: straining on urination Lower urinary tract symptom presence: symptoms present Qualified Code(s): N40.1 - Benign prostatic hyperplasia with lower urinary tract symptoms; R39.16 - Straining to void (9) TAIWO (obstructive sleep apnea): Status: Acute (10) Hypothyroidism: Status: Acute (11) Hypertension: Status: Acute Reason for Visit Reason for Visit: COPE EXACERBATION Hospital Course Discharge Summary: Pleasant 80-year-old gentleman with history of COPD, chronically on 2 L of oxygen, current smoker, with history of severe anxiety/panic attacks/air hunger, CAD status post stenting, HTN, status post carotid endarterectomy, history of CVA, residual right-sided weakness, dementia was admitted for assessment management of more shortness of breath, nonproductive cough, found to be in COPD exacerbation, and with finding of pneumonia, left lower lobe, with concern for aspiration. He was treated with antibiotics, steroid, breathing treatments, oxygen support requiring 4 L. His oxygenation stabilized. He is remained afebrile. Vital signs otherwise have been good, with episodic hypertension. He was tested for COVID-19, and was negative on rapid and PCR testing. He has had intermittent episodes of anxiety/air hunger/panic in the hospital. These did respond to treatment with Xanax. We will continue symptomatic treatment to alleviate symptoms of anxiety. He is referred for follow-up with [facility] as well to help manage symptoms of persistent anxiety and panic attacks. Of note his troponin was noted mildly elevated up to 48. He has had no chest pain. With history of CAD, after he recovers from pneumonia and COPD exacerbation, please refer her for additional assessment with stress testing if he and family will be willing to do so depending on goals of care. While in the hospital he underwent additional assessment by modified barium swallow evaluation. Please see full report. He was noted to have penetration with thin liquids, 1 instance of suspected aspiration with cough reflex. Delayed oropharyngeal phase. It is recommended he continue nectar thick liquids. Strict aspiration precautions. He will complete a course with Augmentin for aspiration pneumonia. Prednisone taper. He has a nebulizer at home, and per discussion with his son has ample supply of nebulized medications. Please continue to optimize treatment of COPD. If he and son may be willing depending on goals of care, consider referral to pulmonology. Please continue to college and career counselor smoking cessation. Physical Exam Const: COMMON NORMALS: no acute distress and alert GENERAL APPEARANCE: comfortable ORIENTATION/CONSCIOUSNESS: Yes awake OTHER: He is awake, alert, sitting up in bed. Eating. He is in good spirits. Cooperative, conversant. HENMT: COMMON NORMALS: oropharynx normal Neck/C-Spine: COMMON NORMALS: no JVD Resp: COMMON NORMALS: normal respiratory effort AUSCULTATION: no wheezes and diminished lung sounds Cardio: COMMON NORMALS: no JVD, regular rhythm, S1 normal heart sound present, S2 normal heart sound present and No murmurs present (Cardio) RHYTHM: regular rhythm HEART SOUNDS: S1 normal heart sound present and S2 normal heart sound present GI: COMMON NORMALS: Normal to inspection, nondistended, normoactive bowel sounds present, Soft to palpation and non-tender PALPATION: Yes Soft to palpation Extremity: COMMON NORMALS: no joint enlargement and no pedal edema Neuro: COMMON NORMALS: moves all extremities SENSORIUM/ORIENTATION: Yes alert Skin: COMMON NORMALS: no rashes or lesions noted GENERAL SKIN EXAM: no rashes or lesions noted Urinary Catheter Management^: Navarro: Cath Placed During This Visit: yes Reason for Continuing Indwelling Catheter: Acute Urinary Retention or Obstruction Urinary Catheter Date of Insertion: 06/19/20 Urinary Catheter Time of Insertion: 11:14 Discharge Data Data Completed and Pending: Completed Studies During Hospitalization Category Date Time Status FL barium swallow modifd [id number] Rout ine Exams 06/21/20 08:03 Completed XR chest 1V joan ble [id number] Stat Exams 06/18/20 16:03 Completed CV echo complete* [id number] Routine Ultrasound 06/19/20 10:00 Completed Pending at discharge Category Date Time Status Complete Blood Co unt w/Auto AM LABS Lab 06/22/20 04:00 Ordered Labs from last 24 hours 06/21/20 06/21/20 06/21/20 03:56 03:56 03:56 WBC 10.3 H RBC 3.75 L Hgb 11.4 L Hct 36.0 L MCV 96.0 H MCH 30.4 MCHC 31.7 RDW 13.8 Plt Count 200 MPV 9.9 Neut % (Auto) 91.3 Lymph % (Auto) 3.6 [place] % (Auto) 4.2 Eos % (Auto) 0.0 Baso % (Auto) 0.1 Neut # (Auto) 9.43 H Lymph # (Auto) 0.4 L [place] # (Auto) 0.4 Eos # (Auto) 0.0 Baso # (Auto) 0.0 Nucleated RBC % (a uto) 0 Nucleated RBCs # 0.0 PT 13.90 INR 1.04 Sodium Potassium Chloride Carbon Dioxide Anion Gap BUN Creatinine GFR Calculation Glucose Calculated Osmolal ity Calcium Phosphorus Magnesium Total Bilirubin AST ALT Alkaline Phosphata se C-Reactive Protein NT-Pro-B Natriuret Pep 2960 H Total Protein Albumin Globulin Procalcitonin 0.09 Nasal/Oral COVID-1 9 PCR 06/21/20 06/19/20 03:56 07:50 WBC RBC Hgb Hct MCV MCH MCHC RDW Plt Count MPV Neut % (Auto) Lymph % (Auto) [place] % (Auto) Eos % (Auto) Baso % (Auto) Neut # (Auto) Lymph # (Auto) [place] # (Auto) Eos # (Auto) Baso # (Auto) Nucleated RBC % (a uto) Nucleated RBCs # PT INR Sodium 142 Potassium 4.2 Chloride 110 H Carbon Dioxide 24 Anion Gap 12.2 BUN 30 H Creatinine 1.0 GFR Calculation Not Reportable Glucose 289 H Calculated Osmolal ity 311 H Calcium 8.3 L Phosphorus 2.6 Magnesium 2.0 Total Bilirubin 0.2 AST 11 ALT 16 Alkaline Phosphata se 56 C-Reactive Protein 32.2 H NT-Pro-B Natriuret Pep Total Protein 5.0 L Albumin 2.9 L Globulin 2.1 Procalcitonin Nasal/Oral COVID-1 9 PCR Negative Vitals: Last Vital Signs Temp 97.6 F 06/21/20 15:44 Pulse 106 H 06/21/20 15:44 Resp 24 H 06/21/20 15:44 BP 154/62 06/21/20 15:52 Pulse Ox 92 06/21/20 15:44 Discharge Plan Discharge Patient Disposition: Home Condition: Stable Prescriptions: New amoxicillin-pot clavulanate 875-125 mg Tablet 1 tab PO BID Qty: 13 RF: 0 prednisone 20 mg tablet See Rx Instructions .ROUTE .COMPLEX Qty: 20 RF: 0 Continued albuterol sulfate [Ventolin HFA] 90 mcg/actuation HFA aerosol inhaler 2 puff INHALATION Q4H RF: 0 quinapril 40 mg tablet 40 mg PO BID RF: 0 clopidogrel [Plavix] 75 mg tablet 75 mg PO DAILY RF: 0 metoprolol tartrate 25 mg tablet 25 mg PO BID 90 Days Qty: 180 RF: 3 levothyroxine 50 mcg tablet 50 mcg PO DAILY 90 Days Qty: 90 RF: 3 atorvastatin [Lipitor] 10 mg tablet 10 mg PO DAILY Qty: 90 RF: 3 nifedipine 30 mg tablet extended release 30 mg PO DAILY Qty: 90 RF: 3 tamsulosin [Flomax] 0.4 mg capsule 0.4 mg PO DAILY Qty: 90 RF: 1 alprazolam 0.5 mg tablet 0.5 mg PO TID PRN (Reason: anxiety) Qty: 70 RF: 1 docusate sodium [Colace] 100 mg Capsule 100 mg PO BEDTIME RF: 0 diphenhydramine-acetaminophen [Tylenol PM Extra Strength] 25-500 mg Tablet 1 tab PO BEDTIME RF: 0 Atrovent HFA 17 mcg/actuation Hfa Aerosol Inhaler See Rx Instructions .ROUTE .COMPLEX RF: 0 Brovana 15 mcg/2 mL Solution For Nebulization See Rx Instructions .ROUTE .COMPLEX RF: 0 budesonide-formoterol See Rx Instructions .ROUTE .COMPLEX RF: 0 Held prednisone 10 mg tablet 10 mg PO BID Qty: 60 RF: 1 Hold Instructions: Resume on 07/03/20. Discharge Orders: Discharge Order (Routine); Ordered 06/21/20 Ordered By: Juno Arshad Other Ambulatory Orders: DME: Oxygen (Order) Location: None Selected Ordered By: Juno Arshad Referrals: [facility] [Provider Group] - 1 week Americo Seo MD [Primary Care Provider] - 4-7 days (Pneumonia, COPD Please call Dr Seo's office tomorrow and set up and appointment to see Dr Seo within one week. [phone]) Discharge Diet: As Directed and Cardiac Discharge Activity: Increase activity as tolerated and Oxygen as instructed Patient Instructions: COPD, Prednisone (By mouth), Amoxicillin/Clavulanate Potassium (By mouth), COPD Stoplight, Pneumonia Stoplight, Pneumonia - Viral Activity Restrictions/Additional Instructions: Please stop smoking. Continued smoking will lead to continued destruction of your lungs, progression of lung disease, worsening hypoxia, worsening feeling of shortness of breath, in addition to other risks including cardiovascular disease, heart attack, stroke, various cancers, and other complications. Please never smoked anywhere near oxygen due to severe fire hazard, risking severe airway colon and . Continue oxygen 3 L with exertion, target saturation 92%. 4 episodes of anxiety/air hunger/panic use Xanax as needed. Please follow-up with your primary care provider for additional assessment and adjustment of Xanax dose. Follow-up with behavioral health care to assist with management of anxiety. Due to noted penetration of thin liquids to the airway and risk of aspiration, please thicken liquids to honey thick consistency. Maintain strict aspiration precautions. Take small bites. Chew completely. Small sips of water. Maintain chin tuck. Sit upright. Make sure you are completely awake and aware when you are eating or drinking. Complete antibiotic course for aspiration pneumonia. After you complete prednisone taper, resume your usual prednisone dose. After you recover from pneumonia, please discuss with your primary care doctor additional assessment by cardiac stress test to rule out progression of coronary artery disease due to noted mild abnormality of troponin on presentation without acute rise to suggest acute heart attack. In case of any worsening of oxygenation, any episodes of severe chest pain, fainting, or other concerning symptoms, please go to ER. Discharge Attestations Time Spent in Discharge Care*: greater than 30 min Quality Metrics Clinical Quality Measures During this hospital stay, did patient experience: None Coding Level of Care Code Acute Roofing Laborer for [facility] Fwd Diagnoses Aspiration pneumonia J69.0 Acute exacerbation of chronic obstructive airways disease J44.1 Anxiety F41.9 Pulmonary fibrosis J84.10 NSTEMI (non-ST elevated myocardial infarction) I21.4 Chest pain R07.9 COPD (chronic obstructive pulmonary disease) J41.0 COPD type: chronic bronchitis Chronic bronchitis type: simple BPH (benign prostatic hyperplasia) N40.1; R39.16 Lower urinary tract symptom detail: straining on urination Lower urinary tract symptom presence: symptoms present TAIWO (obstructive sleep apnea) G47.33 Hypothyroidism E03.9 Hypertension I10
[2020-06-21] MEDS: ipratropium-albuterol 3 mL Neb INHALATION (17:51)
--- NOTE | 2020-06-21 19:13 | PC.SLP ---
ASSISTANT PROFESSOR OF NURSING discussed the pts performance on the MBS performed earlier today with the pt and his son. Dietary recommendations discussed. Aspiration risk discussed, with respiratory complications discussed. Thickener provided to the son to utilize with the pt until he can get a supply for the pt.
== END 2020-06-21 16:55 | disposition home or self-care (01) | DRG 177 ==
LOC: ER 22:14 → MEDSURG 22:39
PROVIDERS: Emergency Medicine; Family Medicine; Admitting Provider Family Medicine; PCP Family Medicine; Visit Provider Internal Medicine
DX: J69.0 Pneumonitis due to inhalation of food and vomit (principal); I21.A1 Myocardial infarction type 2; J96.21 Acute and chronic respiratory failure with hypoxia; J44.1 Chronic obstructive pulmonary disease with (acute) exacerbation; I69.951 Hemiplegia and hemiparesis following unspecified cerebrovascular disease affecting right dominant side; Z99.81 Dependence on supplemental oxygen; F17.210 Nicotine dependence, cigarettes, uncomplicated; I25.10 Atherosclerotic heart disease of native coronary artery without angina pectoris; Z95.5 Presence of coronary angioplasty implant and graft; I10 Essential (primary) hypertension; E03.9 Hypothyroidism, unspecified; F03.90 Unspecified dementia, unspecified severity, without behavioral disturbance, psychotic disturbance, mood disturbance, and anxiety; N40.1 Benign prostatic hyperplasia with lower urinary tract symptoms; R39.16 Straining to void; G47.33 Obstructive sleep apnea (adult) (pediatric); J84.10 Pulmonary fibrosis, unspecified; F41.0 Panic disorder [episodic paroxysmal anxiety]; Z79.51 Long term (current) use of inhaled steroids; Z79.02 Long term (current) use of antithrombotics/antiplatelets
CPT/HCPCS: 12345; 36415; 36600; 51702; 71045; 74230; 80051; 80053; 81001; 82330; 82805; 83605; 83735; 83880; 84100; 84145; 84484; 85025; 85610; 86140; 87426; 87635; 92611; 93005; 93306; 94640; 96375; 99284; G0378; J0295; J1100; J1940; J2060; J2920; J3490; J3535; J7030

== ENCOUNTER 2020-06-26 03:39 | Inpatient (IN) | payer MEDICARE, OTHER, SELFPAY ==
[2020-06-26] VITALS (48 sets, daily range): BP systolic 102–188; BP diastolic 44–133; PULSE 71–147; RESP 16–49; TEMP 36.7–37; O2SAT 79–98; BMI 28.1
--- NOTE | 2020-06-26 03:54 | ECG_ITS ---
[facility] Test Date: 2020-06-26 Pat Name: Santiago Islas Department: Room: ICU11 Gender: Male Batch Or Continuous Still Operator: : 1940 Requested By: Daisy Robles Order Number: [id number] Radha MD: Magaly Godinez M.D. Measurements Intervals [place] Rate: 132 P: 142 WA: 148 QRS: 171 QRSD: 134 T: 7 QT: 330 QTc: 490 Interpretive Statements SINUS TACHYCARDIA WITH OCCASIONAL VENTRICULAR PREMATURE COMPLEXES INTRAVENTRICULAR CONDUCTION DELAY [130+ ms QRS DURATION] POSSIBLE RIGHT VENTRICULAR HYPERTROPHY [SOME/ALL OF: PROMINENT R IN V1, LATE TRANSITION, RAD, RADHA, SSS] INTERPRETATION BASED ON A DEFAULT AGE OF 40 YEARS Compared to ECG 06/19/2020 04:57:20 Ventricular premature complex(es) now present Atrial abnormality now present Myocardial infarct finding no longer present Electronically Signed On 06-26-2020 19:16:28 CHILD DAY CARE TEACHER by Magaly Godinez M.D. [email or web address]
--- NOTE | 2020-06-26 03:54 | XRR_ITS ---
PROCEDURE INFORMATION: Exam: XR Chest, 1 View Exam date and time: 06/26/2020 4:11 AM Age: 80 years old Clinical indication: Dyspnea TECHNIQUE: Imaging protocol: XR of the chest Views: 1 view. COMPARISON: CR XR chest 1V portable [id number] 06/18/2020 4:19 PM FINDINGS: Lungs: Continued slight stranding in the lower lungs possibly due to atelectasis or scar. Still no apparent airspace disease. Pleural space: Interval tiny right lateral pleural effusion not excluded. Still no pneumothorax or apparent left pleural fluid. Heart/Mediastinum: Still no cardiomegaly. Vasculature: Continued aortic elongation and atherosclerosis. Bones/joints: Old infarct in the proximal left humeral shaft and diffuse osteopenia in the bones again evident. No visible acute bony disease. XR/XR chest 1V portable [id number] IMPRESSION: Questionable interval tiny right lateral pleural effusion. Continued slight atelectasis or scar in the lower lungs. Other chronic findings detailed above.
[2020-06-26 04:18] LABS: ABG PCO2 37.4 mmHg (35-45); ABG PH Result 7.46 (7.35-7.45); Arterial Blood Gas Hematocrit 47.1 % (42-52); Base Excess ABG 2.8 mmol/L (-2.0-2.0); Blood Gas Allen Test Pos; Blood Gas Sample Type Arterial; HCO3 ABG 26.6 mmol/L (22-26); PO2 ABG 75.4 mmHg (80.0-100.0)
--- NOTE | 2020-06-26 04:18 | PC.NURSE ---
received pt from alf with SOA/resp distress. EMS arrival with Medication given and 15L NRB
[2020-06-26 04:25] LABS: Blood Gas Operator Identificat HARKR; Blood Gas Sample Site Radial, right; Oxygen Device BIPAP
[2020-06-26] MEDS: ipratropium-albuterol 3 mL Neb 9 ML INHALATION (04:30)
--- NOTE | 2020-06-26 04:36 | W.ED.SOB ---
HPI - SOB/Dyspnea General: Chief Complaint: Shortness of Breath/Dyspnea Stated Complaint: RESP. DISTRESS Time Seen by Provider: 06/26/20 03:47 Source: patient and EMS Mode of arrival: EMS Limitations: physical limitation (Respiratory distress) History of Present Illness: HPI Narrative: Mr. Islas is an 80-year-old male who comes in in respiratory distress via EMS. The patient is in severe distress and cannot give a history. EMS reports the patient was recently discharged here for breathing problems and family stated since arriving at home he has just continued to decline. Patient did not have Covid on his last admission but EMS reports it was for some pulmonary issue that he was admitted. Patient is in obvious distress and necessitates BiPAP almost immediately. Review of Systems General: Reports: ROS unobtainable due to medical condition PFS ED PFSH: Medical History BPH (benign prostatic hyperplasia) COPD (chronic obstructive pulmonary disease) 2 L [id number] Underlying severe COPD. Currently do not hear wheezing. Does not appear to be in COPD exacerbation. Continue breathing treatments as needed. CVA (cerebral vascular accident) Right-sided residual weakness Edema Enrolled in chronic care management History of carotid artery stenosis Hyperglycemia Hypertension Hypertension Hypothyroidism TAIWO (obstructive sleep apnea) Oxygen dependent Pulmonary fibrosis Surgical History History of coronary artery stent placement History of endarterectomy CEA left-sided History of tonsillectomy Family History Other CAD (coronary artery disease) Stroke Social History Smoking and tobacco status: current every day smoker smokeless tobacco Alcohol intake: never Household members: family Housing: House Physical Exam Const: COMMON NORMALS: patient oriented x3 and alert GENERAL APPEARANCE: in distress and anxious HENMT: COMMON NORMALS: normocephalic, atraumatic, external ears normal, EAC's normal and Normal external nose present HEAD & SCALP: normal to inspection, normocephalic and atraumatic FACE & SINUS: normal facial exam and face symmetric NOSE: Normal external nose present and Normal nares present EXTERNAL EAR: Yes external ears normal EXTERNAL AUDITORY CANAL: EAC's normal MOUTH: Normal oral and palatal mucosa present, lip normal and tongue normal Eye: COMMON NORMALS: Equal, round and reactive pupils present and conjunctivae normal GENERAL EYE: appearance normal, both eyes and all related structures ALIGNMENT: Yes alignment normal PERIORBITAL: periorbital findings normal EYELID: eyelids normal CONJUNCTIVA: Yes conjunctivae normal SCLERA: sclerae normal PUPIL: Yes Equal, round and reactive pupils present Neck/C-Spine: COMMON NORMALS: full ROM, no lymphadenopathy, supple, no meningeal signs and no JVD GENERAL: Yes normal visual inspection and Yes trachea midline Chest: COMMONS NORMALS: normal inspection of the chest and normal palpation of entire chest wall Resp: EFFORT & INSPECTION: Yes respiratory distress and Yes audible wheezes AUSCULTATION: rhonchi, wheezes and diminished lung sounds Cardio: COMMON NORMALS: no JVD, regular rhythm, S1 normal heart sound present and S2 normal heart sound present RATE: tachycardic RHYTHM: regular rhythm HEART SOUNDS: S1 normal heart sound present, S2 normal heart sound present, no click, no gallops, no murmurs and no rubs GI: COMMON NORMALS: Soft to palpation and No hepatosplenomegaly present PALPATION: Yes Soft to palpation, No Tenderness to palpation present (GI), No Guarding due to palpation present (GI), No Rigid due to palpation, Yes No hepatosplenomegaly present, No Hernia present, No Palpable mass present and No Pulsatile mass present : COMMON NORMALS: Yes no CVA tenderness BLADDER/KIDNEY EXAM: Yes no CVA tenderness Back/Pelvis: COMMON NORMALS: no CVA tenderness, thoracic and lumbar spine normal to inspection, no thoracic nor lumbar tenderness and thoraco-lumbar ROM normal Extremity: COMMON NORMALS: normal to inspection, full ROM, capillary refill normal, no joint enlargement, no clubbing, cyanosis or edema and no calf tenderness Neuro: COMMON NORMALS: patient oriented x3, CN's II-XII intact bilaterally, moves all extremities, no focal motor deficits and no sensory deficits noted SENSORIUM/ORIENTATION: Yes alert MENINGEAL SIGNS: Yes no meningeal signs SPEECH: speech normal Skin: COMMON NORMALS: no rashes or lesions noted, turgor normal, no jaundice, no petechiae and no mottling GENERAL SKIN EXAM: no rashes or lesions noted and turgor normal Course ED course: 458 -Case reviewed with Dr. Dickey, agrees to a trial of Ativan for patient's anxiety to help him relax on the BiPAP. Vital Signs: Vital signs: Vital Signs Temperature 98.0 F 06/26/20 03:53 Pulse Rate 139 H 06/26/20 05:10 Respiratory Rate 27 H 06/26/20 05:10 Blood Pressure 188/82 06/26/20 05:10 Pulse Oximetry 79 L 06/26/20 05:10 MDM - SOB/Dyspnea Lab Data: Labs: Lab Results 06/26/20 06/26/20 06/26/20 Range/Units 03:20 03:20 04:08 WBC 25.0 H (4.0-10.0) 10^3/ uL RBC 4.85 (4.1-5.3) 10^6/u L Hgb 14.6 (11.7-16.6) g/dL Hct 47.3 (42.0-52.0) % MCV 97.5 H (80-94) fL MCH 30.1 (28.0-34.0) pg MCHC 30.9 (30.0-36.0) g/dL RDW 14.6 (12.1-15.1) % Plt Count 256 (130-400) 10^3/c mm MPV 10.6 H (7.4-10.4) fL Neut % (Auto) 84.4 % Lymph % (Auto) 9.5 % Andrews % (Auto) 4.3 % Eos % (Auto) 0.0 % Baso % (Auto) 0.2 % Neut # (Auto) 21.11 H (1.8-7.7) 10^3/u L Lymph # (Auto) 2.4 (0.8-4.8) 10^3/u L Andrews # (Auto) 1.1 H (0.2-0.9) 10^3/u L Eos # (Auto) 0.0 (0.0-0.8) 10^3/u L Baso # (Auto) 0.0 (0.0-0.1) 10^3/u L Nucleated RBC % (a uto) 0 % Nucleated RBCs # 0.0 /100WBC PT 13.50 (12.1-14.9) SECO NDS INR 1.00 (0.8-1.2) D-Dimer 4.27 H (0-0.59) ug/mIFE U Specimen Type Arterial Sample Site Radial, right ABG pH 7.46 H (7.35-7.45) ABG pCO2 37.4 (35-45) mmHg ABG pO2 75.4 L (80.0-100.0) mmH g ABG HCO3 26.6 H (22-26) mmol/L ABG Base Excess 2.8 H (-2.0-2.0) mmol/ L Van Test Pos Hematocrit 47.1 (42-52) % O2 Delivery Device Bipap FiO2 50.0 % Internet Marketing Coordinator ID Harkr Imaging Data^: CXR: Attestation: I personally reviewed and interpreted this imaging study as follows: My impression: Severe COPD but no obvious infiltrates. EKG Data^: EKG 1: Attestation: I personally reviewed and interpreted this EKG as follows: EKG Interpretation Date: 06/26/20 EKG interpretation time: 03:54 Interpretation: Sinus tachycardia at 132 beats a minute, interventricular conduction delay, right axis deviation, nonspecific ST and T wave changes. Discharge Plan Discharge Prescriptions: No Action albuterol sulfate [Ventolin HFA] 90 mcg/actuation HFA aerosol inhaler 2 puff INHALATION Q4H RF: 0 quinapril 40 mg tablet 40 mg PO BID RF: 0 clopidogrel [Plavix] 75 mg tablet 75 mg PO DAILY RF: 0 metoprolol tartrate 25 mg tablet 25 mg PO BID 90 Days Qty: 180 RF: 3 levothyroxine 50 mcg tablet 50 mcg PO DAILY 90 Days Qty: 90 RF: 3 atorvastatin [Lipitor] 10 mg tablet 10 mg PO DAILY Qty: 90 RF: 3 nifedipine 30 mg tablet extended release 30 mg PO DAILY Qty: 90 RF: 3 tamsulosin [Flomax] 0.4 mg capsule 0.4 mg PO DAILY Qty: 90 RF: 1 alprazolam 0.5 mg tablet 0.5 mg PO TID PRN (Reason: anxiety) Qty: 70 RF: 1 prednisone 10 mg tablet 10 mg PO BID Qty: 60 RF: 1 Hold Instructions: Resume on 07/03/20. amoxicillin-pot clavulanate 875-125 mg Tablet 1 tab PO BID Qty: 13 RF: 0 prednisone 20 mg tablet See Rx Instructions .ROUTE .COMPLEX Qty: 20 RF: 0 docusate sodium [Colace] 100 mg Capsule 100 mg PO BEDTIME RF: 0 diphenhydramine-acetaminophen [Tylenol PM Extra Strength] 25-500 mg Tablet 1 tab PO BEDTIME RF: 0 Atrovent HFA 17 mcg/actuation Hfa Aerosol Inhaler See Rx Instructions .ROUTE .COMPLEX RF: 0 Brovana 15 mcg/2 mL Solution For Nebulization See Rx Instructions .ROUTE .COMPLEX RF: 0 budesonide-formoterol See Rx Instructions .ROUTE .COMPLEX RF: 0 Coding Level of Care Code ED Television Service Engineer for Chg Fwd Exam Comprehensive
--- NOTE | 2020-06-26 04:43 | PC.NURSE ---
pt on BIpap. RT at bedside. Reviewing with pt importance of trying to relax.
--- NOTE | 2020-06-26 05:12 | PC.NURSE ---
Per provider, given 0.25 mg increment of Ativan to help pt relax.
[2020-06-26 05:16] LABS: Basophils % 0.2 %; Hematocrit 47.3 % (42.0-52.0); Hemoglobin 14.6 g/dL (11.7-16.6); Lymphocytes # 2.4 10^3/uL (0.8-4.8); Lymphocytes % 9.5 %; Mean Corpuscular HGB Conc 30.9 g/dL (30.0-36.0); Mean Corpuscular Hemoglobin 30.1 pg (28.0-34.0); Mean Corpuscular Volume 97.5 fL (80-94); Mean Platelet Volume 10.6 fL (7.4-10.4); Monocytes # 1.1 10^3/uL (0.2-0.9); Monocytes % 4.3 %; Neutrophils # 21.11 10^3/uL (1.8-7.7); Neutrophils % 84.4 %; Nucleated Red Blood Cells % 0 %; Platelet Count 256 10^3/cmm (130-400); Red Blood Count 4.85 10^6/uL (4.1-5.3); Red Cell Distribution Width 14.6 % (12.1-15.1)
--- NOTE | 2020-06-26 05:30 | PC.NURSE ---
Lab to draw lac and BC
[2020-06-26 05:37] LABS: D Dimer 4.27 ug/mIFEU (0-0.59)
[2020-06-26 05:41] LABS: Troponin(5th) Baseline 77 ng/L (0-15)
[2020-06-26 05:50] LABS: Alanine Aminotransferase 18 U/L (0-41); Albumin Level 3.4 g/dL (3.5-5.2); Alkaline Phosphatase 90 IU/L (40-130); Anion Gap 13.6 (5-19); Aspartate Amino Transferase 11 U/L (0-40); Blood Urea Nitrogen 26 mg/dL (8-23); Calcium 9.6 mg/dL (8.5-10.5); Carbon Dioxide 32 mmol/L (22-29); Chloride 99 mmol/L (98-107); Globulin 3.3 g/dL (1.3-4.6); Glucose 212 mg/dL (65-115); Lipase 10 U/L (13-60); Magnesium 2.4 mg/dL (1.7-2.3); NT Pro B Type Natriuretic Pept 2170 pg/mL (0-450); Osmolality Calculated 303 mOsm/kg (285-295); Potassium 3.6 mmol/L (3.5-5.1); Sodium 141 mmol/L (136-145); Total Bilirubin 0.6 mg/dL (0.15-1.2); Total Protein 6.7 g/dL (6.6-8.7)
--- NOTE | 2020-06-26 06:03 | PC.NURSE ---
called lab to verify lac and BC to be drawn
[2020-06-26] MEDS: LORazepam 2 mg/mL INJ 1 mL 1 MG IVP (06:12)
[2020-06-26 06:16] LABS: SARS Covid-2 Antigen Negative (Negative)
[2020-06-26 06:17] LABS: Influenza A by IFA Negative (Negative); Influenza B by IFA Negative (Negative)
[2020-06-26 06:50] LABS: Lactic Sepsis W/Reflex 2.6 mmol/L (0.5-2.2); Troponin 5 2HR 91.11 ng/L (0-15)
[2020-06-26 06:59] LABS: Troponin 5 2HR Delta 14.11 ABS# (0-10)
--- NOTE | 2020-06-26 07:03 | PC.NURSE ---
Report to ELBA Artis
--- NOTE | 2020-06-26 07:23 | CT_ITS ---
WS: [id number] CTA OF THE CHEST WITH PULMONARY EMBOLISM PROTOCOL TECHNIQUE: High-resolution contrast enhanced CTA of the chest with coronal and sagittal reformatted i mages with pulmonary embolism protocol. MIP images are also reviewed. CLINICAL INFORMATION: elevated d dimer COMPARISON: April 11, 2020 DLP: 786.[address] scans at [facility] use at least one of these dose optimization techniques: automat ed exposure control; mA and/or kV adjustment per patient size (includes targeted exams where dose is matched to clinical indication); or iterative reconstruction. FINDINGS: Moderate chronic emphysematous changes. Proximal main pulmonary arteries are patent. Diffuse Extensiv e filling defects involving the segmental and subsegmental pulmonary arteries bilaterally consistent with pulmonary embolus. This involves both lungs bilaterally worse. Cervix tiny right pleural effusion. Subsegmental atelectasis in the lung bases.Slightly spiculated no dule in the left upper lobe anteriorly measuring 8 mm. Recommend 3 month follow-up. Adrenal glands are normal. Fatty atrophy of the pancreas. Aortic calcification. Normal caliber thorac ic aorta. Coronary calcification. No mediastinal or hilar lymphadenopathy. CT/CT angio chest PE protcl [id number] IMPRESSION: 1. Extensive diffuse bilateral pulmonary emboli in the segmental and subsegmen anna pulmonary arteries. Proximal main pulmonary arteries are patent. 2. Subsegmental atelectasis with fibrosis in the lung bases. Tiny right pleura l effusion. 3. Slightly spiculated nodule in the left upper lobe anteriorly measuring 8 mm . Recommend 3 month follow-up. 4. No other significant changes from previous. Message left for Nikos Araiza DO at 06/26/2020 9:00 AM.
[2020-06-26 07:45] LABS: Add Urine Microscopic? YES; Bilirubin Urine Neg (Negative); Blood Urine Neg (Negative); Glucose Urine UA 2+ (Normal); Ketones Urine Negative (Negative); Leukocyte Esterase Urine Negative (Negative); Nitrate Urine Negative (Negative); Protein Urine 2+ (Negative); Specific Gravity, Urine 1.015 (1.005-1.030); Urine Appearance Clear (CLEAR); Urine Color Yellow (Yellow); Urobilinogen Urine Norm (Negative)
[2020-06-26 07:46] LABS: Add Urine Culture? No; Bacteria Urine 1+ /hpf; Squamous Epithelial Cell Urine 0-4 /hpf (0-5)
[2020-06-26 08:18] LABS: Reflex Lactate Order REFLEX LACTIC ORDERD
[2020-06-26] MEDS: iohexol 350 mg/mL 100 mL Btl IV (08:45)
[2020-06-26] MEDS: heparin 5,000 unit/mL INJ 1 mL 4000 UNIT IVP (08:55)
[2020-06-26] MEDS: heparin drip 25,000 UNIT/500 ML PREMIX 22.9 UNIT IV (08:57)
[2020-06-26 10:55] LABS: Lactic Acid level (Lactate) 2.1 mmol/L (0.5-2.2)
--- NOTE | 2020-06-26 15:41 | PM.HP ---
Providers/Chief Complaint Admitting Physician: Car Ballesteros MD Primary Care Provider: Amerioc Seo MD Chief Complaint: RESP. DISTRESS History of Present Illness Santiago Islas is a 80 year old male the presents to the emergency department with shortness of breath. He was recently discharged on June 21, having been admitted from June 19-. Diagnosis at that time was exacerbation of COPD. Patient was significantly short of breath when I visited with him, limiting my ability to get any significant history and physical from him. He had just come off BiPAP. Review of Systems General: Reports: ROS unobtainable due to medical condition (Severe dyspnea) Medications/Allergies Home Medications Medication Instructions Recorded Confirmed Last Taken Type metoprolol tartrate 25 mg tablet 25 mg PO BID 90 Days #180 tab 09/13/19 06/26/20 06/18/20 Rx levothyroxine 50 mcg tablet 50 mcg PO DAILY 90 Days #90 tab 10/17/19 06/26/20 06/18/20 Rx albuterol sulfate 90 mcg/actuation 2 puff INHALATION Q4H gm 11/07/19 06/26/20 06/18/20 History aerosol inhaler clopidogrel 75 mg tablet 75 mg PO DAILY 11/07/19 06/26/20 06/18/20 History quinapril 40 mg tablet 40 mg PO DAILY 11/07/19 06/26/20 06/18/20 History atorvastatin 10 mg tablet 10 mg PO DAILY #90 tab 02/22/20 06/26/20 06/18/20 Rx nifedipine 30 mg tablet,extended 30 mg PO DAILY #90 tab 03/26/20 06/26/20 06/18/20 Rx release Atrovent HFA See Rx Instructions .ROUTE .COMPLEX 04/10/20 06/26/20 06/18/20 History Brovana See Rx Instructions .ROUTE .COMPLEX 04/10/20 06/26/20 06/18/20 History budesonide-formoterol See Rx Instructions .ROUTE .COMPLEX 04/10/20 06/26/20 06/18/20 History diphenhydramine-acetaminophen 1 tab PO BEDTIME 04/10/20 06/26/20 06/17/20 History [Tylenol PM Extra Strength] docusate sodium [Colace] 100 mg PO BEDTIME 04/10/20 06/26/20 06/17/20 History tamsulosin 0.4 mg capsule 0.4 mg PO DAILY #90 cap 05/08/20 06/26/20 06/18/20 Rx alprazolam 0.5 mg tablet 0.5 mg PO TID PRN #70 tab 06/18/20 06/26/20 06/18/20 Rx prednisone 10 mg tablet 10 mg PO BID #60 tab 06/18/20 06/26/20 06/18/20 Rx amoxicillin-pot clavulanate 1 tab PO BID #13 tab 06/21/20 06/26/20 Unknown Rx prednisone See Rx Instructions .ROUTE 06/21/20 06/26/20 Unknown Rx .COMPLEX #20 tab Allergies Allergy/AdvReac Type Severity Reaction Status Date / Time hydromorphone Allergy unverified Verified 06/26/20 04:01 meperidine Allergy unverified Verified 06/26/20 04:01 nalbuphine Allergy unverified Verified 06/26/20 04:01 PFSH Acute PFSH: Medical History BPH (benign prostatic hyperplasia) COPD (chronic obstructive pulmonary disease) 2 L [id number] Underlying severe COPD. Currently do not hear wheezing. Does not appear to be in COPD exacerbation. Continue breathing treatments as needed. CVA (cerebral vascular accident) Right-sided residual weakness Edema Enrolled in chronic care management History of carotid artery stenosis Hyperglycemia Hypertension Hypertension Hypothyroidism TAIWO (obstructive sleep apnea) Oxygen dependent Pulmonary fibrosis Surgical History History of coronary artery stent placement History of endarterectomy CEA left-sided History of tonsillectomy Family History Other CAD (coronary artery disease) Stroke Social History Smoking and tobacco status: current every day smoker smokeless tobacco Alcohol intake: never Household members: family Housing: House Vitals/I&O/Wt Last Vital Signs Temp 98.5 F 06/26/20 15:00 Pulse 115 H 06/26/20 15:30 Resp 21 H 06/26/20 15:30 BP 180/97 06/26/20 15:30 Pulse Ox 94 06/26/20 15:30 Weight last 48 hrs Weight 81.647 kg Physical Exam Narrative: EXAM NARRATIVE: General exam is a white male, with rather severe dyspnea, that can only manage 1-2 word answers and a very soft voice. He appears confused. HEENT: Pupils equally round. Oropharynx clear. Neck is supple no lymphadenopathy or thyromegaly Cardiovascular tachycardic, no obvious murmur, regular Lungs diminished breath sounds bilaterally. Occasional wheeze Abdomen is soft nontender with positive bowel sounds. No obvious organomegaly was deferred Extremities no cyanosis clubbing or edema, cap refill brisk Skin no rash Neuro right side slightly weak. Appears to be somewhat confused. Data : 06/26/20 03:20 06/26/20 03:20 Other data: ABG demonstrated pH 7.46, PCO2 37, PO2 of 75 on 50% FiO2 by BiPAP Magnesium 2.4, troponin 77 with repeat 91, BNP 2170, LFTs largely normal Urinalysis no red 0 whites Influenza a and B- and rapid Covid negative. Recent PCR Covid June 19 negative CTA demonstrated extensive bilateral pulmonary emboli Small spiculated nodule left upper lobe 8 mm EKG demonstrates sinus tachycardia, normal axis, rate of 104 A&P Assessment and plan (1) Pulmonary embolism: Heparin drip Supportive care with oxygen Discussed with family they would like continued medical care but patient does allow natural Cannot rule out right heart strain. However, this will not significantly foreign exchange student coordinator at this point. Status: Acute (2) COPD (chronic obstructive pulmonary disease): Pulmonary toilet No need for steroids Oxygen dependent chronically on 2 L Status: Chronic Qualifiers: COPD type: chronic bronchitis Chronic bronchitis type: simple Qualified Code(s): J41.0 - Simple chronic bronchitis (3) CVA (cerebral vascular accident): Status: Chronic Additional A&P Information Hypertension. Continue home meds. Hydralazine as needed. Probable underlying dementia Hypothyroidism Multiple other medical problems as listed in past medical history Allow natural discussed with son. Heparin drip will suffice for DVT prophylaxis Attestations Medical Necessity Statement*: Will need greater than 2 midnight stay for evaluation and treatment of pulmonary emboli Time Spent in Patient Care: Greater than 35 minutes Coding Level of Care Code Acute Felting Machine Operator for [facility] Fwd Diagnoses Pulmonary embolism I26.99 COPD (chronic obstructive pulmonary disease) J41.0 COPD type: chronic bronchitis Chronic bronchitis type: simple CVA (cerebral vascular accident) I63.9
[2020-06-26] MEDS: sodium chloride 0.9% 1,000 ML 75 ML IV (17:16)
[2020-06-26] MEDS: metoprolol tartrate 25 mg Tablet PO (17:16)
[2020-06-26] MEDS: predniSONE 10 mg Tablet PO (17:16)
[2020-06-26 17:22] LABS: Partial Thromboplastin Time 214.6 SECONDS (23.9-36.7)
--- NOTE | 2020-06-26 19:34 | PC.NURSE ---
Heparin gtt started again at 18mL's per hour after being held for two hours per Doctor Lesli and ricky report. PTT to be drawn at midnight.
[2020-06-26] MEDS: ipratropium-albuterol 3 mL Neb INHALATION (20:27)
[2020-06-26] MEDS: docusate sodium 100 mg Capsule PO (20:54)
[2020-06-26] MEDS: ALPRAZolam 0.5 mg Tablet PO (21:24)
[2020-06-26] MEDS: hyDRALAzine 25 mg Tablet PO (21:24)
[2020-06-26] MEDS: OLANZapine 10 mg VIAL IM (22:11)
--- NOTE | 2020-06-26 22:17 | PC.NURSE ---
Patient in room, yelling out HELP database report writer and other staff approached patient multiple times to try to calm patient and redirect. Patient was not able to calm down. Patient was given PRN xanax and hydrazline per orders and waited 35 minutes, medication was not effective. Patients blood pressure continues to stay elevated and patient continues to get self worked up. Contacted Dr. Dickey and he entered orders for 10mg Zyprexa IM one time. Medication administered and awaiting to see if patient is able to relax and rest.
[2020-06-26 23:09] LABS: ABG PCO2 31.9 mmHg (35-45); ABG PH Result 7.52 (7.35-7.45); Alveolar-Arterial Oxygen Gradi 43.1 mmHg (5-10); Arterial Blood Gas Hematocrit 44.7 % (42-52); Base Excess ABG 3.9 mmol/L (-2.0-2.0); Blood Gas Allen Test Pos; Blood Gas Operator Identificat JB; Blood Gas Sample Site Radial, left; Blood Gas Sample Type Arterial; Carboxyhemoglobin 1.2 %THgb (0.4-20.1); HCO3 ABG 26.2 mmol/L (22-26); HGB O2 Sat 97.1 % (95-100); Ionized Calcium Level - ABG 1.2 mmol/L (1.1-1.4); Methemoglobin 0.4 % (0.4-1.5); Oxygen Device BIPAP; Oxygen Saturation ABG 98.7; PO2 ABG 89.4 mmHg (80.0-100.0); Potassium Level - ABG 4.6 mmol/L (3.5-5.0); Total Hemoglobin 14.6 g/dL (14-18)
[2020-06-27] VITALS (16 sets, daily range): BP systolic 106–137; BP diastolic 43–82; PULSE 117–133; RESP 16–35; TEMP 37.2–38.1; O2SAT 70–96
[2020-06-27] MEDS: LORazepam 2 mg/mL INJ 1 mL 0.25 MG IVP (00:01)
--- NOTE | 2020-06-27 00:07 | PC.NURSE ---
Patient continued to yell out and increased v/s. Contacted Dr. Dickey and received telephone orders of 0.25mg ativan IVP now. Administered per orders. Continuing to watch patient to decrease anxiety and stress related to shortness of breath. Patient is on Bipap at this time at 65%FIO2.
[2020-06-27 00:20] LABS: Partial Thromboplastin Time 115.2 SECONDS (23.9-36.7)
--- NOTE | 2020-06-27 00:26 | PC.NURSE ---
PTT results came in at 0022 of 115.2, IV Heparin drip decreased per protocol. Currently running at 13mL/Hr. New order for PTT redraw at 0622.
--- NOTE | 2020-06-27 00:28 | PC.NURSE ---
16 F pruett placed at approximately 2000 due to inability to void due to prostate issues. Contacted Dr. Dickey and orders to insert pruett were given. 200 mL's of urine upon insertion. Pruett is in place and draining appropriately.
[2020-06-27] MEDS: ipratropium-albuterol 3 mL Neb INHALATION ×2 (03:02→08:00)
--- NOTE | 2020-06-27 03:12 | PC.NURSE ---
IVF paused at 2300 due to increased SOB and lung sounds degrading. Notified Dr. Dickey of condition, obtained ABG and he gave orders to pause fluids until primary comes back on shift. Continue care.
[2020-06-27 04:10] LABS: Basophils # 0.1 10^3/uL (0.0-0.1); Basophils % 0.2 %; Hematocrit 42.4 % (42.0-52.0); Hemoglobin 13.2 g/dL (11.7-16.6); Lymphocytes # 0.7 10^3/uL (0.8-4.8); Lymphocytes % 2.4 %; Mean Corpuscular HGB Conc 31.1 g/dL (30.0-36.0); Mean Corpuscular Hemoglobin 29.9 pg (28.0-34.0); Mean Corpuscular Volume 95.9 fL (80-94); Mean Platelet Volume 10.9 fL (7.4-10.4); Monocytes # 1.3 10^3/uL (0.2-0.9); Monocytes % 4.6 %; Neutrophils # 25.38 10^3/uL (1.8-7.7); Neutrophils % 91.7 %; Nucleated Red Blood Cells % 0.1 %; Platelet Count 263 10^3/cmm (130-400); Red Blood Count 4.42 10^6/uL (4.1-5.3); Red Cell Distribution Width 14.5 % (12.1-15.1); White Blood Count 27.7 10^3/uL (4.0-10.0)
[2020-06-27 04:23] LABS: Anion Gap 19.4 (5-19); Blood Urea Nitrogen 35 mg/dL (8-23); Calcium 9.4 mg/dL (8.5-10.5); Carbon Dioxide 24 mmol/L (22-29); Chloride 99 mmol/L (98-107); Glucose 236 mg/dL (65-115); Osmolality Calculated 302 mOsm/kg (285-295); Potassium 4.4 mmol/L (3.5-5.1); Sodium 138 mmol/L (136-145)
[2020-06-27] MEDS: LORazepam 2 mg/mL INJ 1 mL IVP ×4 (04:50→16:59)
--- NOTE | 2020-06-27 05:14 | PC.NURSE ---
Dr. Dickey on unit and seen patient and anxiety/stress level associated with SOB and gave verbal orders for 2mg IVP Ativan one time. Medication administered per orders and patient is currently resting with eyes closed.
--- NOTE | 2020-06-27 06:12 | PC.NURSE ---
SHIFT SUMMARY: Patient currently resting in room with eyes closed and on heated high flow at 60% FIO2. Patient was very agitated and restless this shift. Several different medications were given to try to decrease anxiety and allow easier breathing. Patient had pruett inserted around 8pm for BPH and urine retention. Pruett is in place and draining appropriately. Patient was switched between HHF and Bipap throughout the night and patient found bipap continuously and HHF was placed again by RT. IV fluids were also placed on hold with orders from Dr. Dickey due to increased crackles, SOB, and increased adventitious heart sounds. Patients WBC is very elevated from this am lab results at greater than 27. Patient is also dusky/pale skin tone/color. Heparin gtt running currently per protocol at 13mL's/hr, next PTT is due at 0622. Denies pain, call light within reach. Continue care.
[2020-06-27 07:02] LABS: Partial Thromboplastin Time 63.1 SECONDS (23.9-36.7)
[2020-06-27] MEDS: piperacillin-tazobactam 3.375 GM in sodium chloride 0.9% (plus) 50 ML IV (07:56)
--- NOTE | 2020-06-27 10:43 | P.PN_ITS ---
Subjective Subjective: Interval history: Santiago will say a few words to me, but appears dyspneic. Nursing relates he was very anxious last night and required some Ativan. Medications: Reviewed: Yes Vitals/I&O/Wt Last Vital Signs Temp 100.5 F H 06/27/20 08:00 Pulse 127 H 06/27/20 10:41 Resp 27 H 06/27/20 10:41 BP 129/75 06/27/20 10:41 Pulse Ox 94 06/27/20 10:41 06/26/20 06/27/20 06/27/20 22:59 06:59 14:59 Intake Total 405.145 / 405.145 475 / 880.145 Output Total 50 / 50 525 / 575 50 / 50 Balance 355.145 / 355.145 -50 / 305.145 -50 / -50 Weight last 48 hrs Weight 69.938 kg Weight 81.647 kg Physical Exam Narrative: EXAM NARRATIVE: General exam is a white male moderate dyspnea Neck is supple no lymphadenopathy or thyromegaly Cardiovascular tachycardic, no obvious murmur, regular Lungs diminished breath sounds bilaterally. Abdomen is soft nontender with positive bowel sounds. No obvious organomegaly Extremities no cyanosis clubbing or edema, cap refill brisk Urinary Catheter Management^: Navarro: Cath Placed During This Visit: yes Reason for Continuing Indwelling Catheter: Accurate Measurement of Urinary Output in Critically Ill Patients Urinary Catheter Date of Insertion: 06/26/20 Urinary Catheter Time of Insertion: 20:00 Data : 06/27/20 03:55 06/27/20 03:55 A&P Assessment and plan (1) Pulmonary embolism: Continue heparin drip Supportive care with oxygen Discussed with family they would like continued medical care but patient does allow natural Cannot rule out right heart strain. However, this will not significantly supervisor policy change clerks at this point. Quiring 55% high flow oxygen currently. Status: Acute (2) COPD (chronic obstructive pulmonary disease): Pulmonary toilet Increase prednisone that he is chronically on to stress dose Oxygen dependent chronically on 2 L Status: Chronic Qualifiers: COPD type: chronic bronchitis Chronic bronchitis type: simple Qualified Code(s): J41.0 - Simple chronic bronchitis (3) CVA (cerebral vascular accident): Status: Chronic Additional A&P Information Fever, increasing white blood cell count. Add Zosyn IV. MRSA PCR. Add vancomycin. Hypertension. Continue home meds. Hydralazine as needed. Probable underlying dementia Hypothyroidism Multiple other medical problems as listed in past medical history Allow natural discussed with son. Heparin drip will suffice for DVT prophylaxis 06/27 discussed with son goals of care. He is moving toward comfort measures. He is okay with transitioning out of ICU. Will be visiting with family, coming in to visit the patient to determine if they want to pull back on all treatment and do comfort. Attestations Medical Necessity Statement*: Continued hospitalization for IV anticoagulants secondary to bilateral pulmonary emboli Coding Level of Care Code Acute Product Engineering Manager for [facility] Fwd Diagnoses Pulmonary embolism I26.99 COPD (chronic obstructive pulmonary disease) J41.0 COPD type: chronic bronchitis Chronic bronchitis type: simple CVA (cerebral vascular accident) I63.9
--- NOTE | 2020-06-27 14:39 | PC.NURSE ---
FAMILY AT BEDSIDE D/T DECISION TO PLACE PT ON COMFORT CARE. DR CEDILLO TALKED WITH FAMILY. IMMEDIATE FAMILY AT BEDSIDE.
--- NOTE | 2020-06-27 14:41 | PC.NURSE ---
Addendum entered by Rita Dhaliwal RN 06/27/20 18:47: 1835--NOTIFIED RYNE AT [facility] OF TIME OF 175. RANDY WAS PROVIDED FAMILY CONTACT. Original Note: NOTIFIED MAGALIE AT [facility] TRANSPLANT THAT PT WAS BEING PLACED ON COMFORT CARE. SHE INSTRUCTED TO CALL BACK AT TIME OF .
[2020-06-27] MEDS: morphine 4 mg/mL SDV 1 mL IVP ×3 (14:54→16:58)
--- NOTE | 2020-06-27 15:12 | PC.NURSE ---
COMFORT CARE-- HEATED HIGH FLOW NASAL CANNULA REMOVED FROM PT & PLACED ON 2L/NC. MORPHINE & ATIVAN GIVEN. FAMILY AT BEDSIDE.
--- NOTE | 2020-06-27 18:39 | PC.NURSE ---
TIME OF 1755-- DAUGHTERS AT BEDSIDE. RANDY NOTIFIED [phone] FAMILY REQUESTED [facility].
--- NOTE | 2020-06-27 20:23 | PC.NURSE ---
Postmortem care completed at this time. Navarro catheter and IV's removed.
--- NOTE | 2020-06-27 21:15 | PC.NURSE ---
CHRISSIE Hdez from [facility] called unit reported patient is on registry for donation and contacting son.
--- NOTE | 2020-06-27 22:06 | PC.NURSE ---
More time [id number]
--- NOTE | 2020-06-28 10:41 | PC.NURSE ---
[facility] called and stated that after reviewing the pts notes they were not going to be able to accept the pt as a donor. Dorcas Bailon contacted me soon after and is on the way to worm picker the pt.
--- NOTE | 2020-06-28 13:01 | P.DES_ITS ---
Discharge Providers DDS Date of Admission: 06/26/20 07:18 Date Summary Completed: 07/02/20 Attending Provider at Admission: Car Ballesteros MD Time of : 17:55 Attending Provider at Discharge: Car Ballesteros MD Primary Care Provider: Americo Seo MD DS Diagnoses Hospital Diagnoses (1) Pulmonary embolism: (2) COPD (chronic obstructive pulmonary disease): Problem details: 2 L [id number] Underlying severe COPD. Currently do not hear wheezing. Does not appear to be in COPD exacerbation. Continue breathing treatments as needed. Qualifiers: COPD type: chronic bronchitis Chronic bronchitis type: simple Qualified Code(s): J41.0 - Simple chronic bronchitis (3) CVA (cerebral vascular accident): Problem details: Right-sided residual weakness Reason for Visit Reason for Visit: RESP. DISTRESS Summary Date and Time of Date of : 06/27/20 Time of : 17:55 Summary Summary: Santiago is an 80-year-old white male with significant COPD who presented to the hospital on June 26 with severe shortness of breath. He had recently been in the hospital for COPD exacerbation being discharged on June 21. He had a prior history of CVA, some significant memory deficits according to his family, severe COPD, and a multitude of other medical diagnoses. On admission he was requiring BiPAP. Work-up in the emergency department demonstrated that he was influenza a and B-, rapid Covid negative. CTA demonstrated extensive bilateral pulmonary emboli. He was placed on a heparin drip, and transition to the ICU. I discussed with his family treatment for pulmonary embolism, and the patient's goals. They made it clear from admission that they did not want the patient intubated, or to receive CPR as these were his wishes. The following day the patient had transition to high flow oxygen with an FiO2 of 55%. He was not really able to give any significant verbal response. Patient's family approached me again, reporting the patient had very poor quality of life, significant memory deficits, severe COPD, history of stroke. They reported he would not want to continue on his condition prior to having the pulmonary emboli secondary to his breathing and memory issues. They reported he was anxious all the time, and at this time would want to pursue comfort measures as his overall outcome is likely to be poor. Therefore, the patient was put on comfort measures after visiting with all of his children regarding this who confirmed that he would want comfort. Additional Data Advance directives?: No Discharge Plan Discharge Patient Disposition: At Medical Facility Prescriptions: No Action albuterol sulfate [Ventolin HFA] 90 mcg/actuation HFA aerosol inhaler 2 puff INHALATION Q4H RF: 0 quinapril 40 mg tablet 40 mg PO DAILY RF: 0 clopidogrel [Plavix] 75 mg tablet 75 mg PO DAILY RF: 0 metoprolol tartrate 25 mg tablet 25 mg PO BID 90 Days Qty: 180 RF: 3 levothyroxine 50 mcg tablet 50 mcg PO DAILY 90 Days Qty: 90 RF: 3 atorvastatin [Lipitor] 10 mg tablet 10 mg PO DAILY Qty: 90 RF: 3 nifedipine 30 mg tablet extended release 30 mg PO DAILY Qty: 90 RF: 3 tamsulosin [Flomax] 0.4 mg capsule 0.4 mg PO DAILY Qty: 90 RF: 1 alprazolam 0.5 mg tablet 0.5 mg PO TID PRN (Reason: anxiety) Qty: 70 RF: 1 prednisone 10 mg tablet 10 mg PO BID Qty: 60 RF: 1 Hold Instructions: Resume on 07/03/20. amoxicillin-pot clavulanate 875-125 mg Tablet 1 tab PO BID Qty: 13 RF: 0 prednisone 20 mg tablet See Rx Instructions .ROUTE .COMPLEX Qty: 20 RF: 0 docusate sodium [Colace] 100 mg Capsule 100 mg PO BEDTIME RF: 0 diphenhydramine-acetaminophen [Tylenol PM Extra Strength] 25-500 mg Tablet 1 tab PO BEDTIME RF: 0 Atrovent HFA 17 mcg/actuation Hfa Aerosol Inhaler See Rx Instructions .ROUTE .COMPLEX RF: 0 Brovana 15 mcg/2 mL Solution For Nebulization See Rx Instructions .ROUTE .COMPLEX RF: 0 budesonide-formoterol See Rx Instructions .ROUTE .COMPLEX RF: 0 DS Attestations Time Spent in /Discharge Care*: greater than 30 min Quality - AMI: AMI present?: No Quality - Stroke: CVA present?: No Quality - VTE: VTE present?: Yes Deep Vein Thrombosis/Pulmonary Embolism Present on Admission: Yes Coding Level of Care Code Acute Tea Blender for [facility] Diagnoses Pulmonary embolism I26.99 COPD (chronic obstructive pulmonary disease) J41.0 COPD type: chronic bronchitis Chronic bronchitis type: simple CVA (cerebral vascular accident) I63.9
== END 2020-06-27 21:15 | disposition expired | DRG 176 ==
LOC: ER 07:22 → ICU 14:16
PROVIDERS: Emergency Medicine; Internal Medicine; Admitting Provider Internal Medicine; Emergency Provider Family Medicine; PCP Family Medicine; Visit Provider Internal Medicine
DX: I26.99 Other pulmonary embolism without acute cor pulmonale (principal); I69.951 Hemiplegia and hemiparesis following unspecified cerebrovascular disease affecting right dominant side; J41.0 Simple chronic bronchitis; N40.0 Benign prostatic hyperplasia without lower urinary tract symptoms; Z99.81 Dependence on supplemental oxygen; I69.911 Memory deficit following unspecified cerebrovascular disease; I10 Essential (primary) hypertension; E03.9 Hypothyroidism, unspecified; G47.33 Obstructive sleep apnea (adult) (pediatric); Z66 Do not resuscitate; Z87.891 Personal history of nicotine dependence; F03.90 Unspecified dementia, unspecified severity, without behavioral disturbance, psychotic disturbance, mood disturbance, and anxiety; Z51.5 Encounter for palliative care; F41.9 Anxiety disorder, unspecified
CPT/HCPCS: 12345; 36415; 36600; 51702; 71045; 71275; 80048; 80051; 80053; 81001; 82330; 82803; 82805; 83605; 83690; 83735; 83880; 84484; 85025; 85378; 85610; 85730; 87426; 87641; 87804; 93005; 94640; 94660; 96372; 96375; 99283; J1644; J2060; J2270; J2543; J3490; J7030; J7512; Q9967